=== PATIENT | male | born 1995 | race American Indian/Alaskan Native ===

== ENCOUNTER → 2016-08-02 | Outpatient (CLI) | payer BC ==
[~2016-08-02] MED LIST: CNC/36 PO; CSPOPS; TRAVATAN Z OPTH
--- NOTE | 2016-08-02 08:41 | DIAGNOSTIC IMAGING REPORT ---
THYROID ULTRASOUND CLINICAL HISTORY: Cervicalgia. COMPARISON STUDY: None. TECHNIQUE: Sonography of the thyroid gland was performed. In addition, sonography of the right aspect of the neck at site of maximal pain was performed. FINDINGS: The right thyroid lobe measures 5.3 x 1.3 x 1.7 cm and the left lobe measures 5.8 x 1.7 x 1.6 cm. No thyroid nodules are identified. The gland is normal in appearance. The isthmus measures 0.4 cm in thickness. Sonography of the right aspect of the neck at site of pain demonstrated no abnormality. A few morphologically benign lymph nodes were noted. IMPRESSION: 1. Normal sonographic appearance of the thyroid gland. 2. No sonographic abnormality identified within the right neck at site of pain. Several morphologically benign lymph nodes. Electronically signed by: Russell Knapp M.D. 08/02/2016 8:40 AM Dictated Date/Time: 08/02/2016 8:38 AM
== END | disposition home or self-care (01) ==
LOC: C.ULTR 08:12
PROVIDERS: ATTEND Family Medicine
DX: M54.2 Cervicalgia (principal)

== ENCOUNTER 2020-04-01 10:40 | Inpatient (IN) ==
[2020-04-01] MEDS ORDERED: cefTRIAXone SODIUM 1,000 MG/50 ML BAG IV STA (11:32)
[2020-04-01] MEDS ORDERED: MoRPHine SULFATE 4 MG/ML 1 ML CARP\\VIAL IV STA ×2 (11:36→14:26)
[2020-04-01 12:28] LABS: Basophils # (auto) 0.03 K/uL (0-0.2); Basophils % (auto) 0.2 %; Eosinophils # (auto) 0.22 K/uL (0-0.5); Eosinophils % (auto) 1.4 %; Hematocrit (blood only) 49.6 % (42-52); Hemoglobin 17.3 g/dL (14.0-18.0); Immature Granulocytes # (auto) 0.03 K/uL (0.00-0.02); Immature Granulocytes % (auto) 0.2 %; Lymphocytes # (auto) 2.01 K/uL (1.2-3.4); Lymphocytes % (auto) 13.2 %; Mean Corpuscular Hemoglobin 29.2 pg (25-34); Mean Corpuscular Hgb Conc 34.9 g/dL (32-36); Mean Corpuscular Volume 83.8 fL (80-100); Monocytes # (auto) 1.73 K/uL (0.11-0.59); Monocytes % (auto) 11.4 %; Neutrophils # (auto) 11.21 K/uL (1.4-6.5); Neutrophils % (auto) 73.6 %; Platelet Count 209 K/uL (130-400); RDW Coefficient of Variation 12.7 % (11.5-14.5); RDW Standard Deviation 38.5 fL (36.4-46.3); Red Blood Count 5.92 M/uL (4.7-6.1); White Blood Count 15.23 K/uL (4.8-10.8)
[2020-04-01 12:43] LABS: INR 1.1 (0.9-1.1); Partial Thromboplastin Ratio 1.2; Partial Thromboplastin Time 32.1 Seconds (21.0-31.0); Prothrombin Time 11.9 Seconds (9.0-12.0)
[2020-04-01 12:47] LABS: Albumin Level 4.2 gm/dl (3.4-5.0); BUN Creatinine Ratio 14.9 (10-20); Calcium 10.2 mg/dl (8.5-10.1); Creatinine Clr Calc Pharmacy 96.1 ml/min; Est GFR (African American) 134.4; Potassium 4.1 mmol/L (3.5-5.1)
[2020-04-01 12:49] LABS: Albumin Globulin Ratio 0.9 (0.9-2); Bilirubin,Total 1.2 mg/dl (0.2-1); C Reactive Protein 10.5 mg/dl (0-0.29); Globulin 4.6 gm/dl (2.5-4.0); Total Protein 8.8 gm/dl (6.4-8.2)
[2020-04-01 13:23] LABS: Lyme Ab IgG w/WB Rflx Negative (Negative); Lyme Ab IgM w/WB Rflx Negative (Negative)
[2020-04-01] MEDS ORDERED: IOVERSOL 100ml IV ONE (13:34)
--- NOTE | 2020-04-01 13:56 | CT Scan Report ---
ABDOMEN AND PELVIS CT WITH IV CONTRAST CT DOSE: 250.35 mGy.cm HISTORY: Acute infection of the right leg and inguinal tissues. right groin erythema, induration, de creased ROM TECHNIQUE: Multiaxial CT images of the abdomen and pelvis were performed following the IV administrat ion of 94 cc of Optiray 320, A dose lowering technique was utilized adhering to the principles of AL MISHA. COMPARISON STUDY: CT abdomen and pelvis 03/06/2020 FINDINGS: Clear lung bases. No pneumatosis or pneumoperitoneum. The imaged inferior cardiac chambers are unrema rkable. Pectus excavatum. Spleen, pancreas, adrenal glands, gallbladder and liver are unremarkable. T here is patency of the hepatic and portal veins. Kidneys and ureters are unremarkable. Mild nonspecif ic urinary bladder wall thickening. The prostate is mildly prominent in size. Aorta and IVC are withi n normal limits. No bowel obstruction or bowel wall thickening. Mild fecal retention. Scattered small bowel air-fluid levels, likely physiologic. The appendix is noninflamed. There is moderate edema of the anterior right pelvic wall extending into the right inguinal tissues. There is associated skin thickening and enhancement. Multiloculated fluid collection of the anterior abdominal wall superficial to the anterior inferior iliac spine is noted with the more superior porti on of the collection measuring 2.9 x 1.0 cm in the lower portion of the collection measuring 2.4 x 0. 6 cm demonstrating peripheral enhancement. Prominent right inguinal chain lymph nodes measure up to 8 mm. Bones appear intact. IMPRESSION: 1. Subcutaneous edema and skin thickening of the lower right anterior pelvic wall extending into the right inguinal tissues suggests acute cellulitis. Additionally, there is a small multiloculated curvi linear fluid collection suggestive of abscess, largest pocket measuring up to 2.9 x 1.0 cm. 2. Reactive right inguinal chain adenopathy. 3. No acute intra-abdominal or intrapelvic abnormality. 4. Normal appendix. ACT 112: Negative or not required by law. The above report was generated using voice recognition software. It may contain grammatical, syntax o r spelling errors. Electronically signed by: Bal Ziegler M.D. 04/01/2020 1:55 PM
--- NOTE | 2020-04-01 14:45 | Emergency Department Note ---
History of Present Illness General Chief complaint: Infection Stated complaint: LEG INFECTION Time Seen by Provider: 04/01/20 11:06 Source: patient Mode of arrival: ambulatory Limitations: no limitations History of Present Illness Provider Complaint: + abscess/boil and + discoloration Onset (ago): 2 day(s) Tetanus up to date: yes Location: + RLE (right groin) Severity: severe Maximum Pain Intensity: 7 Current Pain Intensity: 7 Quality: + aching and + sharp Pain Consistency: + constant Relieved By: + immobilization Exacerbated By: + palpation and + movement Context: + none Associated symptoms: + fever, + chills and + malaise Treatments prior to arrival: + antibiotic (Bactrim x2 doses) HPI narrative: This 24-year-old male patient with significant past medical history of CMT and "bladder control issues" presents to the emergency department today for evaluation of right groin infection. The patient states 2 days ago, he noticed a blackhead in the right groin. He thought it to be associated with an ingrown hair. He saw [employer] [facility] yesterday and was started on Bactrim. He states at that time, the pain was radiating toward his hip and further into the groin. The patient reports significant pain with palpation. He was started on Bactrim at this time and has taken 2 doses. He followed up with his PCP today and was sent to the ED for further evaluation. The patient reports a fever of 101 F last night. He reports associated chills and sweats and is feeling somewhat short of breath. Movement makes the pain significantly worse, as does palpation. Remaining still seems to help somewhat. The patient did take a tramadol last evening without relief. He did not take any medication for his symptoms today. He denies any active discharge or bleeding. He denies any trauma to the area. He is having difficulty with ambulation due to the pain. Home Medications Home Medications Medication Instructions Recorded Confirmed Type cyclobenzaprine 10 mg PO TID PRN 07/17/19 04/01/20 History albuterol sulfate 2 puff INHALATION QID PRN 03/06/20 04/01/20 History food supplemt, lactose-reduced 1 ea PO TID 03/06/20 04/01/20 History [Ensure High Protein] nystatin [Nystop] 1 applic TOPICAL BID 03/06/20 04/01/20 History oxybutynin chloride 10 mg PO DAILY 03/06/20 04/01/20 History tramadol [Ultram] 50 mg PO Q6 PRN 03/06/20 04/01/20 History Allergies Allergy/AdvReac Type Severity Reaction Status Date / Time bee venom protein (honey bee) Allergy Unknown Verified 04/01/20 11:17 pollen extracts Allergy Unknown Verified 04/01/20 11:17 PEANUT CONTAING DRUG PRODUCTS Allergy Unknown Uncoded 04/01/20 11:17 Past Med/Surg History Medical History Eoockcb-Lnjil-Lrtqs disease Glaucoma Surgical History No pertinent past surgical history Family History Other No known problems Social History Smoking Status: Current every day smoker Tobacco Type: Cigarettes Preferred Language: Austrian marital status: single current occupational status: employed Feels Safe at Home: Yes Review of Systems A total of 10 systems reviewed and were otherwise negative Physical Exam Vital Signs: Vital Signs - 24 hr 04/01/20 10:45 04/01/20 12:32 04/01/20 14:00 Temperature 36.6 C Temperature Source Oral Pulse Rate 108 H Pulse Rate [Apical ] 94 H 90 Respiratory Rate 18 20 16 Blood Pressure 127/79 Blood Pressure [Le ft Arm] 124/76 130/69 Blood Pressure Juliane n 95 Blood Pressure Juliane n [Left Arm] 92 89 Pulse Oximetry 100 99 98 Oxygen Delivery Me thod Room Air Room Air Room Air Sepsis Recent Feve r Within 48 Hours No Sepsis New/Unexpla ined Change in Men sima Status No Sepsis Action Take n by Nursing No Action Required 04/01/20 16:16 Temperature Temperature Source Pulse Rate Pulse Rate [Apical ] 89 Respiratory Rate 18 Blood Pressure Blood Pressure [Le ft Arm] 131/79 Blood Pressure Juliane n Blood Pressure Juliane n [Left Arm] 96 Pulse Oximetry 99 Oxygen Delivery Me thod Room Air Sepsis Recent Feve r Within 48 Hours Sepsis New/Unexpla ined Change in Men sima Status Sepsis Action Take n by Nursing Physical Exam: VITALS: Vitals are noted on the nurse's note and reviewed by myself. Patient is tachycardic. GENERAL: This is a 24-year-old white male, in no acute distress, nondiaphoretic, well-developed well-nourished. SKIN: Extensive cellulitis of the right groin with abscess approximately 3 x 3 cm with pinpoint opening. Warmth, erythema, and significant tenderness of the groin. There is cellulitic changes extending up toward the right abdominal wall and into the right scrotum. The skin was otherwise without rashes, erythema, edema, or bruising. There is no tenting of the skin. Capillary refill less than 2 seconds. HEAD: Normocephalic atraumatic. EYES: Conjunctivae without injection, sclerae without icterus. NECK: Supple without nuchal rigidity. No cervical lymphadenopathy. HEART: Regular rate and rhythm without murmurs gallops or rubs. LUNGS: Clear to auscultation bilaterally without wheezes, rales or rhonchi. No retractions or accessory muscle use. ABDOMEN: Positive bowel sounds x 4. Normal tympanic percussion. Soft, nontender, without masses or organomegaly. No guarding or rebound tenderness. MUSCULOSKELETAL: No muscle atrophy, erythema, or edema noted. Significant tenderness with range of motion of the right lower extremity at the hip. Full range of motion without joint tenderness in all extremities. No tenderness to palpation. Lymph gait. Strength 5/5 throughout. NEURO: Patient was alert and oriented to person place and time. Normal sensation to light and sharp touch. Deep tendon reflexes 2+ throughout. No focal neurological deficits. Course Course The patient was seen and evaluated as above. An order was placed for continuous cardiac monitoring. The monitor shows a sinus tachycardia at a rate of 115 bpm. IV access obtained, labs drawn. Patient medicated with IV fluids, morphine, and ceftriaxone. Imaging performed and reviewed by myself and radiologist as noted. Labs reviewed by myself. I discussed the findings with the patient at bedside. I discussed the case with my attending. I consulted Dr. Apple, general surgeon on-call. She did agree to see and ev aluate the patient and ultimately performed an I&D. She is requesting that the patient be admitted to medicine for 2 days of IV antibiotics and she will consult. I discussed the case with Manjula Morales PA-C with [facility] service. She did agree to see and evaluate the patient for admission. Administered Medications Discontinued Medications Ceftriaxone Sodium (Rocephin) 1,000 mg in 50 mls @ 100 mls/hr IV NOW STA Stop: 04/01/20 12:01 Last Infusion: 04/01/20 13:05 Dose: 0 mls/hr Documented by: [id number] Admin: 04/01/20 12:24 Dose: 100 mls/hr Documented by: [id number] Ioversol (Ioversol 100ml) 94 ml IV ONCE ONE Stop: 04/01/20 13:35 Last Admin: 04/01/20 13:35 Dose: 94 ml Documented by: [id number] Morphine Sulfate (Morphine Sulfate 4 Mg/Ml 1 Ml Carp\\Vial) 4 mg IV NOW STA Stop: 04/01/20 11:37 Last Admin: 04/01/20 12:25 Dose: 4 mg Documented by: [id number] Morphine Sulfate (Morphine Sulfate 4 Mg/Ml 1 Ml Carp\\Vial) 4 mg IV NOW STA Stop: 04/01/20 14:27 Last Admin: 04/01/20 14:46 Dose: 4 mg Documented by: [id number] Medical Decision Making Differential Diagnosis + abscess of skin or subcutaneous tissue, + dermatophytosis, + herpes zoster, + cellulitis, + cellulitis, + necrotizing fasciitis and + drug eruption Home Medications Current Medication List: was personally reviewed by me Laboratory Data Attestation: I reviewed the patient's lab results. Leukocytosis of 15,000. No anemia or thrombocytopenia. Inflammatory markers e levated. Renal, hepatic function and electrolytes without significant abnormality. Coags normal. Lactic acid 1.2. Lyme disease testing negative. Result diagrams: 04/01/20 12:00 04/01/20 12:00 Lab Results 04/01/20 04/01/20 04/01/20 Range/Units 12:00 12:00 12:00 WBC 15.23 H (4.8-10.8) K/uL RBC 5.92 (4.7-6.1) M/uL Hgb 17.3 (14.0-18.0) g/dL Hct 49.6 (42-52) % MCV 83.8 (80-100) fL MCH 29.2 (25-34) pg MCHC 34.9 (32-36) g/dL RDW Std Deviation 38.5 (36.4-46.3) fL RDW Coeff of Ashok 12.7 (11.5-14.5) % Plt Count 209 (130-400) K/uL MPV 10.0 (7.4-10.4) fL Immature Gran % (Auto) 0.2 % Neut % (Auto) 73.6 % Lymph % (Auto) 13.2 % [place] % (Auto) 11.4 % Eos % (Auto) 1.4 % Baso % (Auto) 0.2 % Neut # (Auto) 11.21 H (1.4-6.5) K/uL Lymph # (Auto) 2.01 (1.2-3.4) K/uL [place] # (Auto) 1.73 H (0.11-0.59) K/uL Eos # (Auto) 0.22 (0-0.5) K/uL Baso # (Auto) 0.03 (0-0.2) K/uL Immature Gran # (Auto) 0.03 H (0.00-0.02) K/uL ESR 42 H (0-14) mm/hr PT (9.0-12.0) Seconds INR (0.9-1.1) APTT (21.0-31.0) Seconds PTT Ratio Sodium 134 L (136-145) mmol/L Potassium 4.1 (3.5-5.1) mmol/L Chloride 101 (98-107) mmol/L Carbon Dioxide 26 (21-32) mmol/L Anion Gap 7.0 (3-11) BUN 14 (7-18) mg/dl Creatinine 0.92 (0.6-1.4) mg/dl Est Cr Clr Drug Dosing 96.1 ml/min Est GFR ( Amer) 134.4 Est GFR (Non-Af Amer) 116.0 BUN/Creatinine Ratio 14.9 (10-20) Glucose 83 (70-99) mg/dl Lactate (0.4-2.0) mmol/L Calcium 10.2 H (8.5-10.1) mg/dl Total Bilirubin 1.2 H (0.2-1) mg/dl AST 15 (15-37) U/L ALT 25 (12-78) U/L Alkaline Phosphatase 72 (45-117) U/L C-Reactive Protein 10.50 H (0-0.29) mg/dl Total Protein 8.8 H (6.4-8.2) gm/dl Albumin 4.2 (3.4-5.0) gm/dl Globulin 4.6 H (2.5-4.0) gm/dl Albumin/Globulin Ratio 0.9 (0.9-2) Lyme Disease IgG Ab (Negative) Lyme Disease IgM Ab (Negative) 04/01/20 04/01/20 04/01/20 Range/Units 12:00 12:00 12:00 WBC (4.8-10.8) K/uL RBC (4.7-6.1) M/uL Hgb (14.0-18.0) g/dL Hct (42-52) % MCV (80-100) fL MCH (25-34) pg MCHC (32-36) g/dL RDW Std Deviation (36.4-46.3) fL RDW Coeff of Ashok (11.5-14.5) % Plt Count (130-400) K/uL MPV (7.4-10.4) fL Immature Gran % (Auto) % Neut % (Auto) % Lymph % (Auto) % [place] % (Auto) % Eos % (Auto) % Baso % (Auto) % Neut # (Auto) (1.4-6.5) K/uL Lymph # (Auto) (1.2-3.4) K/uL [place] # (Auto) (0.11-0.59) K/uL Eos # (Auto) (0-0.5) K/uL Baso # (Auto) (0-0.2) K/uL Immature Gran # (Auto) (0.00-0.02) K/uL ESR (0-14) mm/hr PT 11.9 (9.0-12.0) Seconds INR 1.1 (0.9-1.1) APTT 32.1 H (21.0-31.0) Seconds PTT Ratio 1.2 Sodium (136-145) mmol/L Potassium (3.5-5.1) mmol/L Chloride (98-107) mmol/L Carbon Dioxide (21-32) mmol/L Anion Gap (3-11) BUN (7-18) mg/dl Creatinine (0.6-1.4) mg/dl Est Cr Clr Drug Dosing ml/min Est GFR ( Amer) Est GFR (Non-Af Amer) BUN/Creatinine Ratio (10-20) Glucose (70-99) mg/dl Lactate 1.2 (0.4-2.0) mmol/L Calcium (8.5-10.1) mg/dl Total Bilirubin (0.2-1) mg/dl AST (15-37) U/L ALT (12-78) U/L Alkaline Phosphatase (45-117) U/L C-Reactive Protein (0-0.29) mg/dl Total Protein (6.4-8.2) gm/dl Albumin (3.4-5.0) gm/dl Globulin (2.5-4.0) gm/dl Albumin/Globulin Ratio (0.9-2) Lyme Disease IgG Ab Negative (Negative) Lyme Disease IgM Ab Negative (Negative) Imaging Data Radiologist's Impression: ABDOMEN AND PELVIS CT WITH IV CONTRAST CT DOSE: 250.35 mGy.cm HISTORY: Acute infection of the right leg and inguinal tissues. right groin erythema, induration, decreased ROM TECHNIQUE: Multiaxial CT images of the abdomen and pelvis were performed following the IV administration of 94 cc of Optiray 320, A dose lowering technique was utilized adhering to the principles of ALARA. COMPARISON STUDY: CT abdomen and pelvis 03/06/2020 FINDINGS: Clear lung bases. No pneumatosis or pneumoperitoneum. The imaged inferior cardiac chambers are unremarkable. Pectus excavatum. Spleen, pancreas, adrenal glands, gallbladder and liver are unremarkable. There is patency of the hepatic and portal veins. Kidneys and ureters are unremarkable. Mild nonspecific urinary bladder wall thickening. The prostate is mildly prominent in size. Aorta and IVC are within normal limits. No bowel obstruction or bowel wall thickening. Mild fecal retention. Scattered small bowel air-fluid levels, likely physiologic. The appendix is noninflamed. There is moderate edema of the anterior right pelvic wall extending into the rig ht inguinal tissues. There is associated skin thickening and enhancement. Multiloculated fluid collection of the anterior abdominal wall superficial to the anterior inferior iliac spine is noted with the more superior portion of the collection measuring 2.9 x 1.0 cm in the lower portion of the collection measuring 2.4 x 0.6 cm demonstrating peripheral enhancement. Prominent right inguinal chain lymph nodes measure up to 8 mm. Bones appear intact. IMPRESSION: 1. Subcutaneous edema and skin thickening of the lower right anterior pelvic wall extending into the right inguinal tissues suggests acute cellulitis. Additionally, there is a small multiloculated curvilinear fluid collection suggestive of abscess, largest pocket measuring up to 2.9 x 1.0 cm. 2. Reactive right inguinal chain adenopathy. 3. No acute intra-abdominal or intrapelvic abnormality. 4. Normal appendix. ACT 112: Negative or not required by law. The above report was generated using voice recognition software. It may contain grammatical, syntax or spelling errors. Electronically signed by: Bal Ziegler M.D. 04/01/2020 1:55 PM Blood Pressure Blood Pressure Findings: Elevated blood pressure Blood Pressure Disposition: elevated BP felt to be situational MDM Narrative This 24-year-old male patient presents to the emergency department today for evaluation of an abscess in the right groin. Patient does have a multiloculated abscess noted in the right groin on CT imaging. He does have a leukocytosis of 15,000 and was febrile last evening. Given the location and size of the abscess , I did elect to contact the general surgeon on-call, Dr. Apple, who did see and evaluate the patient. She did perform a bedside I&D in the emergency department. She is recommending the patient be admitted to the medicine service for IV antibiotics and she will follow-up regarding the abscess. I did discuss the case with the [facility] hospitalist service, who were agreeable to the admission. Please see hospitalist and surgery dictation regarding ongoing management care of this patient. The chart was completed utilizing [employer] voice recognition software. Grammatical errors, random word insertions, pronoun errors, and incomplete sentences are an occasional consequence of this system due to software limitations, ambient noise, and hardware issues. Any formal questions or rema rns about the content, text, or information contained within the body of this dictation should be directly addressed to the provider for clarification. Impression & Plan Cellulitis of groin, right, Abscess of groin, right Discharge Plan Visit Data Chief Complaint: Infection Stated Complaint: LEG INFECTION ED Provider: Serjio Stone ED Midlevel Provider: Sena Cash Discharge Problem: Cellulitis of groin, right, Abscess of groin, right Patient Disposition: Admitted As Inpatient Forms Stand Alone Forms: [facility] Prescriptions Prescriptions: No Action cyclobenzaprine 10 mg Tablet 10 mg PO TID PRN (Reason: muscle spasms) RF: 0 oxybutynin chloride 15 mg tablet extended release 24hr 10 mg PO DAILY RF: 0 tramadol [Ultram] 50 mg tablet 50 mg PO Q6 PRN (Reason: Pain) RF: 0 nystatin [Nystop] 100,000 unit/gram powder 1 applic TOPICAL BID RF: 0 albuterol sulfate 90 mcg/actuation HFA aerosol inhaler 2 puff INHALATION QID PRN (Reason: Shortness Of Breath Or Wheezing) RF: 0 Ensure High Protein Liquid 1 ea PO TID RF: 0 Referrals Referrals: Everardo Lemons MD [Primary Care Provider] -
[2020-04-01] MEDS ORDERED: LIDO/EPINEPHRINE/SOD BICARB 20 ML VIAL ONE (15:44)
--- NOTE | 2020-04-01 16:07 | Surgery Consultation ---
Date of Consultation April 01, 2020 Assessment & Plan (1) Cellulitis of groin, right: Extensive cellulitis of right groin with small abscess. Abscess drained at bedside and wound packed. Wound culture taken. Needs IV antibiotics for likely 48 hrs prior to conversion to oral. Small wound can just be packed overnight - will remove packing after 24 hrs. Present on Admission?: Yes (2) Ctikxbu-Rcebd-Vpcri disease: Urinary incontinence. Present on Admission?: Yes History of Present Illness Reason for Consultation: right groin cellulitis Requesting Physician: JIMI Angel History of Present Illness 24 yr old man with right groin cellulitis and small abscess. Started as an ingrown hair two days ago. Worsened with increased pain. [facility]- no treatment given. Swelling/ pain worsened, hard to move around, pain is very intense, radiates into upper lateral chest and down into testicle. No drainage. Fever last night. Came to ER for evaluation. CT scan shows extensive cellulitis with small 2.4 cm abscess (two smaller joined abscesses). No prior skin infections. No history of MRSA contacts. Allergies Allergy/AdvReac Type Severity Reaction Status Date / Time bee venom protein (honey bee) Allergy Unknown Verified 04/01/20 11:17 pollen extracts Allergy Unknown Verified 04/01/20 11:17 PEANUT CONTAING DRUG PRODUCTS Allergy Unknown Uncoded 04/01/20 11:17 Home Medications Home Medications Medication Instructions Recorded Confirmed Type cyclobenzaprine 10 mg PO TID PRN 07/17/19 04/01/20 History albuterol sulfate 2 puff INHALATION QID PRN 03/06/20 04/01/20 History food supplemt, lactose-reduced 1 ea PO TID 03/06/20 04/01/20 History [Ensure High Protein] nystatin [Nystop] 1 applic TOPICAL BID 03/06/20 04/01/20 History oxybutynin chloride 10 mg PO DAILY 03/06/20 04/01/20 History tramadol [Ultram] 50 mg PO Q6 PRN 03/06/20 04/01/20 History Patient History Medical History Pamykdz-Ambcg-Pvigk disease Glaucoma Surgical History No pertinent past surgical history Family History Other No known problems Social History Smoking Status: Current every day smoker Tobacco Type: Cigarettes Preferred Language: Qatari marital status: single current occupational status: employed Feels Safe at Home: Yes Review of Systems Review of Systems: All systems reviewed & are unremarkable except as noted in HPI & below Physical Exam Constitutional: WD/WN, vitals as above Skin: Extensive cellulitis of groin with small superficial abscess measuring 2x3 cm with pinpoint opening. Smaller 2 mm pustule medial groin. Warmth, erythema, tenderness are present. Neurologic: moves all extremities; no focal motor deficits Psychiatric: Orientation: alert and oriented x 3 Results & Data ([facility]) Vital Signs (Past 12 Hours) Vital Signs Temp Pulse Pulse Resp BP BP Pulse Ox 04/01/20 14:00 90 16 130/69 98 04/01/20 12:32 94 H 20 124/76 99 04/01/20 10:45 36.6 C 108 H 18 127/79 100 Laboratory Results Abnormal lab results 04/01/20 04/01/20 04/01/20 Range/Units 12:00 12:00 12:00 WBC 15.23 H (4.8-10.8) K/uL Neut # (Auto) 11.21 H (1.4-6.5) K/uL [place] # (Auto) 1.73 H (0.11-0.59) K/uL Immature Gran # (Auto) 0.03 H (0.00-0.02) K/uL ESR 42 H (0-14) mm/hr APTT (21.0-31.0) Seconds Sodium 134 L (136-145) mmol/L Calcium 10.2 H (8.5-10.1) mg/dl Total Bilirubin 1.2 H (0.2-1) mg/dl C-Reactive Protein 10.50 H (0-0.29) mg/dl Total Protein 8.8 H (6.4-8.2) gm/dl Globulin 4.6 H (2.5-4.0) gm/dl 04/01/20 Range/Units 12:00 WBC (4.8-10.8) K/uL Neut # (Auto) (1.4-6.5) K/uL [place] # (Auto) (0.11-0.59) K/uL Immature Gran # (Auto) (0.00-0.02) K/uL ESR (0-14) mm/hr APTT 32.1 H (21.0-31.0) Seconds Sodium (136-145) mmol/L Calcium (8.5-10.1) mg/dl Total Bilirubin (0.2-1) mg/dl C-Reactive Protein (0-0.29) mg/dl Total Protein (6.4-8.2) gm/dl Globulin (2.5-4.0) gm/dl Diagnostic Findings IMPRESSION: 1. Subcutaneous edema and skin thickening of the lower right anterior pelvic wall extending into the right inguinal tissues suggests acute cellulitis. Additionally, there is a small multiloculated curvilinear fluid collection suggestive of abscess, largest pocket measuring up to 2.9 x 1.0 cm. 2. Reactive right inguinal chain adenopathy. 3. No acute intra-abdominal or intrapelvic abnormality. 4. Normal appendix.
[2020-04-01] MEDS ORDERED: LIDOCAINE/EPINEPHRINE 1% 20 ML VIAL INFIL ONE (16:23)
--- NOTE | 2020-04-01 16:23 | Operative Report ---
Post Operative Report Pre & Post Diagnosis right groin cellulitis with small abscess I identified the patient and participated in the time-out.: Yes Procedure incision and drainage of right groin abscess at bedside Surgeon Ana Paula Apple MD Seismograph Observer none Estimated Blood Loss 1 Findings Consistent with Post-Op Diagnosis small near 3 cm cavity filled with about 2 cc of pus (sent for culture) Fluids none Specimens wound culture right groin Drains none Anesthesia Type Local Complications none Indications 24 yr old man presents with small right groin abscess and extensive cellulitis of right groin. Description of Procedure The patient had already received 8 mg of morphine. After consent was signed, his right groin was prepped with betadine. 20 cc of 1% lidocaine with epi were injected into the wound. The small pinpoint opening was opened and extended medially. An abscess cavity was entered and drained of pus. A wound culture was taken. The wound was irrigated and then packed with iodoform. Sterile dressing was applied. He tolerated the procedure well. I attest to the content of the Intraoperative Record and any orders documented therein. Any exceptions are noted below.
--- NOTE | 2020-04-01 16:33 | History & Physical Report ---
Date of Service April 01, 2020 Assessment & Plan (1) Abscess of groin, right: (2) Cellulitis of groin, right: This is a 24yo M with PMH of Charcot-Elizabeth disease, pruritic interigo who presents with right groin abscess x 2 days. -Afebrile, hemodynamically stable. Leukocytosis of 15.23 -CT abd/pelvis with subcutaneous edema and skin thickening of the lower right anterior pelvic wall extending into the right inguinal tissues suggests acute cellulitis. Additionally, there is a small multiloculated curvilinear fluid collection suggestive of abscess, largest pocket measuring up to 2.9 x 1.0 cm -S/p I&D at bedside in ED by Dr. Apple. Wound packed with culture taken. Per surgery, needs IV antibiotics for likely 48 hrs prior to conversion to oral -Continue Rocephin empirically to cover for MSSA while awaiting culture results. 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 Continue oxybutynin, flexeril PRN DVT Ppx: Jose hose, early ambulation Code status: FULL PCP: Cristo Dispo: Admit to med/surg. Plan to return home once medically stable. Patient seen in collaboration with Dr. Deshpande. Please see addendum. History of Present Illness Chief Complaint: groin cellulitis, abscess Primary Care Provider: Everardo Lemons MD This is a 24yo M with PMH of Charcot-Elizabeth disease, pruritic interigo who presents with right groin abscess x 2 days. Area of R lower abdomen into groin is painful to touch and red with purulent drainage. Was seen at [facility] urgent care 2 days ago and prescribed Bactrim without improvement. Was seen at [facility] today for further evaluation since pain worsened and is making walking around difficult. Describes pain as sharp, constant and worse with movement, extending from RLQ down to R testicle. Temp at office is 37.4 C. Endorses chills. Denies lightheadedness, visual changes, chest pain, palpitations, nausea, vomiting, dysuria, diarrhea or constipation. Has Charcot- Elizabeth disease and struggles with intermittent weakness and neurogenic urinary incontinence. Allergies Allergy/AdvReac Type Severity Reaction Status Date / Time peanut Allergy Unknown Peanut Verified 04/02/20 15:02 containing drug products - unknown bee venom protein (honey bee) Allergy Unknown Verified 04/01/20 11:17 pollen extracts Allergy Unknown Verified 04/01/20 11:17 Home Medications Home Medications Medication Instructions Recorded Confirmed Type cyclobenzaprine 10 mg PO TID PRN 07/17/19 04/01/20 History Ensure High Protein 1 ea PO TID 03/06/20 04/01/20 History albuterol sulfate 2 puff INHALATION QID PRN 03/06/20 04/01/20 History nystatin [Nystop] 1 applic TOPICAL BID 03/06/20 04/01/20 History oxybutynin chloride 10 mg PO DAILY 03/06/20 04/01/20 History cholecalciferol (vitamin D3) 1,250 mcg PO WK 04/01/20 04/01/20 History polyethylene glycol 3350 [Miralax] 17 g PO DAILY PRN #30 ea 04/03/20 Rx sulfamethoxazole-trimethoprim 1 tab PO BID 10 Days #20 tab 04/03/20 Rx tramadol [Ultram] 50 mg PO Q6 PRN #20 tab 04/03/20 Rx Past Med/Surg History Medical History Rpzxrke-Eavqp-Ygcxt disease Glaucoma Surgical History No pertinent past surgical history Family History Other No known problems Social History Smoking Status: Current every day smoker Tobacco Type: Cigarettes Second Hand Exposure: No; Do You Dip or Chew Tobacco: No; Tobacco Cessation Education Requested by Patient: Yes Hx Alcohol Use: Yes Alcohol type: beer, wine and hard liquor Hx Substance Use: Yes (medical marijuana card) Last Used Substance: Hours (ago) Last Used Substance Other:: Daily Preferred Language: [place] Obstetrics Nurse Practitioner Required: No Beliefs That Will Affect Care: None marital status: single Current Living Situation: Family current occupational status: employed Other Information That Helps Us Care for You: No Feels Safe at Home: Yes Safety Concerns: Feels Safe At This Time Assistive Devices: Glasses and Walker Review of Systems Review of Systems: At least ten systems reviewed and negative except as noted in the HPI. Physical Exam Physical Exam: General Appearance: vitals as above, sitting up in bed, pleasant, pain with movement Head: normocephalic, atraumatic Eyes: normal inspection, PERRL, conjunctivae normal, anicteric sclerae ENT: external ear and nose normal, oropharynx normal Neck: normal visual inspection, trachea midline, no thyromegaly Respiratory: normal respiratory effort, lungs clear to auscultation, no wheeze, rales, rhonchi. No accessory muscle use Cardiovascular: regular rate, rhythm, no murmur, normal peripheral pulses, no BLE edema. Vessels: no JVD Chest: normal inspection of chest Abdomen/GI: normal bowel sounds, soft, nontender, no hepatosplenomegaly Extremities/Musculoskeletal: no cyanosis or clubbing, extremities motor strength 5/5 Neurologic: PERRL, EOMI, accommodation nl, no face palsy, no dysarthria, CN's II-XI intact bilaterally and moves all extremities Psychiatric: A+Ox3, euthymic affect Skin: normal color, warm/dry + 2x3cm R groin area s/p I&D with packing in place with erythema and edema extending from RUQ to groin and R scrotum. Warmth and TTP Results & Data Results & Data ([facility]) Vital Signs (Past 12 Hours) Vital Signs Temp Pulse Pulse Resp BP BP Pulse Ox 04/01/20 16:16 89 18 131/79 99 04/01/20 14:00 90 16 130/69 98 04/01/20 12:32 94 H 20 124/76 99 04/01/20 10:45 36.6 C 108 H 18 127/79 100 Laboratory Results Short CBC 04/01/20 Range/Units 12:00 WBC 15.23 H (4.8-10.8) K/uL Hgb 17.3 (14.0-18.0) g/dL Hct 49.6 (42-52) % Plt Count 209 (130-400) K/uL BMP 04/01/20 12:00 Sodium 134 L Potassium 4.1 Chloride 101 Carbon Dioxide 26 BUN 14 Creatinine 0.92 Glucose 83 Calcium 10.2 H Liver Function 04/01/20 Range/Units 12:00 Total Bilirubin 1.2 H (0.2-1) mg/dl AST 15 (15-37) U/L ALT 25 (12-78) U/L Alkaline Phosphatase 72 (45-117) U/L Albumin 4.2 (3.4-5.0) gm/dl Diagnostic Findings CT abd/pelvis: IMPRESSION: 1. Subcutaneous edema and skin thickening of the lower right anterior pelvic wall extending into the right inguinal tissues suggests acute cellulitis. Additionally, there is a small multiloculated curvilinear fluid collection suggestive of abscess, largest pocket measuring up to 2.9 x 1.0 cm. 2. Reactive right inguinal chain adenopathy. 3. No acute intra-abdominal or intrapelvic abnormality. 4. Normal appendix. Code Status & VTE Plan VTE Prophylaxis Plan VTE Prophylaxis will be ordered: Yes Supervising Physician Co-Signing Physician Notes Pt was seen and examined. Agreed with Manjula EUGENE exam, assessment and plan. 24 yo M with PMH of Charcot-Elizabeth disease was sent from PCP office for right groin cellulitis and abscess. Pt said that he had an ingrown hair about two days ago that caused him to have right groin pain. He said that pain is worst with walking. He was seen at at the [facility] urgent care 2 days ago and was given Bactrim. Right groin area pain was worsening. She was seen his PCP today and was sent to the ER for eval. CT abd/pelvis showed subcutaneous edema and skin thickening of the lower right anterior pelvic wall extending into the right inguinal tissues suggests acute cellulitis. Additionally, there is a small multiloculated curvilinear fluid collection suggestive of abscess, largest pocket measuring up to 2.9 x 1.0 cm. Elevated WBC 15K on admission. Surgery was consulted in the ER for the right groin abscess incision and drainage by Dr. Apple. Wound cx was sent to the ER. Received IV Rocephin in the ER, will continue for now. Continue pain control. Continue monitor closely. MD Charlee
[2020-04-01] MEDS ORDERED: ACETAMINOPHEN 500 MG TAB PO PRN (17:01)
[2020-04-01] MEDS: KETOROLAC TROMETHAMINE 15 MG/ML VIAL IV PRN (17:08)
[2020-04-01] MEDS ORDERED: ALBUTEROL HFA 8 GM INHALER INH PRN (17:15)
[2020-04-01] MEDS ORDERED: POLYETHYLENE (MIRALAX) 17 GM PACK PO PRN (19:20)
[2020-04-01] MEDS ORDERED: ONDANSETRON INJ 2 MG/ML 2 ML VIAL IV PRN (19:20)
[2020-04-01] MEDS: traMADol HCL 50 MG TABLET PO PRN (19:30)
[2020-04-01] MEDS ORDERED: Nursing to Pharmacy Communication SCH (20:45)
[2020-04-01] MEDS: CYCLOBENZAPRINE HCL 10 MG TAB PO PRN (22:12)
[2020-04-01] MEDS: NICOTINE 14 MG/24 HR PATCH TD SCH (22:13)
[2020-04-01] MEDS: NYSTATIN POWDER 15GM BTL EXT SCH (22:20)
[2020-04-01 23:05] LABS: Appearance Urine Clear (Clear); Bacteria Urine Automated Negative (Negative); Bilirubin Urine Negative (Negative); Blood Urine Trace (Negative); Color Urine Yellow; Epithelial Cell Urine Auto 20-30 /lpf (0-5); Glucose Urine UA Negative (Negative); Ketones Urine Negative (Negative); Leukocyte Esterase Urine Trace (Negative); Nitrite Urine Negative (Negative); Protein Urine Negative (Negative); RBC Urine Automated 0-4 /hpf (0-4); Specific Gravity Urine 1.023 (1.000-1.030); Urobilinogen Urine Negative (Negative)
[2020-04-02] MEDS: traMADol HCL 50 MG TABLET PO PRN (02:12)
[2020-04-02] MEDS ORDERED: LACTATED RINGER'S 1,000 ML IV ONE (06:59)
[2020-04-02] MEDS: MoRPHine SULFATE 2 MG/ML CARP IV PRN ×2 (07:46→21:04)
[2020-04-02] MEDS: OXYBUTYNIN CHLORIDE XL 5 MG TABCR PO SCH (07:47)
[2020-04-02] MEDS: NYSTATIN POWDER 15GM BTL EXT SCH ×2 (07:47→21:07)
[2020-04-02 08:04] LABS: Hematocrit (blood only) 45.2 % (42-52); Hemoglobin 15.5 g/dL (14.0-18.0); Mean Corpuscular Hemoglobin 28.9 pg (25-34); Mean Corpuscular Hgb Conc 34.3 g/dL (32-36); Mean Corpuscular Volume 84.2 fL (80-100); Mean Platelet Volume 10.1 fL (7.4-10.4); Platelet Count 192 K/uL (130-400); RDW Standard Deviation 39.2 fL (36.4-46.3); Red Blood Count 5.37 M/uL (4.7-6.1); White Blood Count 11.72 K/uL (4.8-10.8)
[2020-04-02 08:44] LABS: BUN Creatinine Ratio 20.6 (10-20); Blood Urea Nitrogen 14 mg/dl (7-18); Calcium 9.1 mg/dl (8.5-10.1); Carbon Dioxide 25 mmol/L (21-32); Chloride 104 mmol/L (98-107); Creatinine Clr Calc Pharmacy 127.5 ml/min; Est GFR (African American) > 150.0; Est GFR (Non-African American) 133.7; Glucose 84 mg/dl (70-99); Potassium 4.2 mmol/L (3.5-5.1); Sodium 135 mmol/L (136-145)
[2020-04-02] MEDS: NICOTINE 14 MG/24 HR PATCH TD SCH (09:22)
[2020-04-02] MEDS ORDERED: cefTRIAXone SODIUM 1,000 MG in DEXTROSE 5% 50 ML IV SCH (11:00)
[2020-04-02] MEDS: KETOROLAC TROMETHAMINE 15 MG/ML VIAL IV PRN (11:14)
--- NOTE | 2020-04-02 11:14 | Surgery Progress Note ---
Date of Service April 02, 2020 Assessment & Plan (1) Abscess of groin, right: Postop day 1 status post I&D of inguinal abscess White blood cell count has decreased Cultures pending Continue antibiotics Encouraged ambulation Admission and Anticipated Discharge Date Admission Date: April 01, 2020 Subjective Still having pain in area of abscess Is able to ambulate Denies nausea and vomiting Physical Exam Physical Exam: Abscess without significant drainage Packing was in place Some tenderness in the surrounding area around the incision but no erythema Results & Data ([facility]) Vital Signs (Past 12 Hours) Vital Signs Temp Pulse Resp BP Pulse Ox 04/02/20 08:28 36.7 C 68 18 109/69 99 04/02/20 05:45 37.0 C 92 H 108/71 04/02/20 00:20 36.7 C 65 16 97/58 L 99 Laboratory Results 04/02/20 04/02/20 04/01/20 Range/Units 07:22 07:22 22:42 WBC 11.72 H (4.8-10.8) K/uL RBC 5.37 (4.7-6.1) M/uL Hgb 15.5 (14.0-18.0) g/dL Hct 45.2 (42-52) % MCV 84.2 (80-100) fL MCH 28.9 (25-34) pg MCHC 34.3 (32-36) g/dL RDW Std Deviation 39.2 (36.4-46.3) fL RDW Coeff of Ashok 13.0 (11.5-14.5) % Plt Count 192 (130-400) K/uL MPV 10.1 (7.4-10.4) fL Immature Gran % (Auto) % Neut % (Auto) % Lymph % (Auto) % [place] % (Auto) % Eos % (Auto) % Baso % (Auto) % Neut # (Auto) (1.4-6.5) K/uL Lymph # (Auto) (1.2-3.4) K/uL [place] # (Auto) (0.11-0.59) K/uL Eos # (Auto) (0-0.5) K/uL Baso # (Auto) (0-0.2) K/uL Immature Gran # (Auto) (0.00-0.02) K/uL ESR (0-14) mm/hr PT (9.0-12.0) Seconds INR (0.9-1.1) APTT (21.0-31.0) Seconds PTT Ratio Sodium 135 L (136-145) mmol/L Potassium 4.2 (3.5-5.1) mmol/L Chloride 104 (98-107) mmol/L Carbon Dioxide 25 (21-32) mmol/L Anion Gap 6.0 (3-11) BUN 14 (7-18) mg/dl Creatinine 0.68 (0.6-1.4) mg/dl Est Cr Clr Drug Dosing 127.5 ml/min Est GFR ( Amer) > 150.0 Est GFR (Non-Af Amer) 133.7 BUN/Creatinine Ratio 20.6 H (10-20) Glucose 84 (70-99) mg/dl Lactate (0.4-2.0) mmol/L Calcium 9.1 (8.5-10.1) mg/dl Total Bilirubin (0.2-1) mg/dl AST (15-37) U/L ALT (12-78) U/L Alkaline Phosphatase (45-117) U/L C-Reactive Protein (0-0.29) mg/dl Total Protein (6.4-8.2) gm/dl Albumin (3.4-5.0) gm/dl Globulin (2.5-4.0) gm/dl Albumin/Globulin Ratio (0.9-2) Urine Color Yellow Urine Appearance Clear (Clear) Urine pH 6.0 (4.5-7.5) Ur Specific [place] 1.023 (1.000-1.030) Urine Protein Negative (Negative) Urine Glucose (UA) Negative (Negative) Urine Ketones Negative (Negative) Urine Blood Trace H (Negative) Urine Nitrite Negative (Negative) Urine Bilirubin Negative (Negative) Urine Urobilinogen Negative (Negative) Ur Leukocyte Esterase Trace H (Negative) Urine WBC (Auto) 1-5 (0-5) /hpf Urine RBC (Auto) 0-4 (0-4) /hpf U Hyaline Cast (Auto) 1-5 (0-5) /lpf U Epithel Cells (Auto) 20-30 H (0-5) /lpf Urine Bacteria (Auto) Negative (Negative) Lyme Disease IgG Ab (Negative) Lyme Disease IgM Ab (Negative) 04/01/20 04/01/20 04/01/20 Range/Units 12:00 12:00 12:00 WBC (4.8-10.8) K/uL RBC (4.7-6.1) M/uL Hgb (14.0-18.0) g/dL Hct (42-52) % MCV (80-100) fL MCH (25-34) pg MCHC (32-36) g/dL RDW Std Deviation (36.4-46.3) fL RDW Coeff of Ashok (11.5-14.5) % Plt Count (130-400) K/uL MPV (7.4-10.4) fL Immature Gran % (Auto) % Neut % (Auto) % Lymph % (Auto) % [place] % (Auto) % Eos % (Auto) % Baso % (Auto) % Neut # (Auto) (1.4-6.5) K/uL Lymph # (Auto) (1.2-3.4) K/uL [place] # (Auto) (0.11-0.59) K/uL Eos # (Auto) (0-0.5) K/uL Baso # (Auto) (0-0.2) K/uL Immature Gran # (Auto) (0.00-0.02) K/uL ESR (0-14) mm/hr PT 11.9 (9.0-12.0) Seconds INR 1.1 (0.9-1.1) APTT 32.1 H (21.0-31.0) Seconds PTT Ratio 1.2 Sodium (136-145) mmol/L Potassium (3.5-5.1) mmol/L Chloride (98-107) mmol/L Carbon Dioxide (21-32) mmol/L Anion Gap (3-11) BUN (7-18) mg/dl Creatinine (0.6-1.4) mg/dl Est Cr Clr Drug Dosing ml/min Est GFR ( Amer) Est GFR (Non-Af Amer) BUN/Creatinine Ratio (10-20) Glucose (70-99) mg/dl Lactate 1.2 (0.4-2.0) mmol/L Calcium (8.5-10.1) mg/dl Total Bilirubin (0.2-1) mg/dl AST (15-37) U/L ALT (12-78) U/L Alkaline Phosphatase (45-117) U/L C-Reactive Protein (0-0.29) mg/dl Total Protein (6.4-8.2) gm/dl Albumin (3.4-5.0) gm/dl Globulin (2.5-4.0) gm/dl Albumin/Globulin Ratio (0.9-2) Urine Color Urine Appearance (Clear) Urine pH (4.5-7.5) Ur Specific [place] (1.000-1.030) Urine Protein (Negative) Urine Glucose (UA) (Negative) Urine Ketones (Negative) Urine Blood (Negative) Urine Nitrite (Negative) Urine Bilirubin (Negative) Urine Urobilinogen (Negative) Ur Leukocyte Esterase (Negative) Urine WBC (Auto) (0-5) /hpf Urine RBC (Auto) (0-4) /hpf U Hyaline Cast (Auto) (0-5) /lpf U Epithel Cells (Auto) (0-5) /lpf Urine Bacteria (Auto) (Negative) Lyme Disease IgG Ab Negative (Negative) Lyme Disease IgM Ab Negative (Negative) 04/01/20 04/01/20 04/01/20 Range/Units 12:00 12:00 12:00 WBC 15.23 H (4.8-10.8) K/uL RBC 5.92 (4.7-6.1) M/uL Hgb 17.3 (14.0-18.0) g/dL Hct 49.6 (42-52) % MCV 83.8 (80-100) fL MCH 29.2 (25-34) pg MCHC 34.9 (32-36) g/dL RDW Std Deviation 38.5 (36.4-46.3) fL RDW Coeff of Ashok 12.7 (11.5-14.5) % Plt Count 209 (130-400) K/uL MPV 10.0 (7.4-10.4) fL Immature Gran % (Auto) 0.2 % Neut % (Auto) 73.6 % Lymph % (Auto) 13.2 % [place] % (Auto) 11.4 % Eos % (Auto) 1.4 % Baso % (Auto) 0.2 % Neut # (Auto) 11.21 H (1.4-6.5) K/uL Lymph # (Auto) 2.01 (1.2-3.4) K/uL [place] # (Auto) 1.73 H (0.11-0.59) K/uL Eos # (Auto) 0.22 (0-0.5) K/uL Baso # (Auto) 0.03 (0-0.2) K/uL Immature Gran # (Auto) 0.03 H (0.00-0.02) K/uL ESR 42 H (0-14) mm/hr PT (9.0-12.0) Seconds INR (0.9-1.1) APTT (21.0-31.0) Seconds PTT Ratio Sodium 134 L (136-145) mmol/L Potassium 4.1 (3.5-5.1) mmol/L Chloride 101 (98-107) mmol/L Carbon Dioxide 26 (21-32) mmol/L Anion Gap 7.0 (3-11) BUN 14 (7-18) mg/dl Creatinine 0.92 (0.6-1.4) mg/dl Est Cr Clr Drug Dosing 96.1 ml/min Est GFR ( Amer) 134.4 Est GFR (Non-Af Amer) 116.0 BUN/Creatinine Ratio 14.9 (10-20) Glucose 83 (70-99) mg/dl Lactate (0.4-2.0) mmol/L Calcium 10.2 H (8.5-10.1) mg/dl Total Bilirubin 1.2 H (0.2-1) mg/dl AST 15 (15-37) U/L ALT 25 (12-78) U/L Alkaline Phosphatase 72 (45-117) U/L C-Reactive Protein 10.50 H (0-0.29) mg/dl Total Protein 8.8 H (6.4-8.2) gm/dl Albumin 4.2 (3.4-5.0) gm/dl Globulin 4.6 H (2.5-4.0) gm/dl Albumin/Globulin Ratio 0.9 (0.9-2) Urine Color Urine Appearance (Clear) Urine pH (4.5-7.5) Ur Specific [place] (1.000-1.030) Urine Protein (Negative) Urine Glucose (UA) (Negative) Urine Ketones (Negative) Urine Blood (Negative) Urine Nitrite (Negative) Urine Bilirubin (Negative) Urine Urobilinogen (Negative) Ur Leukocyte Esterase (Negative) Urine WBC (Auto) (0-5) /hpf Urine RBC (Auto) (0-4) /hpf U Hyaline Cast (Auto) (0-5) /lpf U Epithel Cells (Auto) (0-5) /lpf Urine Bacteria (Auto) (Negative) Lyme Disease IgG Ab (Negative) Lyme Disease IgM Ab (Negative)
--- NOTE | 2020-04-02 11:20 | Surgery Progress Note ---
Date of Service April 02, 2020 Assessment & Plan Admission and Anticipated Discharge Date Admission Date: April 01, 2020 Subjective Postoperative day #1 status post laparoscopic cholecystectomy and attempted ERCP Patient describes her pain as a 4 out of 5 She was ambulating in the halls Denies nausea and clear liquids Physical Exam Gastrointestinal (Abdomen): Inspection/Auscultation: + abdominal surgical incision (Clean, dry and intact); abdomen not distended Percussion/Palpation: + abdomen tender (Upper abdominal moderate tenderness) and abdomen soft Results & Data ([facility]) Vital Signs (Past 12 Hours) Vital Signs Temp Pulse Resp BP Pulse Ox 04/02/20 08:28 36.7 C 68 18 109/69 99 04/02/20 05:45 37.0 C 92 H 108/71 04/02/20 00:20 36.7 C 65 16 97/58 L 99 Laboratory Results 04/02/20 04/02/20 04/01/20 Range/Units 07:22 07:22 22:42 WBC 11.72 H (4.8-10.8) K/uL RBC 5.37 (4.7-6.1) M/uL Hgb 15.5 (14.0-18.0) g/dL Hct 45.2 (42-52) % MCV 84.2 (80-100) fL MCH 28.9 (25-34) pg MCHC 34.3 (32-36) g/dL RDW Std Deviation 39.2 (36.4-46.3) fL RDW Coeff of Ashok 13.0 (11.5-14.5) % Plt Count 192 (130-400) K/uL MPV 10.1 (7.4-10.4) fL Immature Gran % (Auto) % Neut % (Auto) % Lymph % (Auto) % [place] % (Auto) % Eos % (Auto) % Baso % (Auto) % Neut # (Auto) (1.4-6.5) K/uL Lymph # (Auto) (1.2-3.4) K/uL [place] # (Auto) (0.11-0.59) K/uL Eos # (Auto) (0-0.5) K/uL Baso # (Auto) (0-0.2) K/uL Immature Gran # (Auto) (0.00-0.02) K/uL ESR (0-14) mm/hr PT (9.0-12.0) Seconds INR (0.9-1.1) APTT (21.0-31.0) Seconds PTT Ratio Sodium 135 L (136-145) mmol/L Potassium 4.2 (3.5-5.1) mmol/L Chloride 104 (98-107) mmol/L Carbon Dioxide 25 (21-32) mmol/L Anion Gap 6.0 (3-11) BUN 14 (7-18) mg/dl Creatinine 0.68 (0.6-1.4) mg/dl Est Cr Clr Drug Dosing 127.5 ml/min Est GFR ( Amer) > 150.0 Est GFR (Non-Af Amer) 133.7 BUN/Creatinine Ratio 20.6 H (10-20) Glucose 84 (70-99) mg/dl Lactate (0.4-2.0) mmol/L Calcium 9.1 (8.5-10.1) mg/dl Total Bilirubin (0.2-1) mg/dl AST (15-37) U/L ALT (12-78) U/L Alkaline Phosphatase (45-117) U/L C-Reactive Protein (0-0.29) mg/dl Total Protein (6.4-8.2) gm/dl Albumin (3.4-5.0) gm/dl Globulin (2.5-4.0) gm/dl Albumin/Globulin Ratio (0.9-2) Urine Color Yellow Urine Appearance Clear (Clear) Urine pH 6.0 (4.5-7.5) Ur Specific [place] 1.023 (1.000-1.030) Urine Protein Negative (Negative) Urine Glucose (UA) Negative (Negative) Urine Ketones Negative (Negative) Urine Blood Trace H (Negative) Urine Nitrite Negative (Negative) Urine Bilirubin Negative (Negative) Urine Urobilinogen Negative (Negative) Ur Leukocyte Esterase Trace H (Negative) Urine WBC (Auto) 1-5 (0-5) /hpf Urine RBC (Auto) 0-4 (0-4) /hpf U Hyaline Cast (Auto) 1-5 (0-5) /lpf U Epithel Cells (Auto) 20-30 H (0-5) /lpf Urine Bacteria (Auto) Negative (Negative) Lyme Disease IgG Ab (Negative) Lyme Disease IgM Ab (Negative) 10/09/20 10/09/20 10/09/20 Range/Units 12:00 12:00 12:00 WBC (4.8-10.8) K/uL RBC (4.7-6.1) M/uL Hgb (14.0-18.0) g/dL Hct (42-52) % MCV (80-100) fL MCH (25-34) pg MCHC (32-36) g/dL RDW Std Deviation (36.4-46.3) fL RDW Coeff of Ashok (11.5-14.5) % Plt Count (130-400) K/uL MPV (7.4-10.4) fL Immature Gran % (Auto) % Neut % (Auto) % Lymph % (Auto) % [place] % (Auto) % Eos % (Auto) % Baso % (Auto) % Neut # (Auto) (1.4-6.5) K/uL Lymph # (Auto) (1.2-3.4) K/uL [place] # (Auto) (0.11-0.59) K/uL Eos # (Auto) (0-0.5) K/uL Baso # (Auto) (0-0.2) K/uL Immature Gran # (Auto) (0.00-0.02) K/uL ESR (0-14) mm/hr PT 11.9 (9.0-12.0) Seconds INR 1.1 (0.9-1.1) APTT 32.1 H (21.0-31.0) Seconds PTT Ratio 1.2 Sodium (136-145) mmol/L Potassium (3.5-5.1) mmol/L Chloride (98-107) mmol/L Carbon Dioxide (21-32) mmol/L Anion Gap (3-11) BUN (7-18) mg/dl Creatinine (0.6-1.4) mg/dl Est Cr Clr Drug Dosing ml/min Est GFR ( Amer) Est GFR (Non-Af Amer) BUN/Creatinine Ratio (10-20) Glucose (70-99) mg/dl Lactate 1.2 (0.4-2.0) mmol/L Calcium (8.5-10.1) mg/dl Total Bilirubin (0.2-1) mg/dl AST (15-37) U/L ALT (12-78) U/L Alkaline Phosphatase (45-117) U/L C-Reactive Protein (0-0.29) mg/dl Total Protein (6.4-8.2) gm/dl Albumin (3.4-5.0) gm/dl Globulin (2.5-4.0) gm/dl Albumin/Globulin Ratio (0.9-2) Urine Color Urine Appearance (Clear) Urine pH (4.5-7.5) Ur Specific [place] (1.000-1.030) Urine Protein (Negative) Urine Glucose (UA) (Negative) Urine Ketones (Negative) Urine Blood (Negative) Urine Nitrite (Negative) Urine Bilirubin (Negative) Urine Urobilinogen (Negative) Ur Leukocyte Esterase (Negative) Urine WBC (Auto) (0-5) /hpf Urine RBC (Auto) (0-4) /hpf U Hyaline Cast (Auto) (0-5) /lpf U Epithel Cells (Auto) (0-5) /lpf Urine Bacteria (Auto) (Negative) Lyme Disease IgG Ab Negative (Negative) Lyme Disease IgM Ab Negative (Negative) 04/01/20 04/01/20 04/01/20 Range/Units 12:00 12:00 12:00 WBC 15.23 H (4.8-10.8) K/uL RBC 5.92 (4.7-6.1) M/uL Hgb 17.3 (14.0-18.0) g/dL Hct 49.6 (42-52) % MCV 83.8 (80-100) fL MCH 29.2 (25-34) pg MCHC 34.9 (32-36) g/dL RDW Std Deviation 38.5 (36.4-46.3) fL RDW Coeff of Ashok 12.7 (11.5-14.5) % Plt Count 209 (130-400) K/uL MPV 10.0 (7.4-10.4) fL Immature Gran % (Auto) 0.2 % Neut % (Auto) 73.6 % Lymph % (Auto) 13.2 % [place] % (Auto) 11.4 % Eos % (Auto) 1.4 % Baso % (Auto) 0.2 % Neut # (Auto) 11.21 H (1.4-6.5) K/uL Lymph # (Auto) 2.01 (1.2-3.4) K/uL [place] # (Auto) 1.73 H (0.11-0.59) K/uL Eos # (Auto) 0.22 (0-0.5) K/uL Baso # (Auto) 0.03 (0-0.2) K/uL Immature Gran # (Auto) 0.03 H (0.00-0.02) K/uL ESR 42 H (0-14) mm/hr PT (9.0-12.0) Seconds INR (0.9-1.1) APTT (21.0-31.0) Seconds PTT Ratio Sodium 134 L (136-145) mmol/L Potassium 4.1 (3.5-5.1) mmol/L Chloride 101 (98-107) mmol/L Carbon Dioxide 26 (21-32) mmol/L Anion Gap 7.0 (3-11) BUN 14 (7-18) mg/dl Creatinine 0.92 (0.6-1.4) mg/dl Est Cr Clr Drug Dosing 96.1 ml/min Est GFR ( Amer) 134.4 Est GFR (Non-Af Amer) 116.0 BUN/Creatinine Ratio 14.9 (10-20) Glucose 83 (70-99) mg/dl Lactate (0.4-2.0) mmol/L Calcium 10.2 H (8.5-10.1) mg/dl Total Bilirubin 1.2 H (0.2-1) mg/dl AST 15 (15-37) U/L ALT 25 (12-78) U/L Alkaline Phosphatase 72 (45-117) U/L C-Reactive Protein 10.50 H (0-0.29) mg/dl Total Protein 8.8 H (6.4-8.2) gm/dl Albumin 4.2 (3.4-5.0) gm/dl Globulin 4.6 H (2.5-4.0) gm/dl Albumin/Globulin Ratio 0.9 (0.9-2) Urine Color Urine Appearance (Clear) Urine pH (4.5-7.5) Ur Specific [place] (1.000-1.030) Urine Protein (Negative) Urine Glucose (UA) (Negative) Urine Ketones (Negative) Urine Blood (Negative) Urine Nitrite (Negative) Urine Bilirubin (Negative) Urine Urobilinogen (Negative) Ur Leukocyte Esterase (Negative) Urine WBC (Auto) (0-5) /hpf Urine RBC (Auto) (0-4) /hpf U Hyaline Cast (Auto) (0-5) /lpf U Epithel Cells (Auto) (0-5) /lpf Urine Bacteria (Auto) (Negative) Lyme Disease IgG Ab (Negative) Lyme Disease IgM Ab (Negative)
[2020-04-02] MEDS ORDERED: LORazepam 0.5 MG TAB PO STA (14:50)
--- NOTE | 2020-04-02 18:47 | Hospitalist Progress Note ---
Date of Service April 02, 2020 Assessment & Plan (1) Abscess of groin, right: (2) Cellulitis of groin, right: This is a 24yo M with PMH of Charcot-Elizabeth disease, pruritic interigo who presents with right groin abscess x 2 days. Failed outpatient management with bactrim CT abd/pelvis with subcutaneous edema and skin thickening of the lower right anterior pelvic wall extending into the right inguinal tissues suggests acute cellulitis. Additionally, there is a small multiloculated curvilinear fluid collection suggestive of abscess, largest pocket measuring up to 2.9 x 1.0 cm S/p I&D day #[address] Apple. cx from the abscess groin area positive for staphylococcus species Continue daily wound care Continue IV Rocephin for now Continue pain control Continue monitor (3) Zkysguf-Cbtvm-Eofaa disease: Chronic issues include weakness and neurogenic urinary incontinence. Continue oxybutynin, flexeril PRN DVT Ppx: Jose hose, early ambulation Code status: FULL Dispo: Will discharge once medically stable Admission and Anticipated Discharge Date Admission Date: April 01, 2020 Subjective Pt was seen and examined. Lying in bed with no distress Pt said that he continues to have pain in his right groin area around the incision area He said that the pain medication helps Denies any chest pain, palpitation, dizziness and fever Physical Exam Physical Exam: General- No acute distress Head- atraumatic Eyes- PERRL, EOMI, ENT- oropharynx clear Neck- supple, no JVD Lungs- clear to auscultation Heart- regular rhythm; no murmur Abdomen- normal bowel sounds, soft, nontender Extremities- no calf tenderness Neuro- alert, oriented x 3; PERRL, EOMI; no facial palsy; no dysarthria Skin- warm & dry, right groin area incision, tenderness and mild erythema Results & Data Results & Data ([facility]) Vital Signs (Past 12 Hours) Vital Signs Temp Pulse Resp BP Pulse Ox 04/02/20 15:09 36.9 C 68 19 105/67 99 04/02/20 08:28 36.7 C 68 18 109/69 99
[2020-04-02] MEDS: CYCLOBENZAPRINE HCL 10 MG TAB PO PRN (22:39)
[2020-04-03] MEDS: traMADol HCL 50 MG TABLET PO PRN ×3 (02:20→17:47)
[2020-04-03 07:28] LABS: Hematocrit (blood only) 47.2 % (42-52); Hemoglobin 15.4 g/dL (14.0-18.0); Mean Corpuscular Hemoglobin 27.7 pg (25-34); Mean Corpuscular Hgb Conc 32.6 g/dL (32-36); Mean Corpuscular Volume 84.9 fL (80-100); Mean Platelet Volume 10.4 fL (7.4-10.4); Platelet Count 194 K/uL (130-400); RDW Coefficient of Variation 12.9 % (11.5-14.5); RDW Standard Deviation 39.8 fL (36.4-46.3); Red Blood Count 5.56 M/uL (4.7-6.1)
[2020-04-03 08:02] LABS: BUN Creatinine Ratio 15.2 (10-20); Calcium 9.6 mg/dl (8.5-10.1); Creatinine Clr Calc Pharmacy 109.7 ml/min; Est GFR (African American) 145.7; Est GFR (Non-African American) 125.7; Potassium 4.1 mmol/L (3.5-5.1)
[2020-04-03] MEDS: NYSTATIN POWDER 15GM BTL EXT SCH (09:14)
[2020-04-03] MEDS: NICOTINE 14 MG/24 HR PATCH TD SCH (09:25)
[2020-04-03] MEDS: OXYBUTYNIN CHLORIDE XL 5 MG TABCR PO SCH (09:26)
[2020-04-03] MEDS ORDERED: LORazepam 0.5 MG TAB PO ONE (09:41)
[2020-04-03] MEDS ORDERED: VANCOMYCIN CONSULT ACTIVE PRN (09:58)
[2020-04-03] MEDS ORDERED: SULFAMETHOXAZOLE/TRIMETHOPRIM DS 800/160MG TAB PO ONE (10:00)
--- NOTE | 2020-04-03 10:02 | Surgery Progress Note ---
Date of Service April 03, 2020 Assessment & Plan (1) Cellulitis of groin, right: overall improving. Culture grew MRSA. Would give 1 time dose of vanco (I ordered) and then OK to switch to PO bactrim. Asked him to express wound twice daily until no further drainage. OK to discharge on bactrim once pain issues are under control. OK to shower, surgical instructions reviewed. Present on Admission?: Yes Admission and Anticipated Discharge Date Admission Date: April 01, 2020 Subjective Still with pain right groin, worse if moving around/ walking. Using IV morphine. Overall, right groin is better. Just starting bactrim today. Culture grew MRSA. Review of Systems Review of Systems: All systems reviewed & are unremarkable except as noted in HPI & below Physical Exam Constitutional: WD/WN, vitals as above Skin: right groin with improved cellulitis, medial small pustule resolved, incision site still draining pus like material. Still with erythema but less than prior, induration persists. Neurologic: moves all extremities; no focal motor deficits Psychiatric: A+Ox3, euthymic affect Results & Data ([facility]) Vital Signs (Past 12 Hours) Vital Signs Temp Pulse Resp BP Pulse Ox 04/03/20 07:55 36.9 C 76 18 107/72 99 04/02/20 23:41 37.1 C 77 16 114/67 97
[2020-04-03] MEDS ORDERED: VANCOMYCIN HCL 1,250 MG in SODIUM CHLORIDE 0.9% 250 ML IV ONE (10:30)
[2020-04-03] MEDS ORDERED: bisacodyL 5 MG TABEC PO ONE (14:45)
--- NOTE | 2020-04-03 17:12 | Hospitalist Progress Note ---
Date of Service April 03, 2020 Assessment & Plan (1) Abscess of groin, right: (2) Cellulitis of groin, right: This is a 24yo M with PMH of Charcot-Elizabeth disease, pruritic interigo who presents with right groin abscess x 2 days. Failed outpatient management with bactrim CT abd/pelvis with subcutaneous edema and skin thickening of the lower right anterior pelvic wall extending into the right inguinal tissues suggests acute cellulitis. Additionally, there is a small multiloculated curvilinear fluid collection suggestive of abscess, largest pocket measuring up to 2.9 x 1.0 cm S/p I&D day #[address] Apple. Culture from the abscess groin area positive for staphylococcus species- MRSA IV Rocephin was discontinued Vanco IVx1 given today, then transition to Bactrim DS Continue daily wound care Continue pain control OK from surgery standpoint to discharge home Follow up with surgery Dr. Apple (3) Vsqdzvh-Neqid-Smayy disease: Chronic issues include weakness and neurogenic urinary incontinence. Continue oxybutynin, flexeril PRN Constipation Will continue laxative and stools softner prn DVT Ppx: Jose narayanan, early ambulation Code status: FULL Dispo: Discharge home today Admission and Anticipated Discharge Date Admission Date: April 01, 2020 Subjective Pt was seen and examined Sitting in bed with no distress Pt said that pain from the incision site improves He said that he did not sleep well last night because of too much traffic in his room He would like to go home today Denies any chest pain, palpitation, dizziness, fever and SOB Physical Exam Physical Exam: General- No acute distress Head- atraumatic Eyes- PERRL, EOMI, ENT- oropharynx clear Neck- supple, no JVD Lungs- clear to auscultation Heart- regular rhythm; no murmur Abdomen- normal bowel sounds, soft, nontender Extremities- no calf tenderness Neuro- alert, oriented x 3; PERRL, EOMI; no facial palsy; no dysarthria Skin- warm & dry, right groin area incision with drainage on the dressing, tenderness and erythema improves significantly Results & Data Results & Data ([facility]) Vital Signs (Past 12 Hours) Vital Signs Temp Pulse Resp BP Pulse Ox 04/03/20 15:34 36.8 C 81 19 108/75 91 04/03/20 07:55 36.9 C 76 18 107/72 99
[2020-04-03] MEDS ORDERED: SULFAMETHOXAZOLE/TRIMETHOPRIM DS 800/160MG TAB PO SCH (21:00)
--- NOTE | 2020-04-05 11:35 | Discharge Summary ---
Date of Service April 03, 2020 Admission HPI Per Admitting Provider This is a 24yo M with PMH of Charcot-Elizabeth disease, pruritic interigo who presents with right groin abscess x 2 days. Area of R lower abdomen into groin is painful to touch and red with purulent drainage. Was seen at [facility] urgent care 2 days ago and prescribed Bactrim without improvement. Was seen at [facility] today for further evaluation since pain worsened and is making walking around difficult. Describes pain as sharp, constant and worse with movement, extending from RLQ down to R testicle. Temp at office is 37.4 C. Endorses chills. Denies lightheadedness, visual changes, chest pain, palpitations, nausea, vomiting, dysuria, diarrhea or constipation. Has Charcot- Elizabeth disease and struggles with intermittent weakness and neurogenic urinary incontinence. Admission Exam Per Admitting Provider General Appearance: vitals as above, sitting up in bed, pleasant, pain with movement Head: normocephalic, atraumatic Eyes: normal inspection, PERRL, conjunctivae normal, anicteric sclerae ENT: external ear and nose normal, oropharynx normal Neck: normal visual inspection, trachea midline, no thyromegaly Respiratory: normal respiratory effort, lungs clear to auscultation, no wheeze, rales, rhonchi. No accessory muscle use Cardiovascular: regular rate, rhythm, no murmur, normal peripheral pulses, no BLE edema. Vessels: no JVD Chest: normal inspection of chest Abdomen/GI: normal bowel sounds, soft, nontender, no hepatosplenomegaly Extremities/Musculoskeletal: no cyanosis or clubbing, extremities motor strength 5/5 Neurologic: PERRL, EOMI, accommodation nl, no face palsy, no dysarthria, CN's II-XI intact bilaterally and moves all extremities Psychiatric: A+Ox3, euthymic affect Skin: normal color, warm/dry + 2x3cm R groin area s/p I&D with packing in place with erythema and edema extending from RUQ to groin and R scrotum. Warmth and TTP Principal Diagnosis Abscess of groin, right: Cellulitis of groin, right: Vozvqid-Apmhp-Mqgbd disease: Discharge Exam General- No acute distress Head- atraumatic Eyes- PERRL, EOMI, ENT- oropharynx clear Neck- supple, no JVD Lungs- clear to auscultation Heart- regular rhythm; no murmur Abdomen- normal bowel sounds, soft, nontender Extremities- no calf tenderness Neuro- alert, oriented x 3; PERRL, EOMI; no facial palsy; no dysarthria Skin- warm & dry, right groin area incision with drainage on the dressing, tenderness and erythema improves significantly Discharge Data Allergies Allergy/AdvReac Type Severity Reaction Status Date / Time peanut Allergy Unknown Peanut Verified 04/02/20 15:02 containing drug products - unknown bee venom protein (honey bee) Allergy Unknown Verified 04/01/20 11:17 pollen extracts Allergy Unknown Verified 04/01/20 11:17 Consultations 04/01/20 14:56 Consult General Surgery Stat 04/01/20 16:23 ED Decision to Admit Stat 04/01/20 19:20 Consult General Surgery Routine Ordered Studies 04/01/20 11:33 CT abd pelvis IV con only Stat ABDOMEN AND PELVIS CT WITH IV CONTRAST CT DOSE: 250.35 mGy.cm HISTORY: Acute infection of the right leg and inguinal tissues. right groin erythema, induration, decreased ROM TECHNIQUE: Multiaxial CT images of the abdomen and pelvis were performed following the IV administration of 94 cc of Optiray 320, A dose lowering technique was utilized adhering to the principles of ALARA. COMPARISON STUDY: CT abdomen and pelvis 03/06/2020 FINDINGS: Clear lung bases. No pneumatosis or pneumoperitoneum. The imaged inferior cardiac chambers are unremarkable. Pectus excavatum. Spleen, pancreas, adrenal glands, gallbladder and liver are unremarkable. There is patency of the hepatic and portal veins. Kidneys and ureters are unremarkable. Mild nonspecific urinary bladder wall thickening. The prostate is mildly prominent in size. Aorta and IVC are within normal limits. No bowel obstruction or bowel wall thickening. Mild fecal retention. Scattered small bowel air-fluid levels, likely physiologic. The appendix is noninflamed. There is moderate edema of the anterior right pelvic wall extending into the right inguinal tissues. There is associated skin thickening and enhancement. Multiloculated fluid collection of the anterior abdominal wall superficial to the anterior inferior iliac spine is noted with the more superior portion of the collection measuring 2.9 x 1.0 cm in the lower portion of the collection measuring 2.4 x 0.6 cm demonstrating peripheral enhancement. Prominent right inguinal chain lymph nodes measure up to 8 mm. Bones appear intact. IMPRESSION: 1. Subcutaneous edema and skin thickening of the lower right anterior pelvic wall extending into the right inguinal tissues suggests acute cellulitis. Additionally, there is a small multiloculated curvilinear fluid collection suggestive of abscess, largest pocket measuring up to 2.9 x 1.0 cm. 2. Reactive right inguinal chain adenopathy. 3. No acute intra-abdominal or intrapelvic abnormality. 4. Normal appendix. ACT 112: Negative or not required by law. The above report was generated using voice recognition software. It may contain grammatical, syntax or spelling errors. Electronically signed by: Bal Ziegler M.D. 04/01/2020 1:55 PM Dictated: 04/01/201338 Transcribed: 04/01/201338 Hospital Course (1) Abscess of groin, right: (2) Cellulitis of groin, right: This is a 24yo M with PMH of Charcot-Elizabeth disease, pruritic interigo who presents with right groin abscess x 2 days. Failed outpatient management with bactrim CT abd/pelvis with subcutaneous edema and skin thickening of the lower right anterior pelvic wall extending into the right inguinal tissues suggests acute cellulitis. Additionally, there is a small multiloculated curvilinear fluid collection suggestive of abscess, largest pocket measuring up to 2.9 x 1.0 cm S/p I&D day #[address] Apple. Culture from the abscess groin area positive for staphylococcus species- MRSA IV Rocephin was discontinued Vanco IVx1 given today, then transition to Bactrim DS Continue daily wound care Continue pain control OK from surgery standpoint to discharge home Follow up with surgery Dr. 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 Continue oxybutynin, flexeril PRN Constipation Will continue laxative and stools softner prn DVT Ppx: Jose hose, early ambulation Code status: FULL Dispo: Discharge home today Total Time Total Time Spent Total Time Spent (In Minutes): 35 minutes Total Time Includes: Examination of the Patient, Discharge Planning, Medication Reconciliation, Communication With Other Providers and Other Discharge Plan Discharge Items Patient Disposition: Home - Self-Care Reason For Visit: GROIN CELLULITIS WITH ABSCESS S/O I&D Discharge Diagnosis: Abscess of groin, right: Cellulitis of groin, right: Sdbywsa-Igjkj-Vqskc disease: Activity: Resume your previous activity Non-emergency contact: Primary Care Provider Call non-emergency contact if: you have any medication questions, you have a fever, your temperature is above 101, your wound has increased redness, your wound has increased drainage and your wound pain has increased Follow-up/Referrals: Everardo Lemons MD [Primary Care Provider] - Diet: Regular Addtl Attending Provider Instructions: Follow up with your primary care provider Dr. Lemons on 04/06 @ 8:20 AM Follow up with surgery Dr. Apple (Please call to schedule for the appointment) Do not drive or operate any machine while taking Tramadol Complete the course of the antibiotic with Bactrim DS (Keep yourself hydrate while on Bactrim) Please hold next dose of tramadol if you become drowsy or lethargy No heavy lifting over 10 pounds until clear by your provider or surgeon No strenuous activity until cleared by surgeon No submerging incisions underwater for 2 weeks (no swimming, bathing, hot tubs) but you may shower and gently clean the incisions with soap and water and pat dry. Walking and light activities encouraged daily to prevent blood clots from forming You may take extra strength Tylenol or ibuprofen as needed for mild pain Recommend taking stool softener daily while taking pain medication. Follow-up in surgical office in 1-2 weeks. Pending Studies at Discharge: No Stand-Alone Forms: My [employer] book, Opioid Pain Management, Work/School Release (Inpt), Smoking Cessation Medications and DC Order Prescriptions: New polyethylene glycol 3350 [Miralax] 17 gram Powder In Packet 17 g PO DAILY PRN (Reason: constipation) Qty: 30 RF: 0 Continued cyclobenzaprine 10 mg Tablet 10 mg PO TID PRN (Reason: muscle spasms) RF: 0 oxybutynin chloride 15 mg tablet extended release 24hr 10 mg PO DAILY RF: 0 nystatin [Nystop] 100,000 unit/gram powder 1 applic TOPICAL BID RF: 0 albuterol sulfate 90 mcg/actuation HFA aerosol inhaler 2 puff INHALATION QID PRN (Reason: Shortness Of Breath Or Wheezing) RF: 0 Ensure High Protein Liquid 1 ea PO TID RF: 0 cholecalciferol (vitamin D3) 1,250 mcg (50,000 unit) Capsule 1,250 mcg PO WK RF: 0 sulfamethoxazole-trimethoprim 800-160 mg tablet 1 tab PO BID 10 Days Qty: 20 RF: 0 tramadol [Ultram] 50 mg tablet 50 mg PO Q6 PRN (Reason: Pain) Qty: 20 RF: 0 Discharge Orders: Discharge Order (Routine); Ordered 04/03/20 Ordered By: Amarilys Deshpande Admission Data Admit Date/Time: 04/01/20 16:31 Attending Provider: Amarilys Deshpande Admit Provider: Amarilys Deshpande Primary Care Provider: Everardo Lemnos Other Providers: Ana Paula Apple ; Amarilys Deshpande Other Interventions: Discharge Summary Assessment (RN) Last Done: 04/03/20 17:40
[2020-04-07] MEDS ORDERED: ERGOCALCIFEROL 50,000 UNITS CAP PO SCH (09:00)
== END 2020-04-03 18:08 | disposition home or self-care (01) | DRG 603 ==
LOC: ED 10:40 → 3N 16:31 → INTOOBSV 16:31 → OBSVTOIN 16:31 → 3N 17:18

== ENCOUNTER 2020-08-01 21:24 | Inpatient (IN) ==
[2020-08-01] MEDS ORDERED: KETOROLAC TROMETHAMINE 15 MG/ML VIAL IV STA (21:38)
[2020-08-01] MEDS ORDERED: ONDANSETRON INJ 2 MG/ML 2 ML VIAL IV STA (21:38)
[2020-08-01] MEDS ORDERED: SODIUM CHLORIDE 0.9% 1000ML 1,000 ML IV SCH (21:45)
--- NOTE | 2020-08-01 22:11 | Emergency Department Note ---
History of Present Illness General Chief complaint: Hematuria Stated complaint: Back pain, blood in urine Time Seen by Provider: 08/01/20 21:30 History of Present Illness Maximum Pain Intensity: 0 This 25-year-old who self caths presents to the ER complaining of urinary problems and left flank pain with nausea and feeling chilled Location: Left flank and bladder Quality: Painful Severity: Moderate Duration: Past few days Timing: Started a few days ago Context: Pain got worse and patient came in Modifying factors: better with nothing; worse with activity Patient states he is concerned he has a bladder infection. No history of kidney stones. Patient feels nauseated and chilled. He has received 1 Covid vaccine of the Qonf. He has had Covid back in March. Patient denies chest pain, dyspnea, cough, congestion, loss of taste or smell. Home Medications Medication Instructions Recorded Confirmed Type cyclobenzaprine 10 mg PO TID PRN 07/17/19 08/01/20 History Ensure High Protein 1 ea PO TID 03/06/20 08/01/20 History albuterol sulfate 2 puff INHALATION QID PRN 03/06/20 08/01/20 History nystatin [Nystop] 1 applic TOPICAL BID 03/06/20 08/01/20 History oxybutynin chloride 15 mg PO DAILY 03/06/20 08/01/20 History cholecalciferol (vitamin D3) 1,250 mcg PO WK 04/01/20 08/01/20 History lorazepam 0.5 mg PO Q8H PRN 08/01/20 08/01/20 History polyethylene glycol 3350 [Miralax] 17 g PO DAILY PRN 08/01/20 08/01/20 History sertraline 100 mg PO DAILY 08/01/20 08/01/20 History tramadol [Ultram] 50 mg PO Q6H PRN 08/01/20 08/01/20 History trazodone 150 mg PO HS 08/01/20 08/01/20 History Allergies Allergy/AdvReac Type Severity Reaction Status Date / Time bee venom protein (honey bee) Allergy Unknown Difficulty Verified 08/01/20 22:38 Breathing peanut Allergy Unknown Skin Verified 08/01/20 22:38 reaction pollen extracts Allergy Unknown Unknown Verified 08/01/20 22:38 Past Med/Surg History Medical History (Updated 08/02/20 @ 00:14 by Ida Zheng PA-C) Abscess of groin, right Cellulitis of groin, right Zqllrad-Mxnyd-Otswc disease Glaucoma Surgical History No pertinent past surgical history Family History Other No known problems Social History Smoking Status: Current every day smoker Tobacco Type: Cigarettes Second Hand Exposure: No; Hx Alcohol Use: Yes Alcohol type: beer, wine and hard liquor Hx Substance Use: Yes (medical marijuana card) Last Used Substance: Hours (ago) Last Used Substance Other:: Daily Preferred Language: Guyanese 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 Beliefs That Will Affect Care: None marital status: single Current Living Situation: Family current occupational status: employed Feels Safe at Home: Yes Assistive Devices: Glasses and Walker Review of Systems A total of 10 systems reviewed and were otherwise negative Physical Exam Vital Signs Vital Signs - 24 hr 08/01/20 21:26 08/01/20 21:49 08/01/20 22:00 Temperature 36.4 C L Temperature Source Oral Pulse Rate 111 H 111 H 68 Pulse Rate from SpO2 Sensor 68 Pulse Rhythm Regular Respiratory Rate 18 18 17 Respiratory Effort / Characteristics Non-Labored Respiratory Depth Normal Blood Pressure 129/91 123/85 Blood Pressure Mean 103 97 Pulse Oximetry 97 97 97 Oxygen Delivery Method Room Air Room Air Room Air Sepsis Recent Fever Within 48 Hours No Sepsis New/Unexplained Change in Mental Status No Sepsis Action Taken by Nursing No Action Required 08/01/20 23:19 08/01/20 23:30 Temperature Temperature Source Pulse Rate 77 60 Pulse Rate from SpO2 Sensor 77 61 Pulse Rhythm Respiratory Rate 16 17 Respiratory Effort / Characteristics Respiratory Depth Blood Pressure 124/77 110/77 Blood Pressure Mean 92 88 Pulse Oximetry 100 98 Oxygen Delivery Method Room Air Room Air Sepsis Recent Fever Within 48 Hours Sepsis New/Unexplained Change in Mental Status Sepsis Action Taken by Nursing VITALS: Vitals are noted on the nurse's note and reviewed by myself. Vital signs stable. GENERAL: Pleasant male, in no acute distress, nondiaphoretic, well-developed well-nourished. SKIN: Capillary reflex less than 2 seconds. HEENT: Normocephalic. PERRLA. EOMI. Nares patent. Mucous membranes moist. Neck is supple without nuchal rigidity. HEART: Mildly tachycardic ar rate and rhythm LUNGS: Clear to auscultation bilaterally without wheezes, rales or rhonchi. No retractions or accessory muscle use. ABDOMEN: Positive bowel sounds x 4. Normal tympanic percussion. Soft, tender to palpation suprapubic region, without masses or organomegaly. Singh sign negative. No guarding or rebound tenderness. Left CVA tenderness MUSCULOSKELETAL: No gross musculoskeletal defects. NEURO: Patient was alert and oriented to person place and time. No focal neurological deficits. Course Administered Medications Discontinued Medications Diphenhydramine HCl (Diphenhydramine 50 Mg/Ml Vial) 12.5 mg IV NOW STA Stop: 08/01/20 23:03 Last Admin: 08/01/20 23:22 Dose: 12.5 mg Documented by: [id number] Sodium Chloride (Nss 1000ml) 1,000 mls @ 999 mls/hr IV .Q1H1M YAKOV Stop: 08/01/20 22:45 Last Infusion: 08/01/20 23:01 Dose: 0 mls/hr Documented by: [id number] Admin: 08/01/20 22:00 Dose: 999 mls/hr Documented by: [id number] Piperacillin Sod/Tazobactam Sod (Zosyn) 4.5 gm in 120 mls @ 240 mls/hr IV NOW ONE Stop: 08/01/20 22:44 Last Infusion: 08/01/20 23:55 Dose: 0 mls/hr Documented by: [id number] Admin: 08/01/20 23:21 Dose: 240 mls/hr Documented by: [id number] Sodium Chloride (Nss 1000ml) 1,000 mls @ 999 mls/hr IV .Q1H1M ONE Stop: 08/01/20 23:49 Last Admin: 08/01/20 23:40 Dose: 999 mls/hr Documented by: [id number] Ioversol (Ioversol 100ml) 93 ml IV ONCE ONE Stop: 08/01/20 23:12 Last Admin: 08/01/20 23:12 Dose: 93 ml Documented by: [id number] Ketorolac Tromethamine (Ketorolac Tromethamine 15 Mg/Ml Vial) 10 mg IV NOW STA Stop: 08/01/20 21:39 Last Admin: 08/01/20 22:00 Dose: 10 mg Documented by: [id number] Metoclopramide HCl (Metoclopramide Hcl Inj 5 Mg/Ml 2 Ml Vial) 10 mg IV NOW STA Stop: 08/01/20 23:03 Last Admin: 08/01/20 23:22 Dose: 10 mg Documented by: [id number] Ondansetron HCl (Ondansetron Inj 2 Mg/Ml 2 Ml Vial) 4 mg IV NOW STA Stop: 08/01/20 21:39 Last Admin: 08/01/20 22:00 Dose: 4 mg Documented by: [id number] Medical Decision Making Medical Records Attestation: I reviewed the patient's medical records. Home Medications Current Medication List: was personally reviewed by me Laboratory Data Attestation: I reviewed the patient's lab results. Result diagrams: 08/01/20 21:58 08/01/20 21:58 Lab Results 08/01/20 08/01/20 08/01/20 Range/Units 21:58 21:58 21:58 WBC 8.76 (4.8-10.8) K/uL RBC 5.46 (4.7-6.1) M/uL Hgb 16.1 (14.0-18.0) g/dL Hct 44.7 (42-52) % MCV 81.9 (80-100) fL MCH 29.5 (25-34) pg MCHC 36.0 (32-36) g/dL RDW Std Deviation 39.5 (36.4-46.3) fL RDW Coeff of Ashok 13.2 (11.5-14.5) % Plt Count 202 (130-400) K/uL MPV 9.9 (7.4-10.4) fL Immature Gran % (Auto) 0.1 % Neut % (Auto) 51.9 % Lymph % (Auto) 37.2 % Maverick % (Auto) 6.2 % Eos % (Auto) 4.3 % Baso % (Auto) 0.3 % Neut # (Auto) 4.54 (1.4-6.5) K/uL Lymph # (Auto) 3.26 (1.2-3.4) K/uL Maverick # (Auto) 0.54 (0.11-0.59) K/uL Eos # (Auto) 0.38 (0-0.5) K/uL Baso # (Auto) 0.03 (0-0.2) K/uL Immature Gran # (Auto) 0.01 (0.00-0.02) K/uL PT 10.7 (9.0-12.0) Seconds INR 1.1 (0.9-1.1) APTT 25.8 (21.0-31.0) Seconds PTT Ratio 1.0 Sodium 140 (136-145) mmol/L Potassium 3.7 (3.5-5.1) mmol/L Chloride 107 (98-107) mmol/L Carbon Dioxide 25 (21-32) mmol/L Anion Gap 8.0 (3-11) BUN 19 H (7-18) mg/dl Creatinine 0.91 (0.6-1.4) mg/dl Est Cr Clr Drug Dosing 97.9 ml/min Est GFR ( Amer) 135.3 Est GFR (Non-Af Amer) 116.7 BUN/Creatinine Ratio 20.9 H (10-20) Glucose 127 H (70-99) mg/dl Lactate (0.4-2.0) mmol/L Calcium 9.6 (8.5-10.1) mg/dl Magnesium 2.1 (1.8-2.4) mg/dl Total Bilirubin 0.4 (0.2-1) mg/dl AST 20 (15-37) U/L ALT 28 (12-78) U/L Alkaline Phosphatase 65 (45-117) U/L Total Protein 7.7 (6.4-8.2) gm/dl Albumin 4.0 (3.4-5.0) gm/dl Globulin 3.7 (2.5-4.0) gm/dl Albumin/Globulin Ratio 1.1 (0.9-2) Specimen Hemolysis Urine Color Urine Appearance (Clear) Urine pH (4.5-7.5) Ur Specific [place] (1.000-1.030) Urine Protein (Negative) Urine Glucose (UA) (Negative) Urine Ketones (Negative) Urine Blood (Negative) Urine Nitrite (Negative) Urine Bilirubin (Negative) Urine Urobilinogen (Negative) Ur Leukocyte Esterase (Negative) Urine WBC (Auto) (0-5) /hpf Urine RBC (Auto) (0-4) /hpf U Hyaline Cast (Auto) (0-5) /lpf U Epithel Cells (Auto) (0-5) /lpf Urine Bacteria (Auto) (Negative) 08/01/20 08/01/20 Range/Units 22:12 22:54 WBC (4.8-10.8) K/uL RBC (4.7-6.1) M/uL Hgb (14.0-18.0) g/dL Hct (42-52) % MCV (80-100) fL MCH (25-34) pg MCHC (32-36) g/dL RDW Std Deviation (36.4-46.3) fL RDW Coeff of Ashok (11.5-14.5) % Plt Count (130-400) K/uL MPV (7.4-10.4) fL Immature Gran % (Auto) % Neut % (Auto) % Lymph % (Auto) % Maverick % (Auto) % Eos % (Auto) % Baso % (Auto) % Neut # (Auto) (1.4-6.5) K/uL Lymph # (Auto) (1.2-3.4) K/uL Maverick # (Auto) (0.11-0.59) K/uL Eos # (Auto) (0-0.5) K/uL Baso # (Auto) (0-0.2) K/uL Immature Gran # (Auto) (0.00-0.02) K/uL PT (9.0-12.0) Seconds INR (0.9-1.1) APTT (21.0-31.0) Seconds PTT Ratio Sodium (136-145) mmol/L Potassium (3.5-5.1) mmol/L Chloride (98-107) mmol/L Carbon Dioxide (21-32) mmol/L Anion Gap (3-11) BUN (7-18) mg/dl Creatinine (0.6-1.4) mg/dl Est Cr Clr Drug Dosing ml/min Est GFR ( Amer) Est GFR (Non-Af Amer) BUN/Creatinine Ratio (10-20) Glucose (70-99) mg/dl Lactate 2.2 H* (0.4-2.0) mmol/L Calcium (8.5-10.1) mg/dl Magnesium (1.8-2.4) mg/dl Total Bilirubin (0.2-1) mg/dl AST (15-37) U/L ALT (12-78) U/L Alkaline Phosphatase (45-117) U/L Total Protein (6.4-8.2) gm/dl Albumin (3.4-5.0) gm/dl Globulin (2.5-4.0) gm/dl Albumin/Globulin Ratio (0.9-2) Specimen Hemolysis Urine Color Yellow Urine Appearance Clear (Clear) Urine pH 7.0 (4.5-7.5) Ur Specific [place] 1.010 (1.000-1.030) Urine Protein Negative (Negative) Urine Glucose (UA) Negative (Negative) Urine Ketones Negative (Negative) Urine Blood 1+ H (Negative) Urine Nitrite Negative (Negative) Urine Bilirubin Negative (Negative) Urine Urobilinogen Negative (Negative) Ur Leukocyte Esterase Trace H (Negative) Urine WBC (Auto) 1-5 (0-5) /hpf Urine RBC (Auto) 5-10 H (0-4) /hpf U Hyaline Cast (Auto) 0 (0-5) /lpf U Epithel Cells (Auto) 5-10 H (0-5) /lpf Urine Bacteria (Auto) Negative (Negative) Imaging Data Attestation: I personally reviewed and interpreted this imaging study as follows: MDM Narrative Prior records/ancillary studies reviewed. Triage Nursing notes reviewed. The patient's history was concerning for nausea, chills and urinary symptoms Differential diagnosis: Etiologies such as pyelonephritis, viral syndrome, otitis, pharyngitis, pneumonia, influenza, meningitis, urinary tract infection, sepsis, bacteremia, as well as others were entertained. Physical examination: As above ER treatment provided: An order was placed for continuous cardiac monitoring. The monitor shows a rate of 60-1 20 with a sinus rhythm. IV fluids, Toradol, Zofran On reassessment the patient felt better. Diagnostics interpreted by me: ECG: Normal sinus, right axis deviation, incomplete right bundle branch block. Impression normal sinus rhythm with right axis deviation interpreted by myself EKG ordered for weakness I think arrhythmia is unlikely. EKG shows normal sinus rhythm with no interval abnormalities such as QT prolongation or WPW. There are no findings to suggest Brugada syndrome. Cardiac monitoring in the emergency department reveals no tachycardic or bradycardic dysrhythmia. Hypertrophic cardiomyopathy was considered but there are no clear historical elements pointing toward this. EKG is not suggestive. The QRS voltage is not extremely large and there are no suggestive Q waves. The labs revealed urine concerning for possible infection sent for culture. Elevated lactic. Blood cultures pending [facility] [address] [place] [address] / Director: Amarjit Lee M.D. Clinical Laboratory Report Name: SEA ANNE Acct: [id number] Status: [facility] ER : 1995 [facility] Date: 03/06/20 Age: 25 Sex: M Dis Date: Loc: Emergency Department Spec: [id number] Collected: 03/06/20 Received: 03/06/[address]: Serjio Stone MD Source: Urine,Straight Cath OV Order: Ordered: Urine Culture Procedure Result Verified Site Urine Culture Final 03/08/20-1011 Organism 1 Proteus mirabilis [place] Count >100,000 CFU/ml Sens Sensitivities to Follow P mirabili RX M.I.C. --- --------- Amikacin S <=16 Ampicillin S <=8 Amp/Sul S <=8/4 Cefazolin S <=8 Cefepime S <=4 Cefotaxime S <=2 Cefoxitin S <=8 Ceftriaxone S <=1 Cefuroxime S <=4 Ciprofloxacin S <=1 Ertapenem S <=1 Gentamicin S <=4 Levofloxacin S <=2 Tobramycin S <=4 Trimeth/Sulfa R >2/38 Pip/Tazo S <=16 S = SENSITIVE I = INTERMEDIATE R = RESISTANT Imaging studies: Chest x-ray with no acute consolidation, pneumothorax or free air per my interpretation CT ABDOMEN & PELVIS With Contrast: Kidneys are unremarkable. No radiodense gallstones or pancreatitis. No colitis. Appendix not identified. Nonobstructive bowel gas pattern. Radiologist: Ovi Rosario M.D Consultation: A consultation was placed with Dr Johnson. The case was discussed and diagnostics were reviewed. The patient was evaluated in the ER for further treatment. This appears to be consistent with elevated lactic and possible UTI. Prior urine culture was reviewed. Patient self caths. He feels like he has a urine infection. He has left flank pain. He was given Zosyn. Medicine was consulted. He will be evaluated for possible admission. By the evaluation outlined above emergent etiologies such as otitis, pharyngitis, pneumonia, meningitis, bacteremia, as well as others were deemed relatively unlikely. The pt informed about the findings as listed above. All questions were answered and pleased with the treatment. The chart was completed utilizing [employer] Speech voice recognition software. Grammatical errors, random word insertions, pronoun errors, and incomplete sentences are an occassional consequence of this system due to software limitations, ambient noise, and hardware issues. Any formal questions or concerns about the content, text, or information contained within the body of this dictation should be directly addressed to the physician teaching assistant for clarification. Impression & Plan Urinary tract infection, Acute flank pain Discharge Plan Visit Data Chief Complaint: Hematuria Stated Complaint: Back pain, blood in urine ED Provider: Taurus Cruz ED Midlevel Provider: Ida Zheng Discharge Problem: Urinary tract infection, Acute flank pain Patient Disposition: Being Evaluated by Hospitalist Condition: Good Forms Stand Alone Forms: My [employer] Prescriptions Prescriptions: No Action cyclobenzaprine 10 mg Tablet 10 mg PO TID PRN (Reason: Muscle Spasm) RF: 0 oxybutynin chloride 15 mg tablet extended release 24hr 15 mg PO DAILY RF: 0 nystatin [Nystop] 100,000 unit/gram powder 1 applic TOPICAL BID RF: 0 albuterol sulfate 90 mcg/actuation HFA aerosol inhaler 2 puff INHALATION QID PRN (Reason: Shortness Of Breath Or Wheezing) RF: 0 Ensure High Protein Liquid 1 ea PO TID RF: 0 cholecalciferol (vitamin D3) 1,250 mcg (50,000 unit) Capsule 1,250 mcg PO WK RF: 0 sertraline 100 mg tablet 100 mg PO DAILY RF: 0 lorazepam 0.5 mg tablet 0.5 mg PO Q8H PRN (Reason: Anxiety) RF: 0 trazodone 150 mg tablet 150 mg PO HS RF: 0 polyethylene glycol 3350 [Miralax] 17 gram powder in packet 17 g PO DAILY PRN (Reason: Constipation) RF: 0 tramadol [Ultram] 50 mg tablet 50 mg PO Q6H PRN (Reason: Pain, Severe) RF: 0 Referrals Referrals: Everardo Lemons MD [Primary Care Provider] - Discharge Problem: Urinary tract infection Qualifiers: Urinary tract infection type: site unspecified Hematuria presence: with hematuria Qualified Code(s): N39.0 - Urinary tract infection, site not specified
[2020-08-01 22:15] LABS: Basophils # (auto) 0.03 K/uL (0-0.2); Basophils % (auto) 0.3 %; Eosinophils # (auto) 0.38 K/uL (0-0.5); Eosinophils % (auto) 4.3 %; Hematocrit (blood only) 44.7 % (42-52); Hemoglobin 16.1 g/dL (14.0-18.0); Immature Granulocytes # (auto) 0.01 K/uL (0.00-0.02); Immature Granulocytes % (auto) 0.1 %; Lymphocytes # (auto) 3.26 K/uL (1.2-3.4); Lymphocytes % (auto) 37.2 %; Mean Corpuscular Hemoglobin 29.5 pg (25-34); Mean Corpuscular Volume 81.9 fL (80-100); Mean Platelet Volume 9.9 fL (7.4-10.4); Monocytes # (auto) 0.54 K/uL (0.11-0.59); Monocytes % (auto) 6.2 %; Neutrophils # (auto) 4.54 K/uL (1.4-6.5); Neutrophils % (auto) 51.9 %; Platelet Count 202 K/uL (130-400); RDW Coefficient of Variation 13.2 % (11.5-14.5); RDW Standard Deviation 39.5 fL (36.4-46.3); Red Blood Count 5.46 M/uL (4.7-6.1); White Blood Count 8.76 K/uL (4.8-10.8)
[2020-08-01] MEDS ORDERED: PIPERACILLIN/TAZOBACTAM 4.5 GM/120 ML BAG IV ONE (22:15)
[2020-08-01] MEDS ORDERED: PIPERACILL/TAZOBAC CONSULT ACTIVE PRN (22:15)
[2020-08-01 22:22] LABS: INR 1.1 (0.9-1.1); Partial Thromboplastin Time 25.8 Seconds (21.0-31.0); Prothrombin Time 10.7 Seconds (9.0-12.0)
[2020-08-01 22:34] LABS: Albumin Globulin Ratio 1.1 (0.9-2); BUN Creatinine Ratio 20.9 (10-20); Bilirubin,Total 0.4 mg/dl (0.2-1); Calcium 9.6 mg/dl (8.5-10.1); Creatinine Clr Calc Pharmacy 97.9 ml/min; Est GFR (African American) 135.3; Est GFR (Non-African American) 116.7; Globulin 3.7 gm/dl (2.5-4.0); Magnesium 2.1 mg/dl (1.8-2.4); Potassium 3.7 mmol/L (3.5-5.1); Total Protein 7.7 gm/dl (6.4-8.2)
[2020-08-01] MEDS ORDERED: SODIUM CHLORIDE 0.9% 1000ML 1,000 ML IV ONE (22:49)
[2020-08-01] MEDS ORDERED: diphenhydrAMINE 50 MG/ML VIAL IV STA (23:02)
[2020-08-01] MEDS ORDERED: METOCLOPRAMIDE HCL INJ 5 MG/ML 2 ML VIAL IV STA (23:02)
[2020-08-01] MEDS ORDERED: OPTIRAY 320 100ml IV ONE (23:11)
[2020-08-01 23:18] LABS: Appearance Urine Clear (Clear); Bacteria Urine Automated Negative (Negative); Bilirubin Urine Negative (Negative); Blood Urine 1+ (Negative); Cast Urine Automated 0 /lpf (0-5); Color Urine Yellow; Glucose Urine UA Negative (Negative); Ketones Urine Negative (Negative); Leukocyte Esterase Urine Trace (Negative); Nitrite Urine Negative (Negative); Protein Urine Negative (Negative); Urobilinogen Urine Negative (Negative)
[2020-08-02] MEDS ORDERED: traZODone HCL 50 MG TAB PO STA (02:16)
--- NOTE | 2020-08-02 02:52 | History and Physical Report ---
DATE OF ADMISSION: 08/02/2020 CHIEF COMPLAINT: Hematuria and back pain. HISTORY OF PRESENT ILLNESS: A 25-year-old male with past medical history significant for Charcot-Elizabeth disease, history of neurogenic urinary incontinence, can pee by himself, but uses straight cath once everyday before going to sleep, history of vitamin deficiencies, pruritic intertrigo, history of tobacco use disorder, history of marijuana use episodic as per records. Comes here because the patient today when he tried to straight cath before going to bed, he noticed blood in the urine and decided to come to ER. He is having back pain since last 1 week and last couple of days is also having some lower abdominal discomfort. He was straight catheterized one more time in the ER, but at that time the hematuria got resolved and he also peed once in the ER, and there was no blood in the urine. Currently resting comfortably and hemodynamically stable. Denies any fever, chills. No nausea, no chest pain, no shortness of breath, no cough, no headache, no blurred visions, no earache, no runny nose, no sore throat. No COVID symptoms. Appetite is okay. No difficulty swallowing. He has some imbalance issues. He has Charcot-Elizabeth disease. Lives with his mom. ALLERGIES: BEE VENOM, PEANUT, POLLEN EXTRACTS. PAST MEDICAL HISTORY: As mentioned above. PAST SURGICAL HISTORY: No past surgical history on file. MEDICATIONS: The patient is on albuterol 2 puffs inhalation q.i.d. p.r.n., vitamin D3 1250 mcg p.o. weekly, cyclobenzaprine 10 mg p.o. t.i.d. p.r.n., Ensure 1 can p.o. t.i.d., lorazepam 0.5 mg p.o. 8 hours p.r.n., nystatin topical b.i.d., oxybutynin 15 mg p.o. daily, MiraLax 17 g p.o. daily p.r.n., sertraline 100 mg p.o. daily, tramadol 50 mg p.o. q. 6 hours p.r.n., trazodone 150 mg p.o. at bedtime. FAMILY HISTORY: No family history on file. SOCIAL HISTORY: Lives with mom, smokes half pack a day for 40 years. As per record, alcohol occasional. Drug use, episodic marijuana. REVIEW OF SYSTEMS: As per HPI. Rest of the review of systems negative. PHYSICAL EXAMINATION: GENERAL: The patient is of moderate build, not in acute distress. VITAL SIGNS: Temperature 36.4, pulse 60, respiratory rate 17, blood pressure 110/77, oxygen 98% on room air. HEENT: Pupils equal, round, and reactive to light. Oral mucosa moist. NECK: No neck masses seen. CARDIOVASCULAR: S1, S2 heard. Regular rate and rhythm, no murmur, no gallop. RESPIRATORY SYSTEM: Normal AP diameter. No accessory muscle use. No wheezing, no crackles. ABDOMEN: Soft, bowel sounds present. Mild abdominal discomfort. Mild guarding present. No rigidity. No distention. CENTRAL NERVOUS SYSTEM: Cranial nerves II-XII grossly intact, nonfocal. EXTREMITIES: No edema, no erythema. LABORATORY DATA: WBC 7.7, hemoglobin 16.1, hematocrit 44.7, platelets 202. PT 10.7, INR 1.1, APTT 25.8. Sodium 140, potassium 3.7, chloride 107, bicarb 25, BUN 19, creatinine 0.9, serum glucose 127. Lactate initially was 2.2, repeat lactate 0.7, calcium 9.6, magnesium 2.1, total bilirubin 0.4, AST 20, ALT 28, alkaline phosphatase 65. Urinalysis, +1 blood, trace leukocyte esterase. SARS-CoV-2 RNA negative. IMAGING DATA: Chest x-ray, no acute findings. CT abdomen and pelvis, preliminary report, no acute findings. EKG: Normal sinus rhythm with sinus arrhythmia at the rate of 90, nonspecific T-wave abnormalities. ASSESSMENT AND PLAN: This is a 25-year-old male who presents with hematuria and back pain. 1. Hematuria: One episode. Back pain is going on for last 1 week. Has some abdominal discomfort for the last 2 days. Initial lactate was 2.2, it got resolved with antibiotics and fluids. UA, leukocyte esterase is slightly positive. He was started empirically on Zosyn which he will continue. CT abdomen and pelvis, preliminary report unremarkable. Will continue with fluids, Zosyn, and consult urology in the a.m. for further recommendations. The patient straight catheterizes once a day before going to sleep when this hematuria happened, but after that it resolved. 2. History of Charcot-Elizabeth disease, neurogenic urinary incontinence: On Ditropan. He straight catheterizes once a day before going to sleep. 3. Depression and anxiety: Continue Zoloft and Ativan p.r.n. 4. Tobacco use disorder, episodes of marijuana use: Needs counseling. 5. Deep venous thrombosis prophylaxis: Sequential compression devices for now. DISPOSITION: Monitor in the medical floor. Expect to discharge home and follow with family doctor. ARMANDO
[2020-08-02] MEDS ORDERED: ACETAMINOPHEN 325 MG TAB PO PRN (03:34)
[2020-08-02] MEDS ORDERED: traMADol HCL 50 MG TABLET PO PRN (03:34)
[2020-08-02] MEDS: SODIUM CHLORIDE 0.9% 1000ML 1,000 ML IV SCH ×3 (03:55→23:31)
[2020-08-02] MEDS: POLYETHYLENE (MIRALAX) 17 GM PACK PO PRN (04:09)
[2020-08-02 06:54] LABS: Basophils # (auto) 0.04 K/uL (0-0.2); Basophils % (auto) 0.5 %; Eosinophils # (auto) 0.48 K/uL (0-0.5); Eosinophils % (auto) 6.1 %; Hemoglobin 14.8 g/dL (14.0-18.0); Immature Granulocytes # (auto) 0.01 K/uL (0.00-0.02); Immature Granulocytes % (auto) 0.1 %; Lymphocytes # (auto) 3.27 K/uL (1.2-3.4); Lymphocytes % (auto) 41.5 %; Mean Corpuscular Hgb Conc 35.2 g/dL (32-36); Mean Corpuscular Volume 82.4 fL (80-100); Mean Platelet Volume 9.8 fL (7.4-10.4); Monocytes # (auto) 0.68 K/uL (0.11-0.59); Monocytes % (auto) 8.6 %; Neutrophils % (auto) 43.2 %; Platelet Count 198 K/uL (130-400); RDW Coefficient of Variation 13.2 % (11.5-14.5); White Blood Count 7.88 K/uL (4.8-10.8)
[2020-08-02 07:23] LABS: BUN Creatinine Ratio 17.7 (10-20); Calcium 8.9 mg/dl (8.5-10.1); Creatinine Clr Calc Pharmacy 110.4 ml/min; Est GFR (African American) 143.2; Est GFR (Non-African American) 123.5; Magnesium 2.3 mg/dl (1.8-2.4); Potassium 4.1 mmol/L (3.5-5.1)
--- NOTE | 2020-08-02 07:24 | XRay Report ---
XR chest 1V portable HISTORY: SEPSIS COMPARISON: Chest 09/08/2019. FINDINGS: No pneumothorax. No pleural effusions. The heart is normal in size. The lungs are clear. De xtroscoliosis of the thoracic spine, unchanged. IMPRESSION: No acute process. ACT 112: Negative or not required by law. Electronically signed by: Benny Camacho M.D. 08/02/2020 7:22 AM
--- NOTE | 2020-08-02 07:31 | CT Scan Report ---
ABDOMEN AND PELVIS CT WITH IV CONTRAST CT DOSE: 230.57 mGy.cm HISTORY: left flank and abd pain, UA retention, ? pyelo TECHNIQUE: Multiaxial CT images of the abdomen and pelvis were performed following the use of intrave nous contrast. A dose lowering technique was utilized adhering to the principles of ALARA. COMPARISON STUDY: Abdomen and pelvis CT 04/01/2020. FINDINGS: The lung bases are clear. No pneumoperitoneum. No pneumatosis. The liver, gallbladder, sple en, pancreas, and adrenal glands are unremarkable. The kidneys enhance normally. No hydronephrosis. N o retroperitoneal lymphadenopathy. Questionable mild bladder wall thickening. No pelvic free fluid. N o bowel wall thickening or obstruction. Moderate well-formed stool within the colon. The visualized a ppendix is unremarkable measuring up to 5 mm in diameter. IMPRESSION: 1. Normal kidneys. No hydronephrosis. 2. No bowel wall thickening or obstruction. 3. Normal appendix. 4. Questionable mild bladder wall thickening which could be due to underdistention. Recommend correla tion with urinalysis. ACT 112: Negative or not required by law. Electronically signed by: Benny Camacho M.D. 08/02/2020 7:29 AM
--- NOTE | 2020-08-02 09:01 | Urology Consultation ---
Date of Consultation August 02, 2020 Assessment & Plan (1) Acute flank pain: (2) Urinary tract infection: (3) Hematuria: 25 year-old male patient, with history of neurogenic bladder and Rzyvvze-Xwlcq-Lyqrn disease, admitted with left flank pain, hematuria, and presumed UTI. -Gross hematuria now resolved, likely in the setting of self-catheterization and infection. -Patient is afebrile. -Labs reviewed - white count and creatinine stable. -CT abd/pelvis without evidence of obstruction or acute abnormalities. -Blood cultures pending. -Urine culture ordered, nursing spoke to lab who will send urine previously collected in ED. -Recommend supportive care and continued antibiotic therapy, await cultures. -Continue PRN bladder scan. If continued straight catheterization required, consider insertion of indwelling weir catheter. -No acute intervention indicated at this time. -Will continue to follow while inpatient. History of Present Illness Reason for Consultation: Hematuria Attending Physician: Tristin Esteban DO History of Present Illness 25-year-old male patient with past medical history significant for Charcot-Elizabeth disease, history of neurogenic urinary incontinence requiring CIC, vitamin deficiency, pruritic intertrigo, and tobacco use, presented to the hospital with complaints of left flank pain, nausea, hematuria after self-catheterization, and concern for UTI. Symptom onset was 2-3 days ago. Urology consulted for hematuria. Patient has followed with urology in the past, followed with Dr. Fermin. Patient reports since March, he has been performing CIC once daily at bedtime. Chart review: Afebrile Wbc 7.88 Hgb 14.8 Creatinine 0.81 Urinalysis trace leukocytes, 5-10 rbc, 1-5 wbc, negative bacteria. No urine culture pending, received Zosyn x1 08/01. Imaging: CT abd/pelvis with IV contrast - IMPRESSION: 1. Normal kidneys. No hydronephrosis. 2. No bowel wall thickening or obstruction. 3. Normal appendix. 4. Questionable mild bladder wall thickening which could be due to underdistention. Recommend correlation with urinalysis. Patient examined at bedside. He is alert, awake, and appears in mild discomfort. Reports continued left-sided flank pain and intermittent nausea. Denies vomiting. Reports the episode of hematuria before presenting to ER was noted after he performed self-catheterization. No episodes of gross hematuria since. States he feels like his bladder is full. Recently bladder scanned for 514 ml. Does report some dysuria, symptoms consistent with his typical UTI symptoms. Notes no frequency/urgency but does have incontinence at times. Currently has bladder pressure and abdominal discomfort. Currently denies fevers or chills. Does note discomfort with CIC, occurring most recently. Is able to spontaneously void throughout the day but notes he feels he does not always empty his bladder fully. He reports he voids best while standing. Overall, left-flank pain and nausea have been persistent. Denies additional urologic concerns today. Allergies Allergy/AdvReac Type Severity Reaction Status Date / Time bee venom protein (honey bee) Allergy Unknown Difficulty Verified 08/01/20 22:38 Breathing peanut Allergy Unknown Skin Verified 08/01/20 22:38 reaction pollen extracts Allergy Unknown Unknown Verified 08/01/20 22:38 Home Medications Medication Instructions Recorded Confirmed Type cyclobenzaprine 10 mg PO TID PRN 07/17/19 08/01/20 History Ensure High Protein 1 ea PO TID 03/06/20 08/01/20 History albuterol sulfate 2 puff INHALATION QID PRN 03/06/20 08/01/20 History nystatin [Nystop] 1 applic TOPICAL BID 03/06/20 08/01/20 History oxybutynin chloride 15 mg PO DAILY 03/06/20 08/01/20 History cholecalciferol (vitamin D3) 1,250 mcg PO WK 04/01/20 08/01/20 History lorazepam 0.5 mg PO Q8H PRN 08/01/20 08/01/20 History polyethylene glycol 3350 [Miralax] 17 g PO DAILY PRN 08/01/20 08/01/20 History sertraline 100 mg PO DAILY 08/01/20 08/01/20 History tramadol [Ultram] 50 mg PO Q6H PRN 08/01/20 08/01/20 History trazodone 150 mg PO HS 08/01/20 08/01/20 History Patient History Medical History (Updated 08/02/20 @ 09:24 by NAYANA Espino) Abscess of groin, right Cellulitis of groin, right Jnucffr-Aflgj-Pwlqt disease Glaucoma Surgical History No pertinent past surgical history Family History Other No known problems Social History Smoking Status: Current every day smoker Tobacco Type: Cigarettes Cigarettes Per Day: 4; Second Hand Exposure: No; Do You Dip or Chew Tobacco: No; Hx Alcohol Use: Yes Alcohol type: beer Hx Substance Use: Yes Last Used Substance: Days (ago) Last Used Substance Other:: Daily Preferred Language: Danish Communication Ability: Effective 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 Required: No Beliefs That Will Affect Care: None marital status: single Current Living Situation: Family current occupational status: employed Feels Safe at Home: Yes Safety Concerns: Feels Safe At This Time Assistive Devices: Glasses Review of Systems Constitutional: as per Subjective / HPI Eyes: no problem reported Ear, Nose, Mouth, Throat: no dizziness Respiratory: no cough and no dyspnea Cardiovascular: no chest pain and no edema Gastrointestinal: as per Subjective / HPI Genitourinary: + as per Subjective / HPI Musculoskeletal: as per Subjective / HPI Neurologic: no dizziness Endocrine: no fatigue Hematologic / Lymphatic: no easy bleeding and no easy bruising Physical Exam Constitutional: well developed, well nourished, + acute distress (Appears to be in mild discomfort) and cooperative; not ill appearing ENMT: Ears: no external ear abnormality Nose: no external nose abnormality Neck: normal visual inspection and trachea midline Respiratory: normal respiratory effort and able to speak in complete sentences; no respiratory distress and no audible wheezes Cardiovascular: Extremities: no calf tenderness and no edema Gastrointestinal (Abdomen): Inspection/Auscultation: abdomen normal to inspection; abdomen not distended Percussion/Palpation: + abdomen tender (Generlized tenderness with palpation) and abdomen soft; no guarding Musculoskeletal: Moves all extremities without difficulty. Skin: No visible rashes, lesions, or wounds noted. Neurologic: moves all extremities and awake Psychiatric: Orientation: alert, oriented x 3 and cooperative Affect: euthy saurabh affect Genitourinary: + CVA tenderness (Left) Results & Data ([facility]) Vital Signs (Past 12 Hours) Vital Signs Temp Pulse Pulse Resp BP BP Pulse Ox 08/02/20 07:05 36.7 C 60 16 103/59 L 96 02/09/21 03:36 37 C 67 16 126/76 94 08/02/20 02:24 82 18 126/83 98 08/02/20 01:09 82 20 131/69 100 08/01/20 23:30 60 17 110/77 98 08/01/20 23:19 77 16 124/77 100 08/01/20 22:00 68 17 123/85 97 08/01/20 21:49 111 H 18 97 08/01/20 21:26 36.4 C L 111 H 18 129/91 97 PG Care Time/CCT Total # of Minutes Spent Total Time Spent with Patient: Total time spent is greater than 50% in coordination of care (as documented) at patient's floor/unit and/or counseling patient: Coding Level of Care Code 07366 Inpt Consult Level 4 Diagnoses Acute flank pain R10.9 Urinary tract infection N39.0; R31.9 Hematuria presence: with hematuria Urinary tract infection type: site unspecified Hematuria R31.9 (1) Urinary tract infection Hematuria presence: with hematuria Urinary tract infection type: site unspecified Qualified Code(s): N39.0 - Urinary tract infection, site not specified; R31.9 - Hematuria, unspecified
[2020-08-02] MEDS ORDERED: PIPERACILLIN/TAZOBACTAM 3.375 GM in DEXTROSE 5% 100 ML IV ONE (09:45)
--- NOTE | 2020-08-02 09:49 | Hospitalist Progress Note ---
Date of Service August 02, 2020 Assessment & Plan (1) Hematuria: (2) Urinary tract infection: (3) Acute flank pain: (4) Glaucoma: ASSESSMENT AND PLAN: This is a 25-year-old male who presents with hematuria and back pain. 1. Urine retention/UTI +- Pyelo c R CVAT and one episode of Hematuria: Possibly Sec to traumatic Self Cath. Back pain is going on for last 1 week. Has some abdominal discomfort for the last 2 days. Initial lactate was 2.2, it got resolved with antibiotics and fluids. UA, leukocyte esterase is slightly positive. He was started empirically on Zosyn which he will continue. CT abdomen and pelvis, preliminary report unremarkable. Will continue with fluids, Zosyn, and Urology is on the case for further recommendations. The patient straight cath once a day before going to sleep when this hematuria happened, but after that it resolved. 2. History of Charcot-Elizabeth disease, neurogenic urinary incontinence: On Ditropan. He straight catheterizes once a day before going to sleep. 3. Depression and anxiety: Continue Zoloft and Ativan p.r.n. 4. Tobacco use disorder, episodes of marijuana use: 5. Deep venous thrombosis prophylaxis: Sequential compression devices for now. DISPOSITION: Monitor in the medical floor. Expect to discharge home and follow with family doctor. Patient seen by my partner around 7 am today, will follow Labs Checked ROS-No Headache, No Visual Changes, No Nausea, No Vomiting, No Fever, No Chills, No Neck Pain or Stiffness, No Chest Pain, No Palpitations, No SOB, No FLAHERTY, No Cough, No Sputum, No Wheezing, No Abdominal Pain, No Diarrhea, No Hematemesis, No Hemoptysis, No Unexpected Weight Loss, No Flank pain, No Melena, No Hematochezia, No Frequency, No Urgency, No Burning, No Hematuria, No Rashes, No Diaphoresis. Appetite is Normal, resolved Hematuria Physical Exam Gen-AAO x 3, NAD, Afebrile Head-NCAT, EOMI, PERRLA, Anicteric Sclera, No Posterior Pharyngeal Erythema Neck-Supple, No JVD, No Thyromegaly, No Masses, No LAD, No Bruits Lungs-Clear to Auscultation Bilaterally, No Rales, No Rhonchi, No Wheezing, No Crepitus Chest-No S4, +S1, +S2, No S3, No Murmurs, No Rubs, No Gallops, No Ectopy Abdomen-Soft, Bowel Sounds Present, Mildly Tender, Non Distended, No Hepatomegaly, No Splenomegaly, No Palpable Masses, No Rebound, No Rigidity, + Guarding Musculoskeletal-Full Range of Motion Bilaterally, No CVAT Extremities-No Cyanosis, No Clubbing, No Edema Nuero-Cranial Nerves II-XII grossly intact, Motor WNL, DTRs WNL, Strength WNL, Non Focal Psych-Normal Mood Admission and Anticipated Discharge Date Admission Date: August 02, 2020 Results & Data Results & Data ([facility]) Vital Signs (Past 12 Hours) Vital Signs Temp Pulse Pulse Resp BP BP Pulse Ox 08/02/20 07:05 36.7 C 60 16 103/59 L 96 08/02/20 03:36 37 C 67 16 126/76 94 08/02/20 02:24 82 18 126/83 98 08/02/20 01:09 82 20 131/69 100 08/01/20 23:30 60 17 110/77 98 08/01/20 23:19 77 16 124/77 100 08/01/20 22:00 68 17 123/85 97 (1) Urinary tract infection Hematuria presence: with hematuria Urinary tract infection type: site unspecified Qualified Code(s): N39.0 - Urinary tract infection, site not specified; R31.9 - Hematuria, unspecified
[2020-08-02] MEDS: NYSTATIN POWDER 15GM BTL EXT SCH ×2 (09:57→21:47)
[2020-08-02] MEDS: OXYBUTYNIN CHLORIDE XL 5 MG TABCR PO SCH (09:59)
[2020-08-02] MEDS: SERTRALINE HCL 100 MG TABLET PO SCH (10:00)
--- NOTE | 2020-08-02 11:08 | Electrocardiogram Report ---
Test Reason : Blood Pressure : / mmHG Vent. Rate : 090 BPM Atrial Rate : 090 BPM P-R Int : 132 ms QRS Dur : 082 ms QT Int : 364 ms P-R-T Axes : 061 100 050 degrees QTc Int : 445 ms Normal sinus rhythm with sinus arrhythmia Rightward axis Diffuse Nonspecific T wave abnormality Abnormal ECG When compared with ECG of 08-SEP-2019 13:59, Nonspecific T wave abnormality now evident in multiple leads Confirmed by Everardo Nolan ([id number]) on 08/02/2020 11:08:15 AM Referred By: REFERRED SELF Confirmed By:Everardo Nolan
[2020-08-02] MEDS ORDERED: KETOROLAC 30 MG/ML VIAL IV PRN (11:17)
[2020-08-02] MEDS: ACETAMINOPHEN 500 MG TAB PO SCH ×3 (12:23→20:00)
[2020-08-02] MEDS: LORazepam 0.5 MG TAB PO PRN (12:24)
[2020-08-02] MEDS: oxyCODONE HCL IR 5 MG TAB (IMMEDIATE RELEASE) PO PRN ×2 (12:29→21:46)
[2020-08-02] MEDS: NICOTINE 21 MG/24 HR TDSY TD SCH (13:47)
[2020-08-02] MEDS: PIPERACILLIN/TAZOBACTAM 3.375 GM in DEXTROSE 5% 100 ML IV SCH ×2 (15:33→21:58)
[2020-08-02] MEDS: MoRPHine SULFATE 4 MG/ML 1 ML CARP\\VIAL IV PRN ×2 (15:40→23:34)
[2020-08-02] MEDS: SENNA 8.6 MG TAB PO SCH (21:46)
[2020-08-02] MEDS: traZODone HCL 50 MG TAB PO SCH (21:55)
[2020-08-03] MEDS: PIPERACILLIN/TAZOBACTAM 3.375 GM in DEXTROSE 5% 100 ML IV SCH ×3 (05:47→21:30)
[2020-08-03] MEDS: MoRPHine SULFATE 4 MG/ML 1 ML CARP\\VIAL IV PRN ×3 (05:48→20:46)
[2020-08-03 06:10] LABS: Basophils # (auto) 0.03 K/uL (0-0.2); Basophils % (auto) 0.4 %; Eosinophils # (auto) 0.46 K/uL (0-0.5); Eosinophils % (auto) 5.4 %; Hematocrit (blood only) 43.2 % (42-52); Hemoglobin 15.1 g/dL (14.0-18.0); Immature Granulocytes # (auto) 0.02 K/uL (0.00-0.02); Immature Granulocytes % (auto) 0.2 %; Lymphocytes # (auto) 3.17 K/uL (1.2-3.4); Lymphocytes % (auto) 37.4 %; Mean Corpuscular Hemoglobin 29.2 pg (25-34); Mean Corpuscular Volume 83.6 fL (80-100); Monocytes # (auto) 0.72 K/uL (0.11-0.59); Monocytes % (auto) 8.5 %; Neutrophils # (auto) 4.07 K/uL (1.4-6.5); Neutrophils % (auto) 48.1 %; Platelet Count 198 K/uL (130-400); RDW Coefficient of Variation 13.4 % (11.5-14.5); RDW Standard Deviation 40.2 fL (36.4-46.3); Red Blood Count 5.17 M/uL (4.7-6.1); White Blood Count 8.47 K/uL (4.8-10.8)
[2020-08-03 06:42] LABS: Albumin Level 3.5 gm/dl (3.4-5.0); BUN Creatinine Ratio 20.3 (10-20); Calcium 8.9 mg/dl (8.5-10.1); Creatinine Clr Calc Pharmacy 105.2 ml/min; Est GFR (African American) 140.4; Est GFR (Non-African American) 121.1; Potassium 4.2 mmol/L (3.5-5.1)
[2020-08-03 06:45] LABS: Albumin Globulin Ratio 1.1 (0.9-2); Bilirubin,Total 0.6 mg/dl (0.2-1); Globulin 3.3 gm/dl (2.5-4.0); Total Protein 6.8 gm/dl (6.4-8.2)
[2020-08-03] MEDS: oxyCODONE HCL IR 5 MG TAB (IMMEDIATE RELEASE) PO PRN (08:05)
[2020-08-03] MEDS: SODIUM CHLORIDE 0.9% 1000ML 1,000 ML IV SCH ×2 (08:25→19:14)
[2020-08-03] MEDS: NYSTATIN POWDER 15GM BTL EXT SCH ×2 (08:27→21:28)
[2020-08-03] MEDS: ACETAMINOPHEN 500 MG TAB PO SCH ×4 (08:28→21:27)
[2020-08-03] MEDS: OXYBUTYNIN CHLORIDE XL 5 MG TABCR PO SCH (08:28)
[2020-08-03] MEDS: SERTRALINE HCL 100 MG TABLET PO SCH (08:37)
[2020-08-03] MEDS: NICOTINE 21 MG/24 HR TDSY TD SCH (08:37)
[2020-08-03] MEDS: POLYETHYLENE (MIRALAX) 17 GM PACK PO SCH (08:38)
--- NOTE | 2020-08-03 09:18 | Urology Progress Note ---
Date of Service August 03, 2020 Assessment & Plan (1) Urinary tract infection: (2) Hematuria: (3) Acute flank pain: 25 year-old male patient, with history of neurogenic bladder and Zfqsfmx-Zsiiu-Dyzpb disease, admitted with left flank pain, hematuria, and presumed UTI. -Gross hematuria resolved, likely in the setting of self-catheterization and infection. -He remains afebrile. -Labs reviewed - white count and creatinine stable. -Blood and urine cultures pending. -Recommend supportive care and continued antibiotic therapy, await final culture results. -Will likely need 10-14 day course of antibiotics pending culture sensitivities. -Maintain Zavala catheter. -Will arrange outpatient follow-up with urology service. -Thank you for allowing us to participate in the acute care of Mr. Donald. Please reconsult us with additional questions, concerns or changes in patient status. Admission and Anticipated Discharge Date Admission Date: August 02, 2020 Subjective Pt examined at bedside this AM. Awake, resting in bed on arrival. He reports lower back pain and abdominal discomfort. Some intermittent nausea. Zavala catheter intact, draining clear yellow urine. Denies fevers or chills. Denies vomiting. Tolerating regular diet. Pt states he "does not feel strong enough to go home at this point." Chart review: Afebrile Wbc 8.47 Hgb 15.1 Cr 0.85 Urine culture-pending Blood cultures-preliminary no growth Continues on IV Zosyn Zavala output overnight -450ml Review of Systems Constitutional: as per Subjective / HPI Gastrointestinal: as per Subjective / HPI Genitourinary: + as per Subjective / HPI Physical Exam Constitutional: cooperative; no acute distress Respiratory: normal respiratory effort and able to speak in complete sentences Cardiovascular: Extremities: no calf tenderness Gastrointestinal (Abdomen): Inspection/Auscultation: abdomen normal to inspection; abdomen not distended Percussion/Palpation: + abdomen tender (Generlized tenderness with palpation) and abdomen soft; no guarding Musculoskeletal: Moves all extremities without difficulty. Skin: No visible rashes, lesions, or wounds noted. Neurologic: moves all extremities and awake Psychiatric: Orientation: alert and oriented x 3 Affect: euthymic affect Genitourinary: Zavala catheter intact Results & Data ([facility]) Vital Signs (Past 12 Hours) Vital Signs Temp Pulse Resp BP Pulse Ox 08/03/20 07:43 36.4 C L 62 18 104/49 L 97 08/02/20 21:51 36.6 C 60 20 114/68 96 PG Care Time/CCT Total # of Minutes Spent Total Time Spent with Patient: Total time spent is greater than 50% in coordination of care (as documented) at patient's floor/unit and/or counseling patient: Coding Level of Care Code 73493 Subseq Hosp Care Lvl 2 Diagnoses Urinary tract infection N39.0; R31.9 Hematuria presence: with hematuria Urinary tract infection type: site unspecified Hematuria R31.9 Acute flank pain R10.9 (1) Urinary tract infection Hematuria presence: with hematuria Urinary tract infection type: site unspecified Qualified Code(s): N39.0 - Urinary tract infection, site not specified; R31.9 - Hematuria, unspecified
[2020-08-03] MEDS ORDERED: PROMETHAZINE HCL 25 MG TAB PO PRN (11:59)
[2020-08-03] MEDS: ONDANSETRON INJ 2 MG/ML 2 ML VIAL IV PRN (12:20)
--- NOTE | 2020-08-03 14:41 | Hospitalist Progress Note ---
Date of Service August 03, 2020 Assessment & Plan (1) Dwzwqtu-Hwszc-Yrimb disease: Has h/o CMT disease since childhood with flares in the past. Patient doesn't remember of any specific treatment that was helpful. He is interested in seeing a CMT specialist regarding current issues. Consulting neurology especially in light of new lower extremity weakness with worsening sensation deficit to mid thighs, especially starting one week after first covid vaccine was given. Of note, patient states that at baseline he has some numbness around his ankles bilaterally and is able to ambulate independently. (2) Weakness: Uncertain etiology. Concern for neurologic etiology as described above. Consulted Neurology. PT and OT are consulted for formal assessments. (3) Acute flank pain: Initially thought to be related to possible UTI/pyelo, however, UA/UCx is coming up negative. Continue Zosyn for now until urine culture results are finalized. Etiology may be more CMT related where pain is caused by a neurologic reason, poss CMT flare?. Cont morphine and oxycodone for now and de- escalate pain medications as able. (4) Hematuria: This has resolved. Zavala in place and patient is requesting a trial of void, which is reasonable. Will dc Zavala now. Cont any workup per Urology recommendations, which may change if it turns out that no infection is present. Hematuria may have been from straight cath procedure at home. (5) Urinary tract infection: Possible UTI/pyelo, currently on Zosyn, however, preliminary culture results are negative. Cont to monitor on current therapy for now. 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 Sees outpatient ophthalmology regularly. (7) Tobacco use: strongly advised to quit vaping marijuana substances. Verbalized understanding of the hazards. (8) DVT prophylaxis: SCDs/ambulation with assistance. Full Code Dispo-pending Neuro recs and PT/OT evaluation. Also pending patient improvement in weakness and need for further workup of this, with unclear etiology. Nevaeh Owens DO [facility] Hospitalist Admission and Anticipated Discharge Date Admission Date: August 02, 2020 Subjective 25 yo M with h/o CMT, neurogenic bladder issues with chronic incontinence noticed some gross hematuria when performing his regular nightly self catheterizations in the setting of bilateral CVA tenderness and pelvic/suprapubic tenderness for the past week. He also has reported significant weakness and worsening numbness in his lower extremities that is increased from his baseline. 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 He has severe enough pain that he is requiring morphine and oxycodone. CT a/p was performed and no acute intra- abdominal abnormality was noted. He was empirically started on antibiotics, however, preliminary UA/UCx is not consistent with infection. The patient reports having had a COVID vaccine at the end of Jun, approximately 1 week prior to the onset of symptoms. He denies any SOB or chest pain. He admits to vaping marijuana and we discussed that this is very bad for his health. Review of Systems Review of Systems: All systems reviewed & are unremarkable except as noted in Subjective Physical Exam Physical Exam: CONSTITUTIONAL: WNWD, vitals as above, generally well-appea ring EYES: PERRL, normal conjunctivae, normal sclerae, +nystagmus ENT: external ear and nose normal, MMM RESPIRATORY: clear to auscultation bilaterally, no crackles, rales or wheezes, normal respiratory effort CARDIOVASCULAR: regular rate and rhythm, S1 and 2 heard without murmurs, gallops or rubs, no JVD, no peripheral edema GASTROINTESTINAL: soft, nontender, nondistended, no guarding MUSCULOSKELETAL: strength 5/5 throughout, head is normocephalic and atraumatic SKIN: warm and dry NEUROLOGIC: patellar DTRs 0/4-cannot elicit them bilaterally, no Achilles reflexes present either. 2/4 brachioradialis reflex bilaterally. No facial palsy, no dysarthria. Some right eye lateral deviation at rest. +sensory deficits in bilateral lower extremities to level of mid thighs. Normal cogni tion, normal speech, no tremor PSYCHIATRIC: alert cooperative and oriented to person, place and time. Euthymic mood, makes good eye contact, language grossly intact, recent and remote memory grossly intact. Results & Data Results & Data ([facility]) Vital Signs (Past 12 Hours) Vital Signs Temp Pulse Resp BP Pulse Ox 08/03/20 07:43 36.4 C L 62 18 104/49 L 97 Laboratory Results Short CBC 08/03/20 Range/Units 05:46 WBC 8.47 (4.8-10.8) K/uL Hgb 15.1 (14.0-18.0) g/dL Hct 43.2 (42-52) % Plt Count 198 (130-400) K/uL BMP 08/03/20 05:46 Sodium 140 Potassium 4.2 Chloride 107 Carbon Dioxide 28 BUN 17 Creatinine 0.85 Glucose 89 Calcium 8.9 Liver Function 08/03/20 Range/Units 05:46 Total Bilirubin 0.6 (0.2-1) mg/dl AST 15 (15-37) U/L ALT 24 (12-78) U/L Alkaline Phosphatase 51 (45-117) U/L Albumin 3.5 (3.4-5.0) gm/dl Medications Administered Current Inpatient Medications Acetaminophen (Acetaminophen 500 Mg Tab) 500 mg PO Q4HWA [facility] Stop: 09/01/20 11:59 Last Admin: 08/03/20 12:20 Dose: Not Given Documented by: Albuterol (Albuterol Hfa 8 Gm Inhaler) 2 puffs INH QID PRN PRN Reason: Shortness Of Breath Or Wheezing Stop: 09/01/20 03:33 Cyclobenzaprine HCl (Cyclobenzaprine Hcl 10 Mg Tab) 10 mg PO TID PRN PRN Reason: Muscle Spasm Stop: 09/01/20 03:56 Docusate Sodium (Docusate Sodium 100 Mg Cap) 100 mg PO BID PRN PRN Reason: Constipation Stop: 09/01/20 19:31 Ergocalciferol (Ergocalciferol 50,000 Units 1250 Mcg Cap) 50,000 units PO Th@0900 [facility] Stop: 09/03/20 08:59 Sodium Chloride (Nss 1000ml) 1,000 mls @ 100 mls/hr IV .Q10H [facility] Stop: 09/01/20 03:33 Last Admin: 08/03/20 08:25 Dose: 100 mls/hr Documented by: Piperacillin Sod/Tazobactam (Sod 3.375 gm/ Dextrose) 115 mls @ 28.75 mls/hr IV Q8H [facility]; Protocol Stop: 08/12/20 13:59 Last Admin: 08/03/20 13:30 Dose: 28.8 mls/hr Documented by: Lorazepam (Lorazepam 0.5 Mg Tab) 0.5 mg PO Q8H PRN PRN Reason: Anxiety Stop: 09/01/20 03:33 Last Admin: 08/02/20 12:24 Dose: 0.5 mg Documented by: Miscellaneous (Remove Nicoderm Patch) 1 ea N/A DAILY@0859 [facility] Stop: 09/02/20 08:58 Last Admin: 08/03/20 08:38 Dose: 1 ea Documented by: Miscellaneous Information (Piperacill/Tazobac Consult Active) 1 ea N/A UD PRN PRN Reason: Consult Stop: 08/31/20 22:14 Morphine Sulfate (Morphine Sulfate 4 Mg/Ml 1 Ml Carp\Vial) 4 mg IV Q6H PRN PRN Reason: Severe Pain Stop: 08/16/20 12:24 Last Admin: 08/03/20 05:48 Dose: 4 mg Documented by: Nicotine (Nicotine 21 Mg/24 Hr Tdsy) 21 mg TD QAM [facility] Stop: 09/01/20 12:29 Last Admin: 08/03/20 08:37 Dose: 21 mg Documented by: Nystatin (Nystatin Powder 15gm Btl) 1 appln EXT BID [facility] Stop: 09/01/20 08:59 Last Admin: 08/03/20 08:27 Dose: Not Given Documented by: Ondansetron HCl (Ondansetron Inj 2 Mg/Ml 2 Ml Vial) 4 mg IV Q8H PRN PRN Reason: Nausea Stop: 09/02/20 11:58 Last Admin: 08/03/20 12:20 Dose: 4 mg Documented by: Oxybutynin Chloride (Oxybutynin Chloride Xl 5 Mg Tabcr) 15 mg PO DAILY [facility] Stop: 09/01/20 08:59 Last Admin: 08/03/20 08:28 Dose: 15 mg Documented by: Oxycodone HCl (Oxycodone Hcl Ir 5 Mg Tab (Immediate Release)) 5 mg PO Q4H PRN PRN Reason: Pain Stop: 08/16/20 12:18 Last Admin: 08/03/20 08:05 Dose: 5 mg Documented by: Polyethylene Glycol (Polyethylene (Miralax) 17 Gm Pack) 17 gm PO DAILY PRN PRN Reason: Constipation Stop: 09/01/20 03:33 Last Admin: 08/02/20 04:09 Dose: 17 gm Documented by: Polyethylene Glycol (Polyethylene (Miralax) 17 Gm Pack) 17 gm PO DAILY [facility] Stop: 09/02/20 08:59 Last Admin: 08/03/20 08:38 Dose: 17 gm Documented by: Promethazine HCl (Promethazine Hcl 25 Mg Tab) 25 mg PO Q6H PRN PRN Reason: Nausea And Vomiting Stop: 09/02/20 11:58 Sennosides (Senna 8.6 Mg Tab) 17.2 mg PO PM [facility] Stop: 09/01/20 20:59 Last Admin: 08/02/20 21:46 Dose: 17.2 mg Documented by: Sertraline HCl (Sertraline Hcl 100 Mg Tablet) 100 mg PO DAILY [facility] Stop: 09/01/20 08:59 Last Admin: 08/03/20 08:37 Dose: 100 mg Documented by: Trazodone HCl (Trazodone Hcl 50 Mg Tab) 150 mg PO HS [facility] Stop: 09/01/20 20:59 Last Admin: 08/02/20 21:55 Dose: 150 mg Documented by: (1) Urinary tract infection Hematuria presence: with hematuria Urinary tract infection type: site unspecified Qualified Code(s): N39.0 - Urinary tract infection, site not specified; R31.9 - Hematuria, unspecified
[2020-08-03] MEDS ORDERED: SOD PHOSPHATE/SOD BIPHOSPHATE ENEMA 132 ML BTL PR STA (16:55)
[2020-08-03] MEDS ORDERED: PROMETHAZINE HCL 12.5 MG in SODIUM CHLORIDE 0.9% 50 ML IV PRN (20:20)
[2020-08-03] MEDS: SENNA 8.6 MG TAB PO SCH (21:28)
[2020-08-03] MEDS: traZODone HCL 50 MG TAB PO SCH (21:30)
[2020-08-03] MEDS ORDERED: METOCLOPRAMIDE HCL INJ 5 MG/ML 2 ML VIAL IV ONE (22:44)
[2020-08-04] MEDS: SODIUM CHLORIDE 0.9% 1000ML 1,000 ML IV SCH ×2 (04:04→14:13)
[2020-08-04] MEDS: MoRPHine SULFATE 4 MG/ML 1 ML CARP\\VIAL IV PRN ×3 (04:04→22:40)
[2020-08-04] MEDS: PIPERACILLIN/TAZOBACTAM 3.375 GM in DEXTROSE 5% 100 ML IV SCH ×2 (05:46→14:37)
[2020-08-04] MEDS: ACETAMINOPHEN 500 MG TAB PO SCH ×4 (07:36→20:58)
[2020-08-04] MEDS: OXYBUTYNIN CHLORIDE XL 5 MG TABCR PO SCH (07:39)
[2020-08-04] MEDS: NYSTATIN POWDER 15GM BTL EXT SCH ×2 (07:40→20:59)
[2020-08-04] MEDS: NICOTINE 21 MG/24 HR TDSY TD SCH (08:03)
[2020-08-04] MEDS: SERTRALINE HCL 100 MG TABLET PO SCH (08:05)
[2020-08-04] MEDS: POLYETHYLENE (MIRALAX) 17 GM PACK PO SCH (08:06)
[2020-08-04] MEDS ORDERED: ERGOCALCIFEROL 50,000 UNITS 1250 MCG CAP PO SCH (09:00)
[2020-08-04] MEDS: DOCUSATE SODIUM 100 MG CAP PO PRN (10:36)
[2020-08-04] MEDS: oxyCODONE HCL IR 5 MG TAB (IMMEDIATE RELEASE) PO PRN (12:53)
[2020-08-04] MEDS ORDERED: GLYCERIN ADULT 12 SUPP/BOX SUPP PR ONE (13:54)
[2020-08-04] MEDS: LORazepam 0.5 MG TAB PO PRN (18:09)
[2020-08-04] MEDS ORDERED: GADOBUTROL 65ML VIAL IV ONE (18:39)
--- NOTE | 2020-08-04 19:05 | Hospitalist Progress Note ---
Date of Service August 04, 2020 Assessment & Plan (1) Acute urinary retention: Failed a TOV. He has been on Ditropan since last summer and was continued on this here. May be contributing in the setting of chronic neurogenic bladder. (2) Weakness: Uncertain etiology. Concern for neurologic etiology as described above. Consulted Neurology. PT and OT are consulted for formal assessments. 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 Patient doesn't remember of any specific treatment that was helpful. He is interested in seeing a CMT specialist regarding current issues. No concern for acute demyelinating process at this time. Per Neurology, it is likely safe to proceed with second covid vaccine as planned. Will consider LP puncture after MRI L spine results tonight. Will discuss this with the patient in am. For now [place] [facility] [place]. I have placed a call to the [facility] [place]. Jackson[place] [place] per patient request and will plan to discuss the case with him further in the morning. (4) Acute flank pain: Initially thought to be related to possible UTI/pyelo, however, UA/UCx is coming up negative. Abx discontinued. He is reporting this to be improved. Constipation is an issue and the patient is not walking around. Discouraged further narcotic use. (5) Hematuria: This has resolved. No presence of infection. Defer to Urology for any need of further investigation into this, however, hematuria was clearly seen when patient was undergoing self-instrumentation possibly under the influence of marijuana which may have caused a traumatic catheterization. Will discuss plan with Urology further. (6) Urinary tract infection: ruled out. Zosyn stopped. 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 Sees outpatient ophthalmology regularly. (8) Tobacco use: strongly advised to quit vaping marijuana substances. Verbalized understanding of the hazards. (9) DVT prophylaxis: SCDs/ambulation with assistance. Full Code Dispo-weakness must improve. PT currently recommending acute rehab program. Will discuss further with case management when inpatient workup is complete. Nevaeh Owens DO [facility] Hospitalist Admission and Anticipated Discharge Date Admission Date: August 02, 2020 Subjective 25 yo M with h/o CMT, neurogenic bladder issues with chronic incontinence presented with bilateral CVA tenderness and pelvic pain along with progressive lower extremity weakness He feels his weakness is worse today and is unable to move around much or ambulate He reports numbness persists in his legs bilaterally to the level of his mid thighs. He is tolerating PO He reports that his back pain has started to ease up He is still constipated We discussed transfer to [facility] and he identified a provider of choice-Dr. Edwrad Jackson, DO-Neurology [facility] and are less concerned about any acute demyelinating process Feel it is safe to receive second dose of covid vaccine Contacted [facility] transfer center -spoke with Neuro contracts law professor, Dr. Escalante. Declined transfer based on current information but suggested possible LP MRI L spine w/wo contrast pending Patient failed TOV and weir catheter had to be replaced--Oxybutinin was stopped. Urology following Zosyn stopped as cultures are negative. Intermittent vomiting because of described motion sickness with too much movement. Review of Systems Review of Systems: All systems reviewed & are unremarkable except as noted in Subjective Physical Exam Physical Exam: CONSTITUTIONAL: WNWD, vitals as above, generally well- appearing EYES: PERRL, normal conjunctivae, normal sclerae, +nystagmus ENT: external ear and nose normal, MMM RESPIRATORY: clear to auscultation bilaterally, no crackles, rales or wheezes, normal respiratory effort CARDIOVASCULAR: regular rate and rhythm, S1 and 2 heard without murmurs, gallops or rubs, no JVD, no peripheral edema GASTROINTESTINAL: soft, nontender, nondistended, no guarding MUSCULOSKELETAL: decreased strength in lower extremities bilaterally-difficult to test level as patient cannot perform much of an active ROM. Weaker in left>right extremity. Decreased dorsi and plantarflexion bilaterally. Gait not assessed. head is normocephalic and atraumatic SKIN: warm and dry NEUROLOGIC: patellar DTRs 0/4-cannot elicit them bilaterally. No facial palsy, no dysarthria. Some right eye lateral deviation at rest. +sensory deficits(numbness) in bilateral lower extremities to level of mid thighs-same as yesterday. Normal cognition, normal speech, no tremor PSYCHIATRIC: alert cooperative and oriented to person, place and time. Euthymic mood, makes good eye contact, language grossly intact, recent and remote memory grossly intact. Results & Data Results & Data ([facility]) Vital Signs (Past 12 Hours) Vital Signs Temp Pulse Resp BP Pulse Ox 08/04/20 16:08 36.6 C 62 18 113/62 96 08/04/20 07:34 36.2 C L 54 L 16 123/72 99 (1) Urinary tract infection Hematuria presence: with hematuria Urinary tract infection type: site unspecified Qualified Code(s): N39.0 - Urinary tract infection, site not specified; R31.9 - Hematuria, unspecified
--- NOTE | 2020-08-04 19:44 | Consultation Report ---
DATE OF CONSULTATION: 08/04/2020 NEUROLOGY CONSULTATION NOTE CHIEF COMPLAINT: Lower extremity weakness. HISTORY OF PRESENT ILLNESS: A 25-year-old male admitted to the hospital with hematuria and a urinary tract infection, noted to have increased weakness in both legs. He does have a history of Pjazpgi-Tfgbm-Nkybs disease as well as a neurogenic bladder. He has been seen by neurology in the past. Last seen in 2019. He has unknown family history as he is adopted. He is from [place]. He was diagnosed with Wwavabk-Otdqy-Ndovv disease at an early age around the age of 3-4. He states he was diagnosed at [facility]. As a result, he has had chronic weakness in both legs as well as bilateral foot drop and has chronic numbness in both legs. He also notes to me that he has had a longstanding history of urinary retention issues. He denies any symptoms in his hands. He denies any symptoms in the cranial bulbar nerves. He has no double vision or trouble swallowing. He states he did attempt to walk today and had very significant weakness. He denies any recent stressors. He does report having flareups in the past. His most recent flareup was roughly 5 years ago and this was in the setting of stress. He states he was unable to walk for 2 weeks, which then resolved on its own. He denies any recent stressors. He is working. He denies any pain. He does wish to seek a second opinion at the [facility]. He states he did discuss this with his mother last time and wishes to pursue a second opinion. ALLERGIES: BEE VENOM, PEANUT ALLERGY, POLLEN EXTRACTS. HOME MEDICATIONS: Albuterol as needed, vitamin D, Ativan as needed, nystatin, oxybutynin 15 mg daily, MiraLax as needed, trazodone 150 mg nightly. PAST MEDICAL HISTORY: Tfzilhd-Wuehk-Jeghv disease, neurogenic bladder. PAST SURGICAL HISTORY: He has a history of hammertoe surgery. FAMILY HISTORY: Unknown as he is adopted. SOCIAL HISTORY: He lives with his mother in [place]. He does smoke marijuana occasionally. Occasionally uses alcohol. REVIEW OF SYSTEMS: A 12-point review of systems was conducted and negative except as noted above in the HPI. PHYSICAL EXAMINATION: VITAL SIGNS: Blood pressure 113/62, pulse is 62, respiratory rate 18, temperature is 36.6 degrees Celsius. GENERAL: He appears his stated age, thin-appearing male, no distress. HEENT: His face is normocephalic and atraumatic. He has normal conjunctivae, right eyelid ptosis. NECK: Supple. LUNGS: Normal respiratory effort. CARDIOVASCULAR: Normal cardiac pulses. ABDOMEN: Nondistended. SKIN: No skin rash. PSYCHIATRIC: He has normal mood and affect. NEUROLOGIC: Appearance: He is awake, alert, in no acute distress. Orientation: He is oriented to person, place and time. His attention is normal. His knowledge is appropriate. His speech is clear with no aphasia or dysarthria. Comprehension is intact and he is able to repeat. His extraocular muscles are intact. His pupils are symmetric. Facial sensation is intact. Face is symmetric. Intact hearing. Palate is symmetric. Good shoulder shrug. Tongue is midline with no atrophy. Gait: The patient is unable to ambulate as he is unable to sit on the side of the bed without assistance. Coordination: There was no tremor or myoclonic jerks, there was no ataxia with azzdxp-xv-epox testing. Sensation is intact in the upper extremities and reduced to light touch in both legs. Muscle tone revealed a flail foot bilaterally. Muscle examination: Minimal effort was given with movement of the bilateral legs. The patient did passively move both legs. Reflexes were absent at both knees. He had no ankle clonus and Hanny sign was negative bilaterally. DIAGNOSTIC TESTING AND LABORATORY VALUES: WBC 8.47, hemoglobin 15.1, platelet count is 198. Sodium is 140, potassium 4.2, chloride 107, BUN is 17, creatinine 0.85, glucose is 89, AST and ALT are normal. Urinalysis on 08/01 shows 1+ blood, 5-10 epithelial cells, negative bacteria, trace leukocyte esterase. Urine culture from the shows no growth. CT abdomen and pelvis performed on 08/01 shows normal kidneys, no hydronephrosis, no bowel wall thickening or obstruction. Normal appendix, mild bladder wall thickening which could be due to underdistention. ASSESSMENT AND PLAN: A pleasant 25-year-old male with Gjjbqzr-Xdnep-Akprx disease and a neurogenic bladder, admitted for hematuria and urinary tract infection. The patient noted to have worsening bilateral leg weakness. On examination today, the patient demonstrates significant weakness in both legs, although question of effort seems poor. He has had similar symptoms in the past associated with stress, which resolved on their own. Unclear etiology of the progressive or subacute to acute onset of weakness in both legs. I would recommend obtaining an MRI of the lumbar spine with and without contrast for further evaluation. I did provide the patient with information regarding management of Hqeqyqi-Iofvv-Khngi. I suspect this weakness will improve with physical therapy and time. Further diagnostic testing will depend on the results of the MRI of the lumbar spine. Otherwise, Neurology will continue to follow up. ARMANDO
[2020-08-04] MEDS: traZODone HCL 50 MG TAB PO SCH (20:59)
[2020-08-04] MEDS: SENNA 8.6 MG TAB PO SCH (21:00)
[2020-08-05] MEDS: SODIUM CHLORIDE 0.9% 1000ML 1,000 ML IV SCH ×2 (02:48→12:20)
[2020-08-05] MEDS: ACETAMINOPHEN 500 MG TAB PO SCH ×2 (07:42→12:21)
[2020-08-05] MEDS: SERTRALINE HCL 100 MG TABLET PO SCH (07:42)
[2020-08-05] MEDS: POLYETHYLENE (MIRALAX) 17 GM PACK PO SCH ×2 (07:43→14:37)
[2020-08-05] MEDS: NICOTINE 21 MG/24 HR TDSY TD SCH (07:43)
[2020-08-05] MEDS: NYSTATIN POWDER 15GM BTL EXT SCH ×2 (07:45→20:47)
[2020-08-05] MEDS: DOCUSATE SODIUM 100 MG CAP PO PRN (07:49)
[2020-08-05] MEDS: ONDANSETRON INJ 2 MG/ML 2 ML VIAL IV PRN ×2 (07:49→20:57)
--- NOTE | 2020-08-05 09:14 | Magnetic Resonance Report ---
MRI OF THE LUMBAR SPINE COMBO CLINICAL HISTORY: Flank pain. Lower extremity weakness. Loss of reflexes. COMPARISON STUDY: CT scan of the lumbar spine dated 05/24/2018. Abdominal CT dated 08/01/2020. TECHNIQUE: MRI of the lumbar spine is performed utilizing various T1 and T2-weighted sequences in the axial and sagittal planes. Contrast-enhanced sequences are acquired following the IV administration of 5.5 cc of Gadavist. FINDINGS: Lumbar spine: Vertebral body height and alignment are maintained throughout the lumbar spine. Normal marrow signal intensity is preserved throughout the visualized bony structures. The transverse and sp inous processes appear intact. There is no evidence of spondylolysis. No destructive bony lesion is s een. Intervertebral discs: Degenerative disc desiccation is seen at L5-S1. Remaining discs are normal in h eight and signal intensity. Spinal cord: The visualized spinal cord is normal in morphology and signal intensity. The conus medul jodee terminates at the level of L2. The nerve roots of the cauda equina are normal in morphology. No abnormal postcontrast enhancement is identified. L1-L2: Unremarkable. L2-L3: Unremarkable. L3-L4: Unremarkable. L4-L5: Unremarkable. L5-S1: There is a posterior disc herniation with annular fissure. There is no significant acquired co mpromise of the central canal. This abuts the transiting bilateral nerve roots. This causes bilateral subarticular stenosis, and abuts the exiting bilateral L5 nerve roots. In conjunction with facet art hropathy there is minimal bilateral neural foraminal stenosis. Sacrum: The visualized sacrum is normal in morphology and signal intensity. Soft tissues: The paraspinous soft tissues are normal as visualized. The retroperitoneal structures a re grossly unremarkable but incompletely evaluated. IMPRESSION: 1. There is a small posterior disc herniation at L5-S1 as detailed above. This does not cause signifi cant acquired compromise of the central canal. 2. No destructive bony process is identified. Dictated: 08/05/2020 8:32 AM Transcribed: 08/05/2020 9:01 AM Dali [id number] GISELL_Marisa Electronically signed by: Bill Benitez M.D. 08/05/2020 9:12 AM
[2020-08-05] MEDS: GLYCERIN ADULT 12 SUPP/BOX SUPP PR PRN (10:36)
[2020-08-05] MEDS: LORazepam 0.5 MG TAB PO PRN ×2 (10:39→21:35)
--- NOTE | 2020-08-05 13:47 | Hospitalist Progress Note ---
Date of Service August 05, 2020 Assessment & Plan (1) Acute urinary retention: Has chronic neurogenic bladder. Takes ditropan regularly to help with overactive bladder at night. Failed a TOV with replacement of Zavala. Urology followup in office for TOV. . (2) Weakness: Uncertain etiology. 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 He reported not being able to stand but did examine as having 4/5 strngth in the legs and he actually walked with PT to the door and back to the hospital bed. This is less concerning, and at this time, I would like to see where theses symptoms go before calling [facility] [place] again. 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 Patient doesn't remember of any specific treatment that was helpful. He is interested in seeing a CMT specialist regarding current issues. Less concern for acute demyelinating process at this time but that is still a possibility especially in light of recent covid vaccination. (4) Acute flank pain: Initially thought to be related to possible UTI/pyelo, however, UA/UCx is coming up negative. Abx discontinued. He is reporting this to be improved but now they are worse again. Constipation is an issue and the patient is not walking around. Will consider LP puncture in three days as it may show nothing as symptoms onset was just 3 days ago. Transfer inpatient to [facility] has been declined. Dr Jackson and I discussed the case and he will follow Edward as outpatient. (5) Hematuria: This has resolved. No presence of infection. Defer to Urology for any need of further investigation into this, however, hematuria was clearly seen when patient was undergoing self-instrumentation possibly under the influence of marijuana which may have caused a traumatic catheterization. Will discuss plan with Urology further. 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 Sees outpatient ophthalmology regularly. (7) Posterior herniation of lumbar disc: Ortho spine consult placed but this is less likely the issue as he was able to walk today. Again, it may be too early for a response. (8) Tobacco use: strongly advised to quit vaping marijuana substances. Verbalized understanding of the hazards. (9) DVT prophylaxis: SCDs/ambulation with assistance. Full Code Dispo-weakness must improve. PT currently recommending acute rehab program. Will discuss further with case management when inpatient workup is complete. Nevaeh Owens DO [facility] Hospitalist Admission and Anticipated Discharge Date Admission Date: August 02, 2020 Subjective 25 yo M with h/o CMT, neurogenic bladder issues with chronic incontinence presented with bilateral CVA tenderness and pelvic pain along with progressive lower extremity weakness more fatigued today feels more weak in his legs no progression of numbness patient told me he wasn't able to stand today but per nurse/PT they report he was able to walk to the door patient did also request to shower similar back pain to yesterday I spoke with Dr. Edward Jackson at [facility]discussed conversation with patient--he will see as outpatient We discussed the possibility of an LP on Saturday if symptoms persist I will contact [facility] Neuro inpatient transfer center once more today to see if they would accept a transfer based on some new information from Dr. Jackson Patient otherwise doing well, still constipated, eating food. Denies shortness of breath and able to take full breaths. NIFs/vital capacities being trended as a precaution. Review of Systems Review of Systems: All systems reviewed & are unremarkable except as noted in Subjective Physical Exam Physical Exam: CONSTITUTIONAL: WNWD, vitals as above, generally well- appearing EYES: PERRL, normal conjunctivae, normal sclerae, +nystagmus ENT: external ear and nose normal, MMM RESPIRATORY: clear to auscultation bilaterally, no crackles, rales or wheezes, normal respiratory effort CARDIOVASCULAR: regular rate and rhythm, S1 and 2 heard without murmurs, gallops or rubs, no JVD, no peripheral edema GASTROINTESTINAL: soft, nontender, nondistended, no guarding MUSCULOSKELETAL: decreased strength in lower extremities bilaterally-appears to be 4/5 bilaterally. 3/5 dorsi and plantarflexion bilaterally slightly worse on the left foot. Gait not assessed. head is normocephalic and atraumatic SKIN: warm and dry NEUROLOGIC: patellar DTRs 0/4-cannot elicit them bilaterally. 2+ BR reflex bilat. No facial palsy, no dysarthria. Some right eye lateral deviation at rest. +sensory deficits(numbness) in bilateral lower extremities to level of mid thighs-same as yesterday. Normal cognition, normal speech, no tremor PSYCHIATRIC: alert cooperative and oriented to person, place and time. Euthymic mood, makes good eye contact, language grossly intact, recent and remote memory grossly intact. Results & Data Results & Data ([facility]) Vital Signs (Past 12 Hours) Vital Signs Temp Pulse Resp BP Pulse Ox 08/05/20 13:13 65 16 96 08/05/20 07:48 36.5 C 74 14 117/73 97 Diagnostic Findings [facility], [id number] Magnetic Resonance Report Patient: EDWARD ANNE Date: 08/02/20#: [id number]: [facility]:[id number]: Date: 1995City Zip: [place], [place] [address]Bco: 25Location: 3WSex: MRoom/Bed: [id number] Phy: Nevaeh Owens DODiagnosis: HEMATURIAPri Phy: Everardo Lemons MDService Date: 08/04/20Fam Phy:Interpreting Phy: Bill Benitez MDAdmit Phy: Logan Johnson MD Ordering Phy: Nevaeh Owens DO cc: ~ MRI OF THE LUMBAR SPINE COMBO CLINICAL HISTORY: Flank pain. Lower extremity weakness. Loss of reflexes. COMPARISON STUDY: CT scan of the lumbar spine dated 05/24/2018. Abdominal CT dated 08/01/2020. TECHNIQUE: MRI of the lumbar spine is performed utilizing various T1 and T2- weighted sequences in the axial and sagittal planes. Contrast-enhanced sequences are acquired following the IV administration of 5.5 cc of Gadavist. FINDINGS: Lumbar spine: Vertebral body height and alignment are maintained throughout the lumbar spine. Normal marrow signal intensity is preserved throughout the visualized bony structures. The transverse and spinous processes appear intact. There is no evidence of spondylolysis. No destructive bony lesion is seen. Intervertebral discs: Degenerative disc desiccation is seen at L5-S1. Remaining discs are normal in height and signal intensity. Spinal cord: The visualized spinal cord is normal in morphology and signal intensity. The conus medullaris terminates at the level of L2. The nerve roots of the cauda equina are normal in morphology. No abnormal postcontrast enhancement is identified. L1-L2: Unremarkable. L2-L3: Unremarkable. L3-L4: Unremarkable. L4-L5: Unremarkable. L5-S1: There is a posterior disc herniation with annular fissure. There is no significant acquired compromise of the central canal. This abuts the transiting bilateral nerve roots. This causes bilateral subarticular stenosis, and abuts the exiting bilateral L5 nerve roots. In conjunction with facet arthropathy there is minimal bilateral neural foraminal stenosis. Sacrum: The visualized sacrum is normal in morphology and signal intensity. Soft tissues: The paraspinous soft tissues are normal as visualized. The retroperitoneal structures are grossly unremarkable but incompletely evaluated. IMPRESSION: 1. There is a small posterior disc herniation at L5-S1 as detailed above. This does not cause significant acquired compromise of the central canal. 2. No destructive bony process is identified. Dictated: 08/05/2020 8:32 AM Transcribed: 08/05/2020 9:01 AM Dali [id number] [email or web address]_Greer Electronically signed by: Bill Benitez M.D. 08/05/2020 9:12 AM Dictated: 08/05/20 0832Transcribed: 08/05/20 0901 Medications Administered Current Inpatient Medications Acetaminophen (Acetaminophen 500 Mg Tab) 500 mg PO Q4HWA PRN PRN Reason: pain/fever Stop: 09/01/20 11:59 Albuterol (Albuterol Hfa 8 Gm Inhaler) 2 puffs INH QID PRN PRN Reason: Shortness Of Breath Or Wheezing Stop: 09/01/20 03:33 Cyclobenzaprine HCl (Cyclobenzaprine Hcl 10 Mg Tab) 10 mg PO TID PRN PRN Reason: Muscle Spasm Stop: 09/01/20 03:56 Docusate Sodium (Docusate Sodium 100 Mg Cap) 100 mg PO BID PRN PRN Reason: Constipation Stop: 09/01/20 19:31 Last Admin: 08/05/20 07:49 Dose: 100 mg Documented by: Ergocalciferol (Ergocalciferol 50,000 Units 1250 Mcg Cap) 50,000 units PO Th@0900 YAKOV Stop: 09/03/20 08:59 Last Admin: 08/04/20 08:05 Dose: 50,000 units Documented by: Glycerin (Glycerin Adult 12 Supp/Box Supp) 1 supp SD DAILY PRN PRN Reason: Constipation Stop: 09/04/20 10:14 Last Admin: 08/05/20 10:36 Dose: 1 supp Documented by: Promethazine HCl 12.5 mg/ (Sodium Chloride) 50.5 mls @ 202 mls/hr IV Q6H PRN PRN Reason: Nausea And Vomiting Stop: 09/02/20 20:19 Last Infusion: 08/03/20 21:14 Dose: Infused Documented by: Lorazepam (Lorazepam 0.5 Mg Tab) 0.5 mg PO Q8H PRN PRN Reason: Anxiety Stop: 09/01/20 03:33 Last Admin: 08/05/20 10:39 Dose: 0.5 mg Documented by: Miscellaneous (Remove Nicoderm Patch) 1 ea N/A DAILY@0859 [facility] Stop: 09/02/20 08:58 Last Admin: 08/05/20 07:46 Dose: 1 ea Documented by: Morphine Sulfate (Morphine Sulfate 4 Mg/Ml 1 Ml Carp\Vial) 4 mg IV Q4H PRN PRN Reason: Severe Pain Stop: 08/16/20 12:24 Last Admin: 08/04/20 22:40 Dose: 4 mg Documented by: Nicotine (Nicotine 21 Mg/24 Hr Tdsy) 21 mg TD QAM [facility] Stop: 09/01/20 12:29 Last Admin: 08/05/20 07:43 Dose: 21 mg Documented by: Nystatin (Nystatin Powder 15gm Btl) 1 appln EXT BID [facility] Stop: 09/01/20 08:59 Last Admin: 08/05/20 07:45 Dose: Not Given Documented by: Ondansetron HCl (Ondansetron Inj 2 Mg/Ml 2 Ml Vial) 4 mg IV Q8H PRN PRN Reason: Nausea Stop: 09/02/20 11:58 Last Admin: 08/05/20 07:49 Dose: 4 mg Documented by: Oxybutynin Chloride (Oxybutynin Chloride Xl 5 Mg Tabcr) 15 mg PO DAILY [facility] Stop: 09/01/20 08:59 Last Admin: 08/04/20 07:39 Dose: 15 mg Documented by: Oxycodone HCl (Oxycodone Hcl Ir 5 Mg Tab (Immediate Release)) 5 mg PO Q4H PRN PRN Reason: Pain Stop: 08/16/20 12:18 Last Admin: 08/04/20 12:53 Dose: 5 mg Documented by: Polyethylene Glycol (Polyethylene (Miralax) 17 Gm Pack) 17 gm PO DAILY PRN PRN Reason: Constipation Stop: 09/01/20 03:33 Last Admin: 08/02/20 04:09 Dose: 17 gm Documented by: Polyethylene Glycol (Polyethylene (Miralax) 17 Gm Pack) 17 gm PO DAILY YAKOV Stop: 09/02/20 08:59 Last Admin: 08/05/20 07:43 Dose: 17 gm Documented by: Sennosides (Senna 8.6 Mg Tab) 17.2 mg PO PM YAKOV Stop: 09/01/20 20:59 Last Admin: 08/04/20 21:00 Dose: 17.2 mg Documented by: Sertraline HCl (Sertraline Hcl 100 Mg Tablet) 100 mg PO DAILY YAKOV Stop: 09/01/20 08:59 Last Admin: 08/05/20 07:42 Dose: 100 mg Documented by: Trazodone HCl (Trazodone Hcl 50 Mg Tab) 150 mg PO HS YAKOV Stop: 09/01/20 20:59 Last Admin: 08/04/20 20:59 Dose: 150 mg Documented by:
[2020-08-05] MEDS: POLYETHYLENE (MIRALAX) 17 GM PACK PO PRN (14:38)
--- NOTE | 2020-08-05 14:55 | Neurology Progress Note ---
Date of Service August 05, 2020 Assessment & Plan (1) Weakness: 1. MRI L spine minor herniated disc not related to bilateral LE weakness 2. PT/OT discharge needs 3. primary team attempting to transfer to [facility] no clear reason for transfer 4. neurology at [facility] if weakness progress will need a LP and possible steroids and IVIG? 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 follow up with [facility] neurology at discharge- patient preference Present on Admission?: Yes (2) Acute urinary retention: 1. Ditropan stopped should help with retention - urology has been consulted and recommendations made. 2. straight cath as needed Present on Admission?: Yes Admission and Anticipated Discharge Date Admission Date: August 02, 2020 Supervising Physician Co-Signing Physician Notes I have seen and discussed above patient with Dr Taylor Alejandre, neurology. See dict note. TIARA Alejandre MD Kaitlin Leon is a 25 year old male admitted to the hospital with hematuria and a uri nary tract infection, noted to have increased weakness in both legs. He does have a history of Tvmdubs-Zacrq-Nwnwe disease as well as a neurogenic bladder. He has been seen by neurology in the past in our office but not since 2019. He has unknown family history as he is adopted. He was diagnosed with Ilfeagr-Qsmdh-Ddmsr disease at an early age around the age of 3-4. He states he was diagnosed at [facility]. He has had chronic weakness in both legs as well as bilateral foot drop and has chronic numbness in both legs. He also notes to me that he has had a longstanding history of urinary issues mainly incontinence and now his is having issues with retention. He was started on Ditropan but that has been stopped. According to the PT notes had did walk today but when questioned about it he states he was tripping all over the place with them. He had a flare-up about 5 years ago and this was in the setting of stress and was unable to walk for 2 weeks. It spontaneously resolved. he is not longer working at [employer] he was laid off because of low volume of customers in June. he wants to be transferred to [facility] to seek a second opinion. denies CP, SOB, abdominal pain, leg pain. +weakness, numbness bilateral LE Review of Systems Review of Systems: All systems reviewed & are unremarkable except as noted in HPI & below and All systems reviewed & are unremarkable except as noted in Subjective Physical Exam Physical Exam: Physical Exam: Constitutional: appearance nourished, healthy Ears, Nose, Mouth and Throat: mucous membranes moist, no injection and skin normal Cardiovascular: normal S-1 and S-2 and regular rate and rhythm Respiratory: clear to auscultation (CTA) and no rales, ronchi or wheeze Musculoskeletal: no peripheral edema Skin: no stigmata of neurocutaneous disease noted and normal and intact Eyes: extraocular muscles intact (EOMI) and pupils equal, round and reactive to light (PERRL), strabismus right eye NEUROLOGIC EXAMINATION: Mental status: Alert and interactive Oriented to full date and location Oriented to person Speech fluent with no evidence of aphasia Cranial Nerves smile eye brows symmetric Reflexes: Deep tendon reflexes absent bilaterally Sensory: absent light touch and pinch bilaterally thighs Coordination: finger to nose Gait/Stance: Posture sitting up in bed Motor: Negative for pronator drift of out stretched arms with eyes closed. 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 Results & Data ([facility]) Vital Signs (Past 12 Hours) Vital Signs Temp Pulse Resp BP Pulse Ox 08/05/20 13:13 65 16 96 08/05/20 07:48 36.5 C 74 14 117/73 97 Laboratory Results no new labs Diagnostic Findings MRI L spine- There is a small posterior disc herniation at L5-S1 as detailed above. This does not cause significant acquired compromise of the central canal. No destructive bony process is identified.
[2020-08-05] MEDS: ACETAMINOPHEN 500 MG TAB PO PRN (16:48)
[2020-08-05] MEDS ORDERED: LACTATED RINGER'S 1,000 ML IV ONE (21:30)
[2020-08-05] MEDS: traZODone HCL 50 MG TAB PO SCH ×2 (21:36→22:12)
[2020-08-05] MEDS: SENNA 8.6 MG TAB PO SCH (21:37)
[2020-08-05] MEDS ORDERED: GADOBUTROL 65ML VIAL IV ONE (23:29)
--- NOTE | 2020-08-05 23:33 | Progress Notes ---
DATE: 08/05/2020 Please see Taylor Pierre's note of today. I have reviewed the history and management and evaluation with Dr. Navarro as well as Dr. Nevaeh Owens. HISTORY OF PRESENT ILLNESS: The patient indicates that he was diagnosed with CMT at age 3. Typically, he is ambulatory without a walker. He has had multiple orthopedic surgeries on his feet. At baseline, he has weakness of the feet as well as numbness to the level of the ankles. For about the last week, the patient has had some increase in back pain. He has a chronic neurogenic bladder and is able to void, but needs to straight catheterize once a day. On the day of admission, he had not urinated at all and straight catheterized for a large amount of urine. The urine had blood in it and because of that the patient sought evaluation in the Emergency Room. He gives a history of increased weakness over that period of time over the last 1 week with numbness, which has ascended the legs as well. No upper extremity symptoms. No cranial nerve symptoms. He is not short of breath. His neurologic exam has been seen to fluctuate. He indicates he is weaker today than he had been. However, when Dr. Navarro examined him, in order to lift his legs, he had to move them manually, but apparently today in spite of difficulty with moving legs, he walked with physical therapy with a walker. His MRI of the lumbar spine, which I have reviewed is noncontributory. PHYSICAL EXAMINATION: The patient is awake and alert. He is a good historian and speech and language are normal. He is able to count past 30 on one breath. He is not short of breath at rest. There is mild diffuse lumbar tenderness. No deformity is noted and no spinal level to touch is noted. Pupils are equal. There is normal extraocular motility with the exception of nystagmus in most rogers of gaze, which is horizontal. This is chronic and related, I assume to the patient's glaucoma, congenital cataracts, etc. No facial weakness is noted. Eye closure is normal. Extraocular motility is notable for the above. Minimal neck flexor weakness, although effort was poor. Jaw opening, tongue protrusion is full. There is no nasality of speech. There is weakness of the FDIs and ADMs about best 4/5. Otherwise, upper extremity strength is full. His lower extremities are diffusely thin, he is more muscular above the knees. There is atrophy of the tibialis anterior and there are bilateral claw toes. Although the patient indicates he cannot activate the iliopsoas, with effort he is able to do so. Additionally, he will not let the leg fall on the wheelchair when I lift it up. So the iliopsoas are greater than 3/5. The quads are at least 4 to 4-, the hamstring is about 3+, tibialis anteriors are about 3, gastroc about 3 or 2+. Tone is diminished. He is areflexic throughout. There is no clonus and toes are downgoing. Vibration is not appreciated until the knees, but proprioception is intact at the toes, albeit perhaps mildly reduced. There is above the knee level to temperature. No sensory loss is noted in the uppers. Lxvabs-kn-ineg is mildly tremulous. Bzpq-zu-aiku even though the patient cannot lift above antigravity, he manages to perform zzzv-uw-lkei adequately. He tends to externally rotate his leg to do so. IMPRESSION AND PLAN: This is a patient who is said to have CMT since age 3. He has a neurogenic bladder, although it is unclear to this examiner whether or not it was upper motor neuron or lower motor neuron when cystometric studies were performed. The patient indicates that the duration of the urinary retention has been about a year and a half and that there has never been any evaluation such as MRI of the brain or peralta spine for further evaluation. I would recommend those studies. This patient has had fluctuating weakness while in hospital. There appeared to be some mismatch in his exam with intact, albeit mildly reduced proprioception in the toes, but vibration not being present until the knees. This makes differential diagnosis difficult. The patient indicates he had a prior episode several years ago where nothing was ultimately found and it was attributed to stress. Theoretically, the patient could have an acute inflammatory demyelinating neuropathy. MRI of the lumbar spine does not show any enhancement that might be seen in the same. My plan is to have him have the aforementioned MRIs looking for upper motor neuron lesions. Monitor his strength. If he continues to improve, then I do not think he necessarily needs any acute evaluation or transfer to a tertiary care hospital. It would be reasonable if he continues to be off baseline to do a lumbar puncture. [facility] had been contacted and recommended a lumbar puncture on Saturday, giving enough time to see if there is an elevated protein or albuminocytologic dissociation. Dr. Owens has ordered bedside pulmonary function tests, which have been normal to date. The patient is able to count past 30. He does not seem clinically short of breath. Monitor blood pressure carefully for dysautonomia. I do not see any evidence of fluctuation in that regard. We will follow with you.
[2020-08-06] MEDS: ACETAMINOPHEN 500 MG TAB PO PRN ×3 (00:07→19:42)
[2020-08-06] MEDS: NYSTATIN POWDER 15GM BTL EXT SCH ×2 (07:28→20:55)
[2020-08-06] MEDS: POLYETHYLENE (MIRALAX) 17 GM PACK PO SCH (07:33)
[2020-08-06] MEDS: NICOTINE 21 MG/24 HR TDSY TD SCH (07:33)
[2020-08-06] MEDS: SERTRALINE HCL 100 MG TABLET PO SCH (07:35)
--- NOTE | 2020-08-06 08:00 | Magnetic Resonance Report ---
MRI OF THE BRAIN COMBO CLINICAL HISTORY: Neurogenic bladder. COMPARISON STUDY: CT of the brain dated 06/12/2018. TECHNIQUE: MRI of the brain was performed utilizing various T1 and T2-weighted sequences in the axial , sagittal, and coronal planes. Contrast-enhanced sequences were acquired following the administratio n of 5.5 cc of Gadavist. FINDINGS: Brain parenchyma: The brain parenchyma is normal in appearance. There is no hemorrhage or mass effect . There is no restricted diffusion to suggest acute ischemia. No enhancing mass lesion is identified on the postcontrast images. Tilley-white matter differentiation is preserved. No extra-axial fluid vamsi ection is seen. The cerebellar tonsils are normal in configuration. Ventricles, sulci, and cisterns: Normal in configuration. Pituitary and sella: Unremarkable. Intracranial vasculature: Normal flow voids are maintained at the skull base. Orbits: The bony orbits are grossly intact. Orbital contents are normal in appearance noting bilatera l ocular lens implants. Sinuses and mastoids: There is mild mucosal thickening within the left ethmoid sinuses. The remaining paranasal sinuses are clear. The mastoid air cells are well pneumatized. Calvarium: Unremarkable. Cervical cord: Partially visualized cervical spinal cord is normal in morphology and signal intensity . IMPRESSION: No intracranial abnormality is identified. ACT 112: Negative or not required by law. Electronically signed by: Bill Benitez M.D. 08/06/2020 7:59 AM
--- NOTE | 2020-08-06 08:23 | Magnetic Resonance Report ---
MRI OF THE CERVICAL SPINE COMBO CLINICAL HISTORY: Neurogenic bladder. COMPARISON STUDY: CT of the cervical spine dated 05/24/2018. TECHNIQUE: MRI of the cervical spine is performed using various T1 and T2-weighted sequences in the a xial and sagittal planes. Contrast-enhanced sequences are acquired following the IV administration of 5.5 cc of Gadavist. FINDINGS: Cervical spine: There is a mild chronic superior endplate compression deformity of C7. Vertebral body height is otherwise maintained throughout the cervical spine. Alignment is preserved. There is strai ghtening of the cervical lordosis with reversal centered at C5. The atlantodental articulation is fab ntained. The spinous processes appear intact. No destructive bony lesion is seen. Intervertebral discs: There is mild degenerative disc desiccation. The disc spaces are preserved. Spinal cord: The cervical spinal cord is normal in morphology and signal intensity. No abnormal postc ontrast enhancement is identified. C2-C3: Mild facet arthropathy is of no consequence. The central canal and neural foramina are patent. C3-C4: Mild facet arthropathy is of no consequence. The central canal and neural foramina are patent. C4-C5: A posterior disc osteophyte complex minimally effaces the ventral subarachnoid space. Facet ar thropathy is of no consequence. The neural foramina are patent. C5-C6: A small central posterior disc protrusion abuts the ventral cord. The neural foramina are lynch nt. C6-C7: Unremarkable. C7-T1: Unremarkable. Soft tissues: The prevertebral and paraspinous soft tissues are normal as visualized. Brain parenchyma: The imaged brain parenchyma at the skull base is normal in appearance. IMPRESSION: 1. There is a mild chronic superior endplate compression deformity of C7. 2. The cervical spinal cord is normal in morphology and signal intensity with no abnormal postcontras t enhancement. 3. Minimal degenerative disc disease as above. Dictated: 08/06/2020 7:59 AM Transcribed: 08/06/2020 8:21 AM Taylor [id number] GISELL_Gloria Electronically signed by: Bill Benitez M.D. 08/06/2020 8:21 AM
--- NOTE | 2020-08-06 08:33 | Magnetic Resonance Report ---
MRI OF THE THORACIC SPINE COMBO CLINICAL HISTORY: Neurogenic bladder. COMPARISON STUDY: CT scan of the thoracic spine dated 05/24/2018. TECHNIQUE: MRI of the thoracic spine is performed using various T1 and T2-weighted sequences in the a xial and sagittal planes. Contrast-enhanced sequences are acquired following the IV administration of 5.5 cc of Gadavist. The examination is significantly compromised by motion artifact. FINDINGS: There are minimal chronic superior endplate compression deformities of T3, T4, and T5. Vert ebral body height is otherwise maintained throughout the thoracic spine. Alignment is preserved. Mild to moderate levocurvature, centered at T8. The spinous processes appear intact. No destructive bony lesion is seen. Mild disc desiccation is seen throughout the thoracic spine. The disc spaces are main tained. There is a left posterior disc bulge at T6-T7 which mildly effaces the left aspect of the levar tral cord. This is best seen on sagittal image #10. The central canal is otherwise clear. The thoraci c spinal cord is normal in signal intensity. The conus medullaris terminates at the L1-L2 interspace. There is no evidence of high-grade neural foraminal stenosis throughout the thoracic region. The par aspinous soft tissues are normal as imaged. The lung parenchyma is grossly unremarkable but not well evaluated by MRI. IMPRESSION: 1. The thoracic spinal cord is normal in morphology and signal intensity. 2. A left posterior disc bulge at T6-T7 mildly effaces the left aspect of the ventral cord. 3. Minimal chronic compression deformities and scoliosis as above. 4. No destructive bony process is identified. Dictated: 08/06/2020 8:03 AM Transcribed: 08/06/2020 8:23 AM Taylor [id number] GISELL_Gloria Electronically signed by: Bill Benitez M.D. 08/06/2020 8:31 AM
[2020-08-06] MEDS: GLYCERIN ADULT 12 SUPP/BOX SUPP PR PRN (10:24)
--- NOTE | 2020-08-06 11:46 | Orthopedic Consultation ---
Date of Consultation August 06, 2020 Assessment & Plan (1) Posterior herniation of lumbar disc: At this time his symptoms do not correlate with findings on his lumbar MRI. I recommend he continue with his neurologic work-up. Is not a surgical candidate at this time. Present on Admission?: Yes History of Present Illness Reason for Consultation: Urinary changes and leg weakness Attending Physician: Nevaeh Owens, DO History of Present Illness This is a very pleasant 25-year-old male with a history of Kcevjty-Azwlz-Bkink syndrome. Presents with urinary changes numbness and tingling in the legs. He is undergone extensive work-up throughout his hospital stay. MRI lumbar spine was available for review. I am able to review it personally. Demonstrates degenerative disc disease to space collapse and disc condition at L5-S1. I was able to compare this to a CAT scan performed in 2018. It demonstrates a similar pattern. I do not appreciate any significant change. Allergies Allergy/AdvReac Type Severity Reaction Status Date / Time bee venom protein (honey bee) Allergy Unknown Difficulty Verified 08/01/20 22:38 Breathing peanut Allergy Unknown Skin Verified 08/01/20 22:38 reaction pollen extracts Allergy Unknown Unknown Verified 08/01/20 22:38 Home Medications Medication Instructions Recorded Confirmed Type cyclobenzaprine 10 mg PO TID PRN 07/17/19 08/01/20 History Ensure High Protein 1 ea PO TID 03/06/20 08/01/20 History albuterol sulfate 2 puff INHALATION QID PRN 03/06/20 08/01/20 History nystatin [Nystop] 1 applic TOPICAL BID 03/06/20 08/01/20 History oxybutynin chloride 15 mg PO DAILY 03/06/20 08/01/20 History cholecalciferol (vitamin D3) 1,250 mcg PO WK 04/01/20 08/01/20 History lorazepam 0.5 mg PO Q8H PRN 08/01/20 08/01/20 History polyethylene glycol 3350 [Miralax] 17 g PO DAILY PRN 08/01/20 08/01/20 History sertraline 100 mg PO DAILY 08/01/20 08/01/20 History tramadol [Ultram] 50 mg PO Q6H PRN 08/01/20 08/01/20 History trazodone 150 mg PO HS 08/01/20 08/01/20 History Patient History Medical History (Updated 08/05/20 @ 13:47 by Nevaeh Owens, DO) Abscess of groin, right Cellulitis of groin, right Xphpzxo-Crali-Yzhdc disease Glaucoma Surgical History No pertinent past surgical history Family History Other No known problems Social History Smoking Status: Current every day smoker Tobacco Type: Cigarettes Cigarettes Per Day: 4; Second Hand Exposure: No; Do You Dip or Chew Tobacco: No; Hx Alcohol Use: Yes Alcohol type: beer Hx Substance Use: Yes Last Used Substance: Days (ago) Last Used Substance Other:: Daily Preferred Language: Grenadian Communication Ability: Effective Electric Operator Required: No Beliefs That Will Affect Care: None marital status: single Current Living Situation: Family current occupational status: employed Feels Safe at Home: Yes Safety Concerns: Feels Safe At This Time Assistive Devices: Walker Physical Exam Physical Exam: On exam patient is in a wheelchair. He is alert and oriented. He has established deficits to lower extremities. Results & Data ([facility]) Vital Signs (Past 12 Hours) Vital Signs Temp Pulse Resp BP Pulse Ox 08/06/20 07:58 36.4 C L 59 L 16 113/68 95 08/06/20 07:00 65 16 97 08/06/20 00:01 36.4 C L 70 17 121/63 97
--- NOTE | 2020-08-06 13:09 | Progress Notes ---
DATE: 08/06/2020 SUBJECTIVE: I am seeing the patient in followup. He carries a diagnosis of CMT and has urinary retention over the last 1 year. He was admitted for an increase in back pain with an MRI of the L-spine with and without contrast being noncontributory and weakness in the lower extremities with increased numbness. The patient's effort and strength has been variable. He indicates that he was able to transfer to take a shower today and in shower chair. He thinks the numbness is a little higher up on his legs. There is no shortness of breath or difficulty with swallowing or orthostatic lightheadedness. His MRI brain, cervical and thoracic spine, which I have reviewed the imaging of were all unremarkable or noncontributory in terms of any paraparesis or etiology for neurogenic bladder. PHYSICAL EXAMINATION: The patient is seated in his room. He has his po computer set up with a joystick playing a flight simulation game. He is in no distress. There is normal extraocular motility, there appears to be some mild blepharospasm on the right. Eye closure is intact. Normal facial symmetry. Speech is not dysarthric or nasal. No neck flexor or extensor weakness. Jaw is fully strong. Tongue is fully strong. The hands are about 4/5. Otherwise, strength in the uppers are full. Lower extremity, the patient is at least antigravity at the quads and probably then some. On manual motor testing, he could barely get his legs off the bed, but then when I asked him to do some vfad-of-bumq, he was clearly antigravity with both iliopsoas. Spontaneously, he will not extend at the knee, but once extend him, his quads are about 4, right hamstring is 4, left hamstring about 3. The TAs are at least 3+ to 4, gastrocs about 3. He is areflexic throughout. Although he does not feel abrasion on the knees, he feels it on the fingertips and he has at least in some intact proprioception at the toes, which seems unusual given the absence of vibration sense at the knees. He indicates cold is reduced below the level of the upper thigh. No sensory loss is noted in the upper. IMPRESSION: This is a patient who was diagnosed with Uhycrim-Qkjeo-Rxaoj at age 3. His neurogenic bladder is not explained by a central etiology. Neurogenic bladder can be seen with Eggkphu-Pfrpv-Gucfl although it is quite rare. The patient's increase in weakness and numbness of unclear etiology, making it furthermore difficult is the fact that his exam fluctuates. He was walking yesterday with a walker when he spontaneously is asked to move his legs he will do so with his hands. He is clearly stronger than he believes that he is. The plan is to monitor. He seems stronger than he had. I do not see any evidence of autonomic dysfunction. Dr. Owens was in touch with [facility] and they recommended doing a lumbar puncture on Saturday provided the patient was stable. They thought giving some time to allow the CSF to show any changes that might occur was reasonable. I encouraged the patient to continue to try to ambulate. I would recommend consideration of DVT prophylaxis provided he is no longer having hematuria. We will follow with you. ARMANDO
--- NOTE | 2020-08-06 15:50 | Hospitalist Progress Note ---
Date of Service August 06, 2020 Assessment & Plan (1) Acute urinary retention: Has chronic neurogenic bladder and takes Ditropan for overactive blader issues at night. Recently failed a TOV with replacement of Zavala and ditropan was held. Will repeat a TOV again tonight. If again retaining, will have patient followup in Uro office for TOV. . (2) Weakness: Uncertain etiology. Initial concern for acute neurologic process is passing as patient is walking more now and not progressing. Was especially concerned in light of recent covid vaccination prior to symptom onset. No indication for inpatient transfer at this time. 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 Patient doesn't remember of any specific treatment that was helpful. He is interested in seeing a CMT specialist regarding current issues. (4) Acute flank pain: Initially thought to be related to possible UTI/pyelo, however, UA/UCx is coming up negative. Abx discontinued. No back pain reported today. Transfer inpatient to [facility] has been declined. Dr Jackson is [facility] Neurologist specializing in neurophysiology and I discussed the case and he will follow Edward as outpatient. (5) Hematuria: This has resolved. No presence of infection. Defer to Urology for any need of further investigation into this, however, hematuria was clearly seen when patient was undergoing self-instrumentation possibly under the influence of marijuana which may have caused a traumatic catheterization. Will discuss plan with Urology further. 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 Sees outpatient ophthalmology regularly. (7) Posterior herniation of lumbar disc: Ortho spine consult placed but this is less likely the issue as he was able to walk today. No reports of radiculopathy with movement. (8) Tobacco use: strongly advised to quit vaping marijuana substances. Verbalized understanding of the hazards. (9) DVT prophylaxis: Lovenox Full Code Dispo-weakness must improve. PT currently recommending acute rehab program. Patient is declining this and working hard to get back home. Nevaeh Owens DO [facility] Hospitalist Admission and Anticipated Discharge Date Admission Date: August 02, 2020 Subjective 25 yo DMT patient with worsening weakness and difficulty ambulating he has been able to wlak with assistance and has had rock solid NIF vital capacities per respiratory in the past 24 hours Patient not sure he is improving much weakness in LE is the same he reports a goal of "walking by Wed" at least to the nurses station we discussed a TOV patient assisted with his last Zavala placement and was instructed this may contaminate an indwelling catheter. He verbalized understanding and vowed not to assist in the future Denies pain today Feels fatigued and reports not sleeping much had a BM eating well Review of Systems Review of Systems: All systems reviewed & are unremarkable except as noted in Subjective Physical Exam Physical Exam: CONSTITUTIONAL: WNWD, vitals as above, generally well- appearing EYES: normal conjunctivae, normal sclerae ENT: external ear and nose normal, MMM RESPIRATORY: clear to auscultation bilaterally, no crackles, rales or wheezes, normal respiratory effort CARDIOVASCULAR: regular rate and rhythm, S1 and 2 heard without murmurs, gallops or rubs, no JVD, no peripheral edema GASTROINTESTINAL: soft, nontender, nondistended, no guarding MUSCULOSKELETAL: decreased strength in lower extremities bilaterally, IMPROVED SINCE YESTERDAY-appears to be 5/5 bilaterally. 5/5 dorsi and plantarflexion bilaterally slightly worse on the left foot. Gait not assessed. head is normocephalic and atraumatic SKIN: warm and dry NEUROLOGIC: No facial palsy, no dysarthria. Some right eye lateral deviation at rest. +sensory deficits(numbness) in bilateral lower extremities to level of mid thighs-same as yesterday. Normal cognition, normal speech, no tremor PSYCHIATRIC: alert cooperative and oriented to person, place and time. Results & Data Results & Data ([facility]) Vital Signs (Past 12 Hours) Vital Signs Temp Pulse Resp BP Pulse Ox 08/06/20 15:18 74 16 97 08/06/20 07:58 36.4 C L 59 L 16 113/68 95 08/06/20 07:00 65 16 97 Medications Administered Current Inpatient Medications Acetaminophen (Acetaminophen 500 Mg Tab) 500 mg PO Q4HWA PRN PRN Reason: pain/fever Stop: 09/01/20 11:59 Last Admin: 08/06/20 07:41 Dose: 500 mg Documented by: Albuterol (Albuterol Hfa 8 Gm Inhaler) 2 puffs INH QID PRN PRN Reason: Shortness Of Breath Or Wheezing Stop: 09/01/20 03:33 Cyclobenzaprine HCl (Cyclobenzaprine Hcl 10 Mg Tab) 10 mg PO TID PRN PRN Reason: Muscle Spasm Stop: 09/01/20 03:56 Docusate Sodium (Docusate Sodium 100 Mg Cap) 100 mg PO BID PRN PRN Reason: Constipation Stop: 09/01/20 19:31 Last Admin: 08/05/20 07:49 Dose: 100 mg Documented by: Ergocalciferol (Ergocalciferol 50,000 Units 1250 Mcg Cap) 50,000 units PO Th@0900 [facility] Stop: 09/03/20 08:59 Last Admin: 08/04/20 08:05 Dose: 50,000 units Documented by: Glycerin (Glycerin Adult 12 Supp/Box Supp) 1 supp MO DAILY PRN PRN Reason: Constipation Stop: 09/04/20 10:14 Last Admin: 08/06/20 10:24 Dose: 1 supp Documented by: Promethazine HCl 12.5 mg/ (Sodium Chloride) 50.5 mls @ 202 mls/hr IV Q6H PRN PRN Reason: Nausea And Vomiting Stop: 09/02/20 20:19 Last Infusion: 08/03/20 21:14 Dose: Infused Documented by: Lorazepam (Lorazepam 0.5 Mg Tab) 0.5 mg PO Q8H PRN PRN Reason: Anxiety Stop: 09/01/20 03:33 Last Admin: 08/05/20 21:35 Dose: 0.5 mg Documented by: Miscellaneous (Remove Nicoderm Patch) 1 ea N/A DAILY@0859 [facility] Stop: 09/02/20 08:58 Last Admin: 08/06/20 07:30 Dose: 1 ea Documented by: Morphine Sulfate (Morphine Sulfate 4 Mg/Ml 1 Ml Carp\\Vial) 4 mg IV Q4H PRN PRN Reason: Severe Pain Stop: 08/16/20 12:24 Last Admin: 08/04/20 22:40 Dose: 4 mg Documented by: Nicotine (Nicotine 21 Mg/24 Hr Tdsy) 21 mg TD QAM [facility] Stop: 09/01/20 12:29 Last Admin: 08/06/20 07:33 Dose: 21 mg Documented by: Nystatin (Nystatin Powder 15gm Btl) 1 appln EXT BID [facility] Stop: 09/01/20 08:59 Last Admin: 08/06/20 07:28 Dose: Not Given Documented by: Ondansetron HCl (Ondansetron Inj 2 Mg/Ml 2 Ml Vial) 4 mg IV Q8H PRN PRN Reason: Nausea Stop: 09/02/20 11:58 Last Admin: 08/05/20 20:57 Dose: 4 mg Documented by: Oxybutynin Chloride (Oxybutynin Chloride Xl 5 Mg Tabcr) 15 mg PO DAILY YAKOV Stop: 09/01/20 08:59 Last Admin: 08/04/20 07:39 Dose: 15 mg Documented by: Oxycodone HCl (Oxycodone Hcl Ir 5 Mg Tab (Immediate Release)) 5 mg PO Q4H PRN PRN Reason: Pain Stop: 08/16/20 12:18 Last Admin: 08/04/20 12:53 Dose: 5 mg Documented by: Polyethylene Glycol (Polyethylene (Miralax) 17 Gm Pack) 17 gm PO DAILY PRN PRN Reason: Constipation Stop: 09/01/20 03:33 Last Admin: 08/05/20 14:38 Dose: 17 gm Documented by: Polyethylene Glycol (Polyethylene (Miralax) 17 Gm Pack) 17 gm PO DAILY YAKOV Stop: 09/02/20 08:59 Last Admin: 08/06/20 07:33 Dose: 17 gm Documented by: Sennosides (Senna 8.6 Mg Tab) 17.2 mg PO PM YAKOV Stop: 09/01/20 20:59 Last Admin: 08/05/20 21:37 Dose: 17.2 mg Documented by: Sertraline HCl (Sertraline Hcl 100 Mg Tablet) 100 mg PO DAILY YAKOV Stop: 09/01/20 08:59 Last Admin: 08/06/20 07:35 Dose: 100 mg Documented by: Trazodone HCl (Trazodone Hcl 50 Mg Tab) 150 mg PO HS YAKOV Stop: 09/01/20 20:59 Last Admin: 08/05/20 22:12 Dose: 150 mg Documented by:
[2020-08-06] MEDS: ENOXAPARIN INJ 40 MG/0.4 ML SYR SQ SCH (18:44)
[2020-08-06] MEDS: CYCLOBENZAPRINE HCL 10 MG TAB PO PRN (19:42)
[2020-08-06] MEDS: SENNA 8.6 MG TAB PO SCH (21:56)
[2020-08-06] MEDS: traZODone HCL 50 MG TAB PO SCH (21:57)
[2020-08-07] MEDS: NYSTATIN POWDER 15GM BTL EXT SCH (07:36)
[2020-08-07] MEDS: NICOTINE 21 MG/24 HR TDSY TD SCH (08:32)
[2020-08-07] MEDS: DOCUSATE SODIUM 100 MG CAP PO PRN (08:33)
[2020-08-07] MEDS: SERTRALINE HCL 100 MG TABLET PO SCH (08:33)
[2020-08-07] MEDS: ACETAMINOPHEN 500 MG TAB PO PRN ×2 (08:33→21:48)
[2020-08-07] MEDS: ALBUTEROL HFA 8 GM INHALER INH PRN ×2 (11:09→19:07)
[2020-08-07] MEDS ORDERED: MoRPHine SULFATE 2 MG/ML CARP IV STA (11:22)
[2020-08-07] MEDS ORDERED: NYSTATIN POWDER 15GM BTL EXT PRN (11:46)
--- NOTE | 2020-08-07 11:57 | Hospitalist Progress Note ---
Date of Service August 07, 2020 Assessment & Plan (1) Chest pain: Uncertain etiology, however, patient has been having unconnected aches and pains. Possibly related to CMT? No evidence of ACS. Onset was after wheeling in wheelchair. Concern for possible substance abuse brought in bag from home. Urine drug screen performed with marijuana as expected per patient report, opiate as expected per administration in hospital, and ecstasy positive, however other medications mimic this on a drug screen. No surprising findings. Continue supportive care and allow time for this to dissipate. Consider consultation with cardiology if not improved. Chest CT negative for blood clot and no evidence of dilation of the thoracic aorta. (2) Acute urinary retention: Has chronic neurogenic bladder and takes Ditropan for overactive blader issues at night. Recently failed a TOV with replacement of Zavala and ditropan was held. Failed a repeat trial of void off oxybutynin within approximately 2 to 3 hours. He will need to follow-up with urology in the office as outpatient. (3) Weakness: Uncertain etiology. Initial concern for acute neurologic process is passing as patient is walking more now and not progressing. Was especially concerned in light of recent covid vaccination prior to symptom onset. No indication for inpatient transfer at this time. 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 Patient doesn't remember of any specific treatment that was helpful. He is interested in seeing a CMT specialist regarding current issues. (5) Acute flank pain: Initially thought to be related to possible UTI/pyelo, however, UA/UCx is coming up negative. Abx discontinued. No back pain reported today. Transfer inpatient to [facility] has been declined. Dr Jackson is [facility] Neurologist specializing in neurophysiology and I discussed the case and he will follow Edward as outpatient. (6) Hematuria: This has resolved. No presence of infection. Defer to Urology for any need of further investigation into this, however, hematuria was clearly seen when patient was undergoing self-instrumentation possibly under the influence of marijuana which may have caused a traumatic catheterization. Will need to discuss plan with urology prior to discharge. 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 Sees outpatient ophthalmology regularly. (8) Posterior herniation of lumbar disc: Ortho spine consult placed but this is less likely the issue as he was able to walk today. No reports of radiculopathy with movement. Herniated disc is not connected to current symptomatology. Discussed case with neuro. (9) Tobacco use: strongly advised to quit vaping marijuana substances. Verbalized understanding of the hazards. (10) DVT prophylaxis: Lovenox Full Code Dispo-weakness must improve. PT currently recommending acute rehab program. Patient is declining this and working hard to get back home. Uncertain how this will change with onset of chest pain. Patient is especially interested in transferring to [facility], however transfer has been declined multiple times. A lumbar puncture is ordered for a.m. to rule out elevated protein in CSF which would support the possibility objectively of an autoimmune neuropathy such as Guillain-Harris syndrome. If protein is elevated in CSF, consider contacting [facility] for immediate transfer after discussion with neurology team. If not and patient is able to walk/ambulate well enough to go home, consider discharge to home so patient may follow-up as outpatient in the clinic with specialist Dr. Edward Jackson, an [facility] specialist in neurophysiology. Nevaeh Owens DO [place] Hospitalist Admission and Anticipated Discharge Date Admission Date: August 02, 2020 Subjective 25 yo CMT patient with worsening weakness and difficulty ambulating Today patient reports new onset chest pressure in the center of his chest without radiation that began while he was wheeling in his wheelchair up to the nurses station this morning. He had just eaten a full breakfast of oatmeal and coffee. After the chest pressure came on he still then pushed himself to [facility] to wheel himself back to his room. He was subsequently given morphine without relief and additional pain medications were given. He was given an albuterol treatment as he reported slight shortness of breath, however, he did not appear winded on bedside arrival despite recently transitioning from wheelchair to bed. He was not tachycardic. EKG was sinus rhythm without evidence of ischemia. Troponin was negative. When the morphine did not help ease the pain there was concern he had been hospitalized for several days without DVT prophylaxis and PE was considered although less likely. His CT chest with contrast was performed revealing no evidence of pulmonary embolism and further commented that no thoracic aortic dilation was present. There was also no evidence of focal pulmonary consolidation. Review of Systems Review of Systems: All systems reviewed & are unremarkable except as noted in Subjective Physical Exam Physical Exam: CONSTITUTIONAL: WNWD, vitals as above, generally well- appearing, no acute distress EYES: normal conjunctivae, normal sclerae ENT: external ear and nose normal, MMM RESPIRATORY: clear to auscultation bilaterally, no crackles, rales or wheezes, normal respiratory effort CARDIOVASCULAR: regular rate and rhythm, S1 and 2 heard without murmurs, gallops or rubs, no JVD, no peripheral edema GASTROINTESTINAL: soft, nontender, nondistended, no guarding MUSCULOSKELETAL: Appears to have minimum 4 out of 5 strength in both knee flexion and extension as well as hip flexion lying supine. Also 4 out of 5 strength in dorsi and plantar flexion bilaterally. Head is normocephalic and a traumatic SKIN: warm and dry NEUROLOGIC: No facial palsy, no dysarthria. Some right eye lateral deviation at rest. +sensory deficits(numbness) in bilateral lower extremities to level of mid thighs-same as yesterday without progression. Normal cognition, normal speech, no tremor PSYCHIATRIC: alert cooperative and oriented to person, place and time. Results & Data Results & Data ([facility]) Vital Signs (Past 12 Hours) Vital Signs Temp Pulse Pulse Resp BP BP Pulse Ox 08/07/20 11:09 74 16 98 08/07/20 11:01 36.5 C 89 17 117/79 95 08/07/20 07:03 36.4 C L 69 16 111/68 97 08/07/20 05:43 64 109/58 L Laboratory Results Short CBC 08/07/20 Range/Units 12:28 WBC 9.05 (4.8-10.8) K/uL Hgb 15.5 (14.0-18.0) g/dL Hct 44.9 (42-52) % Plt Count 184 (130-400) K/uL BMP 08/07/20 12:28 Sodium 140 Potassium 4.1 Chloride 107 Carbon Dioxide 28 BUN 20 H Creatinine 0.85 Glucose 101 H Calcium 9.1 Cardiac Enzymes 08/07/20 Range/Units 12:28 Troponin I < 0.015 (0-0.045) ng/ml Medications Administered Current Inpatient Medications Acetaminophen (Acetaminophen 500 Mg Tab) 500 mg PO Q4HWA PRN PRN Reason: pain/fever Stop: 09/01/20 11:59 Last Admin: 08/07/20 08:33 Dose: 500 mg Documented by: Albuterol (Albuterol Hfa 8 Gm Inhaler) 2 puffs INH QID PRN PRN Reason: Shortness Of Breath Or Wheezing Stop: 09/01/20 03:33 Last Admin: 08/07/20 11:09 Dose: 2 puffs Documented by: Cyclobenzaprine HCl (Cyclobenzaprine Hcl 10 Mg Tab) 10 mg PO TID PRN PRN Reason: Muscle Spasm Stop: 09/01/20 03:56 Last Admin: 08/06/20 19:42 Dose: 10 mg Documented by: Docusate Sodium (Docusate Sodium 100 Mg Cap) 100 mg PO BID PRN PRN Reason: Constipation Stop: 09/01/20 19:31 Last Admin: 08/07/20 08:33 Dose: 100 mg Documented by: Enoxaparin Sodium (Enoxaparin Inj 40 Mg/0.4 Ml Syr) 40 mg SQ Q24H [facility] Stop: 09/05/20 17:44 Last Admin: 08/06/20 18:44 Dose: 40 mg Documented by: Ergocalciferol (Ergocalciferol 50,000 Units 1250 Mcg Cap) 50,000 units PO Th@0900 [facility] Stop: 09/03/20 08:59 Last Admin: 08/04/20 08:05 Dose: 50,000 units Documented by: Glycerin (Glycerin Adult 12 Supp/Box Supp) 1 supp SD DAILY PRN PRN Reason: Constipation Stop: 09/04/20 10:14 Last Admin: 08/06/20 10:24 Dose: 1 supp Documented by: Lorazepam (Lorazepam 0.5 Mg Tab) 0.5 mg PO Q8H PRN PRN Reason: Anxiety Stop: 09/01/20 03:33 Last Admin: 08/05/20 21:35 Dose: 0.5 mg Documented by: Miscellaneous (Remove Nicoderm Patch) 1 ea N/A DAILY@0859 [facility] Stop: 09/02/20 08:58 Last Admin: 08/07/20 08:38 Dose: 1 ea Documented by: Nicotine (Nicotine 21 Mg/24 Hr Tdsy) 21 mg TD QAM [facility] Stop: 09/01/20 12:29 Last Admin: 08/07/20 08:32 Dose: 21 mg Documented by: Nystatin (Nystatin Powder 15gm Btl) 1 appln EXT BID PRN PRN Reason: itching/irritation groin Stop: 09/01/20 08:59 Ondansetron HCl (Ondansetron Inj 2 Mg/Ml 2 Ml Vial) 4 mg IV Q8H PRN PRN Reason: Nausea Stop: 09/05/20 17:16 Polyethylene Glycol (Polyethylene (Miralax) 17 Gm Pack) 17 gm PO DAILY PRN PRN Reason: Constipation Stop: 09/01/20 03:33 Last Admin: 08/05/20 14:38 Dose: 17 gm Documented by: Sennosides (Senna 8.6 Mg Tab) 17.2 mg PO PM YAKOV Stop: 09/01/20 20:59 Last Admin: 08/06/20 21:56 Dose: 17.2 mg Documented by: Sertraline HCl (Sertraline Hcl 100 Mg Tablet) 100 mg PO DAILY YAKOV Stop: 09/01/20 08:59 Last Admin: 08/07/20 08:33 Dose: 100 mg Documented by: Trazodone HCl (Trazodone Hcl 50 Mg Tab) 150 mg PO HS YAKOV Stop: 09/01/20 20:59 Last Admin: 08/06/20 21:57 Dose: 150 mg Documented by:
--- NOTE | 2020-08-07 12:06 | Progress Notes ---
DATE: 08/07/2020 SUBJECTIVE: I am seeing Mr. Donald in followup of CMT and a history of neurogenic bladder, weakness has increased, which was a part of the reason for admission including patient had not voided and had hematuria. The patient ambulated yesterday in the room with physical therapy and a walker. According to Dr. Owens, he was also able to take a shower yesterday, although I am assuming that was in a shower chair, but he was able to transfer. The patient has been wheeling himself around the floor. He indicates that he feels a pressure in his chest, perhaps mildly short of breath. He tells me that he felt weaker, although he indicates to Dr. Owens that he does not feel weaker that the chest is the issue. PHYSICAL EXAMINATION: A new set of vitals were performed; blood pressure 117/79, pulse was 74, respirations 16, temperature 36.5, 98% on room air. The patient was in no acute respiratory distress. He could count into the 20s on one breath. He appeared a little tired., but not neuromuscularly weak. Normal extraocular motility. Normal eye closure. No nasality of speech. No jaw weakness. No neck flexor weakness. His strength remained unchanged in the uppers. There is a component of give-way. He has mild weakness in the intrinsic hand muscles. Lower extremities are greater than antigravity. Iliopsoases are at best 3+. The quads are about 4, hamstrings about the same. The TAs at best are 4. Tone is unchanged. He is areflexic. There is a sensory level to the upper thigh. Lungs are clear. No calf swelling or tenderness is noted. IMPRESSION: This patient has [id number]-Pptss-Vmlxe and a neurogenic bladder. Admitted for increased urinary retention and hematuria. He noted increased LE weakness. He has a new complaint of a pressure in his chest. Vitals are stable. By report, the negative inspiratory force and forced vital capacity were normal. EKG is normal. The patient's strength appears to be unchanged. An acute inflammatory neuropathy is withing the differential, althouth the pt strength is better than described by Dr Navarro on admission which would be unusual. The pt reports a similar episode 5 years ago for which he was admitted to [facility] with a negative work-up. PLAN: The patient will be moved to a monitored bed with more frequent test of pulmonary parameters due to his complaint of chest pressure. . We will monitor for objective change in pulmonary function and strength. Dr. Owens and I discussed this at length. I still think the patient will need a lumbar puncture tomorrow. The lumbar puncture is looking for evidence of an inflammatory neuropathy such as AIDP. If the patient is objectively different or having progressive pulmonary dysfunction, he will need to be transferred to a tertiary care center. At present, I do not feel that that is necessary. We will follow with you. ARMANDO
[2020-08-07 12:51] LABS: Amphetamines+Metham, Urine Neg (Neg); Barbiturates, Urine Neg (Neg); Benzodiazepine, Urine Neg (Neg); Cocaine, Urine Neg (Neg); MDMA (Ecstacy), Urine Pos (Neg); Methadone, Urine Neg (Neg); Opiate, Urine Pos (Neg); Phencyclidine, Urine Neg (Neg)
[2020-08-07 12:53] LABS: Basophils # (auto) 0.04 K/uL (0-0.2); Basophils % (auto) 0.4 %; Eosinophils # (auto) 0.32 K/uL (0-0.5); Eosinophils % (auto) 3.5 %; Hematocrit (blood only) 44.9 % (42-52); Hemoglobin 15.5 g/dL (14.0-18.0); Immature Granulocytes # (auto) 0.02 K/uL (0.00-0.02); Immature Granulocytes % (auto) 0.2 %; Lymphocytes # (auto) 2.35 K/uL (1.2-3.4); Mean Corpuscular Hemoglobin 28.5 pg (25-34); Mean Corpuscular Hgb Conc 34.5 g/dL (32-36); Mean Corpuscular Volume 82.5 fL (80-100); Mean Platelet Volume 9.8 fL (7.4-10.4); Monocytes # (auto) 0.52 K/uL (0.11-0.59); Monocytes % (auto) 5.7 %; Neutrophils % (auto) 64.2 %; Platelet Count 184 K/uL (130-400); RDW Coefficient of Variation 13.3 % (11.5-14.5); RDW Standard Deviation 39.9 fL (36.4-46.3); Red Blood Count 5.44 M/uL (4.7-6.1); White Blood Count 9.05 K/uL (4.8-10.8)
[2020-08-07 12:55] LABS: BUN Creatinine Ratio 23.5 (10-20); Blood Urea Nitrogen 20 mg/dl (7-18); Calcium 9.1 mg/dl (8.5-10.1); Carbon Dioxide 28 mmol/L (21-32); Chloride 107 mmol/L (98-107); Creatinine Clr Calc Pharmacy 105.2 ml/min; Est GFR (African American) 140.4; Est GFR (Non-African American) 121.1; Glucose 101 mg/dl (70-99); Potassium 4.1 mmol/L (3.5-5.1); Sodium 140 mmol/L (136-145)
[2020-08-07 12:59] LABS: Troponin I < 0.015 ng/ml (0-0.045)
[2020-08-07] MEDS ORDERED: OPTIRAY 320 125ml IV ONE (14:01)
--- NOTE | 2020-08-07 14:34 | CT Scan Report ---
CT ANGIOGRAM OF THE CHEST CLINICAL HISTORY: Atypical chest pain. Possible pulmonary embolism COMPARISON STUDY: CT scan dated 05/24/2018 TECHNIQUE: Following the IV administration of 118 mL of Optiray-320, CT angiogram of the thorax was p erformed from the thoracic inlet to the lung bases utilizing the pulmonary embolus protocol. Images a re reviewed in the axial, sagittal, and coronal planes. IV contrast was administered without complica tion. MIP imaging was performed. A dose lowering technique was utilized adhering to the principles o f ALARA. CT DOSE: 254.61 mGy.cm FINDINGS: No pathologically enlarged axillary mediastinal or hilar lymph nodes were visualized. There was no evidence of thoracic aortic dilatation. There were no pulmonary artery filling defects to indicate acute pulmonary embolism. No pleural effusions are visualized. There was no evidence of focal pulmonary consolidation. There is a stable 4 mm left upper lobe pulmon letty nodule. This is felt to be benign. The study is compromised due to respiratory motion artifact particularly at the lung bases. There is a thoracic scoliosis. IMPRESSION: 1. Motion compromised study 2. No evidence of acute pulmonary embolism 2. No evidence of focal pulmonary consolidation ACT 112: Negative or not required by law. Electronically signed by: Fortino De La Rosa M.D. 08/07/2020 2:33 PM
[2020-08-07] MEDS: CYCLOBENZAPRINE HCL 10 MG TAB PO PRN (15:27)
[2020-08-07] MEDS: MoRPHine SULFATE 2 MG/ML CARP IV PRN (18:06)
[2020-08-07] MEDS: ENOXAPARIN INJ 40 MG/0.4 ML SYR SQ SCH (18:34)
[2020-08-07] MEDS: SENNA 8.6 MG TAB PO SCH (20:55)
[2020-08-07] MEDS: ONDANSETRON INJ 2 MG/ML 2 ML VIAL IV PRN (21:16)
[2020-08-07] MEDS: traZODone HCL 50 MG TAB PO SCH (22:29)
--- NOTE | 2020-08-07 22:39 | Communication Note ---
Date of Service: August 07, 2020 Notified by RN of patient request to talk to nighttime hospitalist. Patient requesting to transfer to [facility] tonight. Patient feels [facility] not able to provide level of care necessary for his worsening weakness/neuropathy. As per patient, he will request to be discharged in the morning from [facility] to go to [facility] ER on his own if hospital to hospital transfer not possible. After discussing case with morning provider and neurologist bonsai culturist, I called [facility] transfer center ([phone]) to coordinate transfer to [facility] Neurology service as per patient request. Case discussed with Dr. Hollingsworth ([facility] neurologist bonsai culturist). Provider familiar with patient case following earlier conversation with Dr. Owens (morning hospitalist) a few days ago when patient initially requested to be transferred to [facility]. [facility] transfer center stipulated need for insurance preauthorization prior to facility transfer as per patient request. In the meantime, Dr. Hollingsworth recommends proceeding with scheduled diagnostic LP in a.m. and morning provider to coordinate transfer with [facility] neurologist bonsai culturist once insurance preauthorization secured by [facility] case management. Patient updated of developments at bedside and agreeable with plan of care for now.
--- NOTE | 2020-08-08 05:43 | Electrocardiogram Report ---
Test Reason : Blood Pressure : / mmHG Vent. Rate : 068 BPM Atrial Rate : 068 BPM P-R Int : 126 ms QRS Dur : 078 ms QT Int : 386 ms P-R-T Axes : 044 096 075 degrees QTc Int : 410 ms Normal sinus rhythm Rightward axis Borderline ECG When compared with ECG of 01-AUG-2020 21:49, Nonspecific T wave abnormality no longer evident in Inferior leads T wave inversion no longer evident in Anterior leads Confirmed by Ra Pablo ([id number]) on 08/08/2020 5:42:48 AM Referred By: REFERRED SELF Confirmed By:Ra Pablo
[2020-08-08] MEDS: LORazepam 0.5 MG TAB PO PRN (08:08)
[2020-08-08] MEDS ORDERED: ACETAMINOPHEN 500 MG TAB PO PRN (08:49)
[2020-08-08] MEDS: CYCLOBENZAPRINE HCL 10 MG TAB PO PRN (09:08)
[2020-08-08] MEDS: NICOTINE 21 MG/24 HR TDSY TD SCH (09:09)
[2020-08-08] MEDS: SERTRALINE HCL 100 MG TABLET PO SCH (09:09)
[2020-08-08 09:15] LABS: CSF Chemistry Tube # 1
--- NOTE | 2020-08-08 09:26 | Fluoroscopy Report ---
FLUOROSCOPICALLY GUIDED LUMBAR PUNCTURE CLINICAL HISTORY: concern for acute LE weakness, ?autoimmune neuropathy. FLUOROSCOPY TIME: 0.3 minutes NUMBER OF FLUOROSCOPIC IMAGES: 1 PROCEDURE: The procedure, risks and benefits were discussed with the patient including the risk of s lakeisha headache, bleeding and infection. The patient agreed to the procedure and informed written cons ent was obtained. The procedure was performed by Dr. Knapp following a timeout. The right L4-L5 i nterlaminar space was targeted. Skin overlying the space was prepped and draped in sterile fashion an d local anesthesia was achieved with 1% lidocaine. Under intermittent fluoroscopic guidance, a 3 1/2 inch, 22-gauge spinal needle was directed into the thecal sac with immediate return of clear CSF. A t otal of 8 cc of cerebrospinal fluid was collected in 4 vials and sent to laboratory for analysis as o rdered. The needle was removed. The patient tolerated the procedure well and no immediate complicatio ns were evident. IMPRESSION: Successful fluoroscopically guided lumbar puncture with collection of 8 cc of clear cerebrospinal flu id which was sent to the laboratory for analysis as ordered. ACT 112: Negative or not required by law. Electronically signed by: Russell Knapp M.D. 08/08/2020 9:25 AM
[2020-08-08 09:37] LABS: CSF Glucose 58 mg/dl (40-70); Total Protein CSF 154.8 mg/dl (15-45)
[2020-08-08 10:56] LABS: CSF Count Tube # 3
[2020-08-08 10:57] LABS: Appearance CSF CLEAR; CSF Xanthrochromic NO; Color CSF COLORLESS; Red Blood Cell CSF (A) 1 /uL (0-); White Blood Cell CSF (A) 2 /uL (0-5)
--- NOTE | 2020-08-08 16:47 | Hospitalist Progress Note ---
Date of Service August 08, 2020 Assessment & Plan (1) Chest pain: Patient have had episode of chest tightness. EKG has been nonischemic. Cardiac enzymes have been negative. Urine tox was positive for marijuana/opiates and ecstasy. We will continue supportive management. CT PE study was negative for any pulmonary embolism or aneurysm. (2) Acute urinary retention: Patient has history of chronic neurogenic bladder and does straight cath at home at bedtime. Reports his primary reason for coming to the hospital was because he was having urinary retention usually his baseline is he would have urinary incontinent and before going to bed he would cath himself to void any wet briefs overnight. Ditropan is being held. He failed voiding trial being off oxybutynin. Zavala catheter was placed. Patient will need to follow-up with urology as an outpatient. (3) Weakness: Patient presented with bilateral lower extremity weakness that has been progressively getting worse to the patient. He states that he has had similar episode roughly 5 years ago when he was seen at [facility] in [place]. He does not know what he was diagnosed with but symptoms resolved after 5 days. He also spoke with the mother today states that he was diagnosed with conversion disorder by psychiatrist at that time. Patient and the mother reports that recently for the past 3 weeks he has been under a lot of stress due to various reasons with his job and contributing that this is possibly another episode which was previously observed 5 years ago. Patient has requested multiple times to be transferred to [facility]. Prior to me to physicians have spoken with [facility] neurologist Dr. Hollingsworth. Due to no acute indication, patient would need preinsurance authorization prior to being transferred to [facility]. He is awaiting insurance authorization. Neurology is also on board. Patient wants to go for lumbar puncture today. MRI of the brain, cervical/thoracic/lumbar spine MRI have been negative for any acute findings. Of note, patient has been accepted by [facility]. Currently awaiting placement. I discussed the LP findings with Dr. 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 (5) Acute flank pain: Initially thought to be related to possible UTI/pyelo, however, UA/UCx is coming up negative. (6) Hematuria: This has resolved. No presence of infection. Defer to Urology for any need of further investigation into this, however, hematuria was clearly seen when patient was undergoing self-instrumentation possibly under the influence of marijuana which may have caused a traumatic catheterization. Patient will need to follow-up with urology as an outpatient. 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 Sees outpatient ophthalmology regularly. (8) Posterior herniation of lumbar disc: Appreciate orthospine input. No indication for any intervention. Plan to continue with neurological work-up. (9) Tobacco use: Counseled (10) DVT prophylaxis: Lovenox Full Code Patient discussed the possibility of getting discharged and himself going to [facility] however I advised the patient that I cannot charge him given his ongoing medical issues. I explained him the risks of leaving AGAINST MEDICAL ADVICE. Patient and the mother understood. Admission and Anticipated Discharge Date Admission Date: August 02, 2020 Subjective Patient is doing okay overall. However he appears upset at the overall situation and being at [facility] not being able to get transferred to [facility]. Reports he is feeling worse than he came in with. Reports his weakness is worse. Chest tightness is improved but have had intermittent episodes. Denies any chest pain or any cough. Denies any shortness of breath. Denies any abdominal pain, diarrhea or any dizziness. Reports headache. Review of Systems Review of Systems: All systems reviewed & are unremarkable except as noted in HPI & below Physical Exam Physical Exam: General: A&Ox3. Appears agitated HENT: NCAT, MMM, EOMI Eyes: PERRLA Neck: Supple, normal range of motion CVS: normal rate and rhythm Resp: b/l good breath sounds Abdomen: Soft, nondistended nontender Extremities: Bilateral lower extremities weakness appreciated, no sensation above bilateral ankles Skin: warm and dry MSK: normal ROM, no joint swelling/erythema Zavala catheter in place. Results & Data Results & Data ([facility]) Vital Signs (Past 12 Hours) Vital Signs Temp Pulse Pulse Resp BP Pulse Ox Pulse Ox 08/08/20 16:00 36.6 C 80 18 114/73 97 08/08/20 15:00 100 08/08/20 11:51 36.5 C 70 18 105/64 100 08/08/20 08:06 36.6 C 64 18 106/67 94 08/08/20 07:47 63 16 94 08/08/20 07:45 55 L
[2020-08-08] MEDS: ENOXAPARIN INJ 40 MG/0.4 ML SYR SQ SCH (18:04)
[2020-08-08] MEDS: MoRPHine SULFATE 2 MG/ML CARP IV PRN (19:04)
--- NOTE | 2020-08-08 19:09 | Progress Notes ---
DATE: 08/08/2020 SUBJECTIVE: I am seeing Mr. Donald in followup. He has a history of CMT and a neurogenic bladder. He has been in our hospital initially because of back pain and hematuria, but has developed weakness. The weakness has varied throughout the admission. Yesterday, he had some chest pressure, which resolved. His pulmonary parameters were normal as were an EKG and his vitals. That has resolved. He had a lumbar puncture today, which he tolerated well fortunately. He had been concerned that he would need conscious sedation. It showed 3 cells, glucose was 58, total protein was 158. Gram stain is negative. Culture is pending. PHYSICAL EXAMINATION: VITAL SIGNS: 114/73, 80, 18, 36.6, 97%. The patient is awake and alert. Speech and language are normal. Affect is as one would describe labile and . He is in no distress. Able to count past 40 on one breath. 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 Normal eye closure. No neck flexor or extensor fatigue or weakness. No jaw weakness. Tongue protrusion is full. There is minimal weakness in the intrinsic muscles of the hands. Lower extremities, the iliopsoases with coaching are about 3+. The quads are about 4 to 4-. The hamstrings about 4. The TAs, although there is a foot drop at rest, he can activate almost to a 4 and the gastrocs are probably best 3. He has a level to temperature in the upper thigh. His reflexes are absent throughout. There is no christopher dystaxia on rcqojp-di-zyee and on sjtu-fm-wbis. Considering his weakness, he does reasonably well. IMPRESSION AND RECOMMENDATIONS: This patient carries a diagnosis of Sucpfgc-Qavih-Pbfqh since age 3. At some point, genetic testing would be very appropriate to determine what type of Kwjmava-Hymla-Tqand and so that we may accurately have a sense of what are the associations. Neurogenic bladder is unusual in this setting. His peralta spine, brain, cervical, thoracic and lumbosacral spine revealed no reason for him to have a neurogenic bladder. Personally, I am not aware of the results of systemetrics, i.e. is their lower upper motor neuron dysfunction. This patient reports an increase in weakness once hospitalized. Making things difficult is a fluctuating exam with some give-way. The patient has been neurologically stable and in fact is probably stronger than my colleague initially described him when he saw him first in consult. Whether or not I am better at encouraging is unclear. The clinical question is does the patient have an acute neuropathy, possibly a Guillain-[place] syndrome type picture. His MRI of the lumbar spine did not show significant nerve root inflammation or enhancement. The lumbar puncture could certainly support that, although whether or not the patient would had elevated total protein from his neuropathic process is unknown. It is of note that the patient indicates that he had a similar hospitalization 5 years ago at [facility]. This included a lumbar puncture. The patient says that no etiology was found. At this point, I recommend an elective nonemergent transfer to [facility] or another tertiary care unit. I would not recommend that happen this evening because of icy road conditions and certainly the patient does not need to be flown via helicopter. He is stable from both a neuromuscular and respiratory perspective. I think the advantages of going to a tertiary care center such as [facility] is the availability of a neuromuscular specialist and the ability to do a nerve conduction EMG, which cannot be done at this hospital.
[2020-08-08] MEDS: traZODone HCL 50 MG TAB PO SCH (20:19)
[2020-08-08] MEDS: SENNA 8.6 MG TAB PO SCH (20:20)
[2020-08-08] MEDS: ONDANSETRON INJ 2 MG/ML 2 ML VIAL IV PRN (20:20)
[2020-08-08] MEDS: oxyCODONE/ACETAMINOPHEN 5mg/325mg TAB PO PRN (20:20)
--- NOTE | 2020-08-09 05:40 | Electrocardiogram Report ---
Test Reason : Blood Pressure : / mmHG Vent. Rate : 067 BPM Atrial Rate : 067 BPM P-R Int : 130 ms QRS Dur : 088 ms QT Int : 402 ms P-R-T Axes : 042 096 084 degrees QTc Int : 424 ms Normal sinus rhythm Rightward axis Borderline ECG When compared with ECG of 07-AUG-2020 11:30, No significant change was found Confirmed by Ra Pablo ([id number]) on 08/09/2020 5:39:57 AM Referred By: REFERRED SELF Confirmed By:Ra Pablo
[2020-08-09 07:00] LABS: Creatinine Clr Calc Pharmacy 112.8 ml/min; Est GFR (African American) 143.9; Est GFR (Non-African American) 124.2
[2020-08-09] MEDS: SERTRALINE HCL 100 MG TABLET PO SCH (08:15)
[2020-08-09] MEDS: NICOTINE 21 MG/24 HR TDSY TD SCH (08:19)
[2020-08-09] MEDS: oxyCODONE/ACETAMINOPHEN 5mg/325mg TAB PO PRN ×2 (08:32→19:13)
[2020-08-09] MEDS: DOCUSATE SODIUM 100 MG CAP PO PRN (08:32)
[2020-08-09] MEDS: POLYETHYLENE (MIRALAX) 17 GM PACK PO PRN (08:32)
[2020-08-09] MEDS: ONDANSETRON INJ 2 MG/ML 2 ML VIAL IV PRN ×2 (08:36→19:12)
--- NOTE | 2020-08-09 10:51 | Hospitalist Progress Note ---
Date of Service August 09, 2020 Assessment & Plan (1) Chest pain: Patient have had episode of chest tightness. EKG has been nonischemic. Cardiac enzymes have been negative. Urine tox was positive for marijuana/opiates and ecstasy. Patient was concerned about his tox screen and emphasized that he does not abuse. Was made aware of possible interactions with his CLERICAL ADVISER medications as well. CT PE study was negative for any pulmonary embolism or aneurysm. We will continue supportive management. (2) Acute urinary retention: Patient has history of chronic neurogenic bladder and does straight cath at home at bedtime. Reports his primary reason for coming to the hospital was because he was having urinary retention usually at home he would have urinary incontinent and before going to bed he would cath himself to void any wet briefs overnight. Ditropan is being held. He failed voiding trial being off oxybutynin. Zavala catheter was placed. Patient will need to follow-up with urology as an outpatient. (3) Weakness: Patient presented with bilateral lower extremity weakness that has been progressively getting worse for him. He states that he has had similar episode roughly 5 years ago when he was seen at [facility] in [place]. He does not know what he was diagnosed with but symptoms resolved after 5 days. I also spoke with the mother on 11/05 and she states that he was diagnosed with conversion disorder by psychiatrist at that time. Patient and the mother reports that recently for the past 3 weeks he has been under a lot of stress due to various reasons with his job and contributing that this is possibly another episode which was previously observed 5 years ago. Patient has requested multiple times to be transferred to [facility]. Prior to me to physicians have spoken with [facility] neurologist Dr. Hollingsworth. Due to no acute indication for transfer, [facility] requested. Insurance authorization since it was patient request. Today the authorization got denied. However on 06/07, patient underwent lumbar puncture and was found to have elevated CSF protein levels. I discussed with neurologist at [facility] and at [facility] (Dr. Millard). Patient was again accepted by her on 08/08. Since his preauthorization got denied today, I updated [facility]. Currently he is awaiting a bed. And now there is clinical indication for him to be at [facility] due to elevated CSF protein levels, will have care team coordinator scheduler resubmit the Auth. Patient will need repeat Covid test prior to discharge [facility]. MRI of the brain, cervical/thoracic/lumbar spine MRI have been negative for any acute findings. 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 (5) Acute flank pain: Initially thought to be related to possible UTI/pyelo, however, UA/UCx is coming up negative. (6) Hematuria: This has resolved. No presence of infection. Defer to Urology for any need of further investigation into this, however, hematuria was clearly seen when patient was undergoing self-instrumentation possibly under the influence of marijuana which may have caused a traumatic catheterization. Patient will need to follow-up with urology as an outpatient. 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 Sees outpatient ophthalmology regularly. (8) Posterior herniation of lumbar disc: Appreciate orthospine input. No indication for any intervention. Plan to continue with neurological work-up. (9) Tobacco use: Counseled (10) DVT prophylaxis: Lovenox Full Code Admission and Anticipated Discharge Date Admission Date: August 02, 2020 Subjective Currently having breakfast. Does not appear to be in any distress reports. His primary complaint today was lower back pain on a scale of 7 out of 10 that has been going on since his admission. Also reports diaphoresis. No improvement in the lower extremity weakness. Denies any chest tightness today. Denies any shortness of breath. Denies any abdominal pain. Rest of the review of system is negative. Review of Systems Review of Systems: All systems reviewed & are unremarkable except as noted in HPI & below Physical Exam Physical Exam: General: A&Ox3. Appears agitated HENT: NCAT, MMM, EOMI Eyes: PERRLA Neck: Supple, normal range of motion CVS: normal rate and rhythm Resp: b/l good breath sounds Abdomen: Soft, nondistended nontender Extremities: Bilateral lower extremities weakness appreciated 3/5, no sensation above bilateral ankles to the level of groin Skin: warm and dry MSK: no joint swelling/erythema Zavala catheter in place. Results & Data Results & Data ([facility]) Vital Signs (Past 12 Hours) Vital Signs Temp Pulse Pulse Resp BP Pulse Ox 08/09/20 08:00 59 L 08/09/20 07:14 36.5 C 69 18 110/65 97 08/09/20 05:38 93 08/09/20 04:03 36.6 C 59 L 18 102/61 96 08/08/20 23:23 36.3 C L 56 L 18 105/56 L 96
[2020-08-09] MEDS: MoRPHine SULFATE 2 MG/ML CARP IV PRN ×2 (13:50→18:31)
[2020-08-09] MEDS: ENOXAPARIN INJ 40 MG/0.4 ML SYR SQ SCH (15:16)
--- NOTE | 2020-08-09 16:18 | Neurology Progress Note ---
Date of Service August 09, 2020 Assessment & Plan (1) Weakness: 1. MRI L spine minor herniated disc not related to bilateral LE weakness 2. PT/OT discharge needs 3. primary team attempting to transfer to [facility] no clear reason for transfer but since the LP high protein he has now been accepted 4. neurology at [facility] if weakness progress will need a LP and possible steroids and IVIG? 5. secondary social studies teacher for rehab options 6. follow up with [facility] neurology at discharge- patient preference (2) Acute urinary retention: 1. Ditropan stopped should help with retention - urology has been consulted and recommendations made. 2. straight cath as needed Admission and Anticipated Discharge Date Admission Date: August 02, 2020 Supervising Physician Co-Signing Physician Notes I have seen and discussed above patient with Dr Taylor Alejandre, neurology patient seen and examined discussed with Taylor Pierre. Patient reports no new symptoms no shortness of breath difficulty with swallowing. No new weakness no new numbness he is anxiously awaiting transfer to [facility]. On exam he has occasional blepharospasm on the right eye closure is fully strong no neck flexor or extensor weakness no weakness of the jaw tongue. Speech is nonnasal. There is mild weakness of the intrinsic muscles of the hands otherwise upper extremity strength is full the lowers are at least for approximately the quads are about for the hamstrings about 4 the right TA is about 3+ left of L4 if the patient gives full effort gastrocs 3+. Areflexic throughout. A high thigh level to temperature. Normal temperature in the uppers. Patient able to count past 40 on 1 breath Patient with history of CMT with admission to the hospital for other reasons but increased weakness. Patient's exam is complicated by the fact that his effort is variable. He has not showed a progressive decline in strength. There are no bulbar symptoms. Lumbar puncture could support an acute inflammatory demyelinating neuropathy due to elevated protein although in theory he may have an elevated CSF protein related to his neuropathy. The patient has had a similar evaluation 5 years ago at [facility] which he indicates was nonrevealing and he improved spontaneously I agree with transfer to [facility] for nerve conduction EMG and neuromuscular evaluation will sign off Kaitlin Edward is a 25 year old male admitted to the hospital with hematuria and a urinary tract infection, noted to have increased weakness in both legs. He does have a history of Eciwifv-Pifbj-Qliwx disease as well as a neurogenic bladder. He has been seen by neurology in the past in our office but not since 2019. He has unknown family history as he is adopted. He was diagnosed with Keaaefj-Erqnc-Laoep disease at an early age around the age of 3-4. He states he was diagnosed at [facility]. He has had chronic weakness in both legs as well as bilateral foot drop and has chronic numbness in both legs. He also notes to me that he has had a longstanding history of urinary issues mainly incontinence and now his is having issues with retention. He was started on Ditropan but that has been stopped. According to the PT notes had did walk today but when questioned about it he states he was tripping all over the place with them. He had a flare-up about 5 years ago and this was in the setting of stress and was unable to walk for 2 weeks. It spontaneously resolved. he is not longer working at [employer] he was laid off because of low volume of customers in June. he wants to be transferred to [facility] to seek a second opinion. [facility] has accepted him in transfer and they are currently waiting on bed availablity denies CP, SOB, abdominal pain, leg pain. +weakness, numbness bilateral LE Physical Exam Physical Exam: Physical Exam: Constitutional: appearance nourished, healthy Ears, Nose, Mouth and Throat: mucous membranes moist, no injection and skin normal Cardiovascular: normal S-1 and S-2 and regular rate and rhythm Respiratory: clear to auscultation (CTA) and no rales, ronchi or wheeze Musculoskeletal: no peripheral edema Skin: no stigmata of neurocutaneous disease noted and normal and intact Eyes: extraocular muscles intact (EOMI) and pupils equal, round and reactive to light (PERRL), strabismus right eye NEUROLOGIC EXAMINATION: Mental status: Alert and interactive Oriented to full date and location Oriented to person Speech fluent with no evidence of aphasia Cranial Nerves smile eye brows symmetric Reflexes: Deep tendon reflexes absent bilaterally Sensory: absent light touch and pinch bilaterally thighs Coordination: finger to nose Gait/Stance: Posture sitting up in bed Motor: Negative for pronator drift of out stretched arms with eyes closed. Strength: hand triage clinician biceps triceps 5/5 bilaterally hip flex 4/5 bilaterally plantar flexion decreased. Results & Data ([facility]) Vital Signs (Past 12 Hours) Vital Signs Temp Pulse Pulse Resp BP Pulse Ox 08/09/20 15:12 77 08/09/20 11:12 36.5 C 61 18 121/72 97 08/09/20 08:00 59 L 08/09/20 07:14 36.5 C 69 18 110/65 97 08/09/20 05:38 93 08/09/20 04:03 36.6 C 59 L 18 102/61 96 Laboratory Results no further labs Diagnostic Findings no new imaging
--- NOTE | 2020-08-09 18:46 | Discharge Summary ---
Date of Service August 09, 2020 Admission HPI Per Admitting Provider A 25-year-old male with past medical history significant for Charcot-Elizabeth disease, history of neurogenic urinary incontinence, can pee by himself, but uses straight cath once everyday before going to sleep, history of vitamin deficiencies, pruritic intertrigo, history of tobacco use disorder, history of marijuana use episodic as per records. Comes here because the patient today when he tried to straight cath before going to bed, he noticed blood in the urine and decided to come to ER. He is having back pain since last 1 week and last couple of days is also having some lower abdominal discomfort. He was straight catheterized one more time in the ER, but at that time the hematuria got resolved and he also peed once in the ER, and there was no blood in the urine. Currently resting comfortably and hemodynamically stable. Denies any fever, chills. No nausea, no chest pain, no shortness of breath, no cough, no headache, no blurred visions, no earache, no runny nose, no sore throat. No COVID symptoms. Appetite is okay. No difficulty swallowing. He has some imbalance issues. He has Charcot-Elizabeth disease. Lives with his mom. Admission Exam Per Admitting Provider GENERAL: The patient is of moderate build, not in acute distress. VITAL SIGNS: Temperature 36.4, pulse 60, respiratory rate 17, blood pressure 110/77, oxygen 98% on room air. HEENT: Pupils equal, round, and reactive to light. Oral mucosa moist. NECK: No neck masses seen. CARDIOVASCULAR: S1, S2 heard. Regular rate and rhythm, no murmur, no gallop. RESPIRATORY SYSTEM: Normal AP diameter. No accessory muscle use. No wheezing, no crackles. ABDOMEN: Soft, bowel sounds present. Mild abdominal discomfort. Mild guarding present. No rigidity. No distention. CENTRAL NERVOUS SYSTEM: Cranial nerves II-XII grossly intact, nonfocal. EXTREMITIES: No edema, no erythema. Principal Diagnosis Lower extremity weakness urinary retention Discharge Exam General: A&Ox3. Appears agitated HENT: NCAT, MMM, EOMI Eyes: PERRLA Neck: Supple, normal range of motion CVS: normal rate and rhythm Resp: b/l good breath sounds Abdomen: Soft, nondistended nontender Extremities: Bilateral lower extremities weakness appreciated 3/5, no sensation above bilateral ankles to the level of groin Skin: warm and dry MSK: no joint swelling/erythema Zavala catheter in place. Discharge Data Allergies Allergy/AdvReac Type Severity Reaction Status Date / Time bee venom protein (honey bee) Allergy Unknown Difficulty Verified 08/01/20 22:38 Breathing peanut Allergy Unknown Skin Verified 08/01/20 22:38 reaction pollen extracts Allergy Unknown Unknown Verified 08/01/20 22:38 Consultations 08/02/20 00:11 ED Decision to Admit Stat 08/02/20 08:00 Consult Urology Routine 08/03/20 16:53 Consult Neurology Routine 08/05/20 12:10 Consult Orthopedic Surgery Routine 08/07/20 23:33 Consult Case Management - Discharge Planning Routine Ordered Studies 08/01/20 21:38 CT abd pelvis IV con only Urgent 08/04/20 10:53 MR lumbar spine wo/w con Routine 08/05/20 21:11 MR brain wo/w con Routine MR cervical spine wo/w con Routine MR thoracic spine wo/w con Routine 08/07/20 12:15 CT angio chest PE protocol Urgent 08/08/20 07:00 FL lumbar puncture diagnostic Routine Hospital Course (1) Chest pain: Patient have had episode of chest tightness. EKG has been nonischemic. Cardiac enzymes have been negative. Urine tox was positive for marijuana/opiates and ecstasy. Patient was concerned about his tox screen and emphasized that he does not abuse. 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 CT PE study was negative for any pulmonary embolism or aneurysm. Will continue supportive management. (2) Acute urinary retention: Patient has history of chronic neurogenic bladder and does straight cath at home at bedtime. Reports his primary reason for coming to the hospital was because he was having urinary retention usually at home he would have urinary incontinent and before going to bed he would cath himself to void any wet briefs overnight. Ditropan is being held. He failed voiding trial being off oxybutynin. Zavala catheter was placed. Patient will need to follow-up with urology as an outpatient. (3) Weakness: Patient presented with bilateral lower extremity weakness that has been progressively getting worse for him. He states that he has had similar episode roughly 5 years ago when he was seen at [facility] in [place]. He does not know what he was diagnosed with but symptoms resolved after 5 days. I also spoke with the mother on 11/05 and she states that he was diagnosed with conversion disorder by psychiatrist at that time. Patient and the mother reports that recently for the past 3 weeks he has been under a lot of stress due to various reasons with his job and contributing that this is possibly another episode which was previously observed 5 years ago. Patient has requested multiple times to be transferred to [facility]. Prior to me to physicians have spoken with [facility] neurologist Dr. Hollingsworth. Due to no acute indication for transfer, [facility] requested. Insurance authorization since it was patient request. Today the authorization got denied. However on 06/07, patient underwent lumbar puncture and was found to have elevated CSF protein levels. I discussed with neurologist at [facility] and at [facility] (Dr. Millard). Patient was again accepted by her on 08/08. Since his preauthorization got denied today, I updated [facility]. Currently he is awaiting a bed. And now there is clinical indication for him to be at [facility] due to elevated CSF protein levels, will have nurse wound care resubmit the Auth. Patient will need repeat Covid test prior to discharge [facility]. MRI of the brain, cervical/thoracic/lumbar spine MRI have been negative for any acute findings. (4) Vsrygcl-Pkydp-Egkfd disease: Has h/o CMT disease since childhood with flares in the past. (5) Acute flank pain: Initially thought to be related to possible UTI/pyelo, however, UA/UCx is coming up negative. (6) Hematuria: This has resolved. No presence of infection. Defer to Urology for any need of further investigation into this, however, hematuria was clearly seen when patient was undergoing self-instrumentation possibly under the influence of marijuana which may have caused a traumatic catheterization. Patient will need to follow-up with urology as an outpatient. 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 Sees outpatient ophthalmology regularly. (8) Posterior herniation of lumbar disc: Appreciate orthospine input. No indication for any intervention. Plan to continue with neurological work-up. (9) Tobacco use: Counseled Total Time Total Time Spent Total Time Spent (In Minutes): 35 Discharge Plan Discharge Items Patient Disposition: Transfer Acute Care Hospital Reason For Visit: HEMATURIA Discharge Diagnosis: Lower extremity weakness Urinary retention Condition on Discharge: Good Activity: Resume your previous activity Non-emergency contact: Primary Care Provider Call non-emergency contact if: your symptoms worsen Follow-up/Referrals: Everardo Lemons MD [Primary Care Provider] - Diet: Regular Addtl Attending Provider Instructions: None Pending Studies at Discharge: Yes Stand-Alone Forms: My [facility] Skilled Items Patient informed of condition?: Yes DNR: No Discharge Level of Care: Other Communicable Disease: No Discharge Prognosis: Stable Lines: Peripheral IV Urinary Catheter: Yes Medications and DC Order Prescriptions: Continued cyclobenzaprine 10 mg Tablet 10 mg PO TID PRN (Reason: Muscle Spasm) RF: 0 nystatin [Nystop] 100,000 unit/gram powder 1 applic TOPICAL BID RF: 0 albuterol sulfate 90 mcg/actuation HFA aerosol inhaler 2 puff INHALATION QID PRN (Reason: Shortness Of Breath Or Wheezing) RF: 0 Ensure High Protein Liquid 1 ea PO TID RF: 0 cholecalciferol (vitamin D3) 1,250 mcg (50,000 unit) Capsule 1,250 mcg PO WK RF: 0 sertraline 100 mg tablet 100 mg PO DAILY RF: 0 lorazepam 0.5 mg tablet 0.5 mg PO Q8H PRN (Reason: Anxiety) RF: 0 trazodone 150 mg tablet 150 mg PO HS RF: 0 polyethylene glycol 3350 [Miralax] 17 gram powder in packet 17 g PO DAILY PRN (Reason: Constipation) RF: 0 tramadol [Ultram] 50 mg tablet 50 mg PO Q6H PRN (Reason: Pain, Severe) RF: 0 Discontinued oxybutynin chloride 15 mg tablet extended release 24hr 15 mg PO DAILY RF: 0 Discharge Orders: Discharge Order (Routine); Ordered 08/09/20 Ordered By: Oral Joy Admission Data Admit Date/Time: 08/02/20 01:14 Attending Provider: Oral Joy Admit Provider: Logan Johnson Primary Care Provider: Everardo Lemons Other Providers: Logan Johnson ; Bradley Davies ; Phu Hamilton ; Ramiro Phipps ; Mady Moore ; Radha Vidal ; Naeem Tomas ; Lou Dacosta ; Susan Mulligan ; Pratima Wild ; Junito Otero ; Lita Landeros ; Sharon Foster ; Stephen Navarro ; Arik Louis
[2020-08-10 16:17] LABS: Codeine Urine NEGATIVE ng/mL (<50); Hydrocodone Urine NEGATIVE ng/mL (<50); Hydromor Urine NEGATIVE ng/mL (<50); MDA negative; MDEA negative; MDMA (Ecstasy) Urine, Confirm negative; Marijuana Quant, GCMS Urine 411 ng/mL (<5); Morphine Urine 374 ng/mL (<50); Norhydrocodone Conf Ur NEGATIVE ng/mL (<50); Noroxycodone Urine NEGATIVE ng/mL (<50); Oxycodone Urine NEGATIVE ng/mL (<50); Oxymorph Urine NEGATIVE ng/mL (<50)
== END 2020-08-09 19:39 | disposition short-term general hospital (02) | DRG 699 ==
LOC: ED 21:24 → SUATTDRO 08-02 01:14 → 3W 08-02 01:14 → 2N 08-07 14:17

== ENCOUNTER 2021-10-17 17:21 | Inpatient (IN) ==
[2021-10-17 18:06] LABS: Basophils # (auto) 0.04 K/uL (0-0.2); Basophils % (auto) 0.5 %; Eosinophils # (auto) 0.15 K/uL (0-0.5); Eosinophils % (auto) 1.7 %; Hematocrit (blood only) 48.3 % (42-52); Hemoglobin 17.1 g/dL (14.0-18.0); Immature Granulocytes # (auto) 0.01 K/uL (0.00-0.02); Immature Granulocytes % (auto) 0.1 %; Lymphocytes # (auto) 2.12 K/uL (1.2-3.4); Lymphocytes % (auto) 23.9 %; Mean Corpuscular Hemoglobin 29.9 pg (25-34); Mean Corpuscular Hgb Conc 35.4 g/dL (32-36); Mean Corpuscular Volume 84.6 fL (80-100); Mean Platelet Volume 10.4 fL (7.4-10.4); Monocytes # (auto) 0.46 K/uL (0.11-0.59); Monocytes % (auto) 5.2 %; Neutrophils # (auto) 6.08 K/uL (1.4-6.5); Neutrophils % (auto) 68.6 %; Platelet Count 231 K/uL (130-400); RDW Standard Deviation 40.3 fL (36.4-46.3); Red Blood Count 5.71 M/uL (4.7-6.1); White Blood Count 8.86 K/uL (4.8-10.8)
[2021-10-17] MEDS ORDERED: LORazepam 1 MG TAB SL STA ×2 (18:11→19:30)
[2021-10-17 18:38] LABS: Albumin Globulin Ratio 1.6 (0.9-2); Bilirubin,Total 0.7 mg/dl (0.2-1.0); Calcium 10.3 mg/dl (8.5-10.1); Creatinine Clr Calc Pharmacy 103.4 ml/min; Est GFR (African American) 142.2 ml/min; Est GFR (Non-African American) 122.7 ml/min; Globulin 3.1 gm/dl (2.5-4.0); Potassium 3.7 mmol/L (3.5-5.1); Total Protein 8.1 gm/dl (6.0-8.3)
[2021-10-17 18:39] LABS: Acetaminophen < 3 ug/ml (10-30); Salicylate < 3.0 mg/dl (3.0-30)
[2021-10-17 18:55] LABS: Thyroid Stimulating Hormone 0.226 uIu/ml (0.300-4.500)
[2021-10-17 19:34] LABS: T4 Free Thyroxine 1.12 ng/dl (0.61-1.60)
[2021-10-17 20:40] LABS: Appearance Urine Cloudy (Clear); Bacteria Urine Automated Negative (Negative); Bilirubin Urine Negative (Negative); Blood Urine Negative (Negative); Color Urine Yellow; Epithelial Cell Urine Auto >30 /lpf (0-5); Glucose Urine UA Negative (Negative); Ketones Urine Trace (Negative); Leukocyte Esterase Urine Negative (Negative); Nitrite Urine Negative (Negative); Protein Urine Negative (Negative); RBC Urine Automated 0-4 /hpf (0-4); Specific Gravity Urine 1.018 (1.000-1.030); Urobilinogen Urine Negative (Negative)
[2021-10-17 20:50] LABS: Renal Epithelial Cells Urine 0-5 /lpf (0-5)
[2021-10-17 21:39] LABS: Amphetamines+Metham, Urine Neg (Neg); Barbiturates, Urine Neg (Neg); Benzodiazepine, Urine Neg (Neg); Cocaine, Urine Neg (Neg); MDMA (Ecstacy), Urine Neg (Neg); Methadone, Urine Neg (Neg); Opiate, Urine Neg (Neg); Phencyclidine, Urine Neg (Neg)
--- NOTE | 2021-10-17 22:50 | Emergency Department Note ---
History of Present Illness General Chief complaint: Mental Health Evaluation Stated complaint: MENTAL EVALUATION Time Seen by Provider: 10/17/21 17:36 History of Present Illness Provider complaint: Mental health evaluation 26-year-old male presents emergency department for mental health evaluation. Patient reports he has been increasingly depressed and having thoughts of overdose on his trazodone. Patient states he has been under extreme stress in his life which has been exacerbated over the last week when he lost his job, lost custody of the child, and his brother started going through a divorce. Patient reports no access to any firearms. He does report using marijuana. Home Medications Medication Instructions Recorded Confirmed Type cyclobenzaprine 10 mg tablet 10 mg PO TID PRN 07/17/19 10/17/21 History albuterol sulfate 90 mcg/actuation 2 puff INHALATION QID PRN 03/06/20 10/17/21 History aerosol inhaler food supplemt, lactose-reduced 1 ea PO TID 03/06/20 10/17/21 History (Ensure High Protein) cholecalciferol (vitamin D3) 1,250 1,250 mcg PO WK 04/01/20 10/17/21 History mcg (50,000 unit) capsule lorazepam 0.5 mg tablet 0.5 mg PO Q8H PRN 08/01/20 10/17/21 History tramadol 50 mg tablet (Ultram) 50 mg PO Q6H PRN 08/01/20 10/17/21 History trazodone 150 mg tablet 200 mg PO HS 08/01/20 10/17/21 History Allergies Allergy/AdvReac Type Severity Reaction Status Date / Time bee venom protein (honey bee) Allergy Unknown Difficulty Verified 06/01/21 15:33 Breathing peanut Allergy Unknown Skin Verified 06/01/21 15:33 reaction pollen extracts Allergy Unknown Unknown Verified 06/01/21 15:33 Past Med/Surg History Medical History Abscess of groin, right ADHD Anxiety Autism Cellulitis of groin, right Toefhds-Jsvxc-Zbryx disease Glaucoma MDD (major depressive disorder) PTSD (post-traumatic stress disorder) Surgical History No pertinent past surgical history Family History Other No known problems Social History Smoking Status: Current every day smoker Tobacco Type: Cigarettes Cigarettes Per Day: 4; Second Hand Exposure: No; Hx Alcohol Use: Yes Alcohol type: beer Hx Substance Use: Yes Last Used Substance: Days (ago) Last Used Substance Other:: Daily Preferred Language: [place]serratian Communication Ability: Effective 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: No Beliefs That Will Affect Care: None marital status: single Current Living Situation: Family current occupational status: employed Feels Safe at Home: Yes Assistive Devices: Glasses and Walker Review of Systems A total of 10 systems reviewed and were otherwise negative Physical Exam Vital Signs Vital Signs - 24 hr 10/17/21 17:28 10/17/21 18:30 10/17/21 20:00 Temperature 36.6 C 36.8 C Temperature Source Temporal Artery Scan Oral Pulse Rate 96 H Pulse Rate [Right Radial] 67 84 Pulse Rhythm [Right Radial] Regular Respiratory Rate 18 16 18 Respiratory Effort / Characteristics Non-Labored Non-Labored Spontaneous Respiratory Depth Normal Normal Respiratory Pattern Regular Blood Pressure 123/90 Blood Pressure [Right Arm] 113/67 134/70 Blood Pressure Mean 101 Blood Pressure Mean [Right Arm] 82 91 Blood Pressure Position [Right Arm] Lying Pulse Oximetry 98 97 96 Oxygen Delivery Method Room Air Room Air Room Air Sepsis Recent Fever Within 48 Hours No Sepsis New/Unexplained Change in Mental Status No Sepsis Action Taken by Nursing No Action Required 10/17/21 22:00 10/17/21 23:42 Temperature 36.8 C Temperature Source Oral Pulse Rate 75 Pulse Rate [Right Radial] 74 Pulse Rhythm [Right Radial] Respiratory Rate 15 16 Respiratory Effort / Characteristics Non-Labored Respiratory Depth Respiratory Pattern Blood Pressure 132/76 Blood Pressure [Right Arm] 128/72 Blood Pressure Mean Blood Pressure Mean [Right Arm] 90 Blood Pressure Position [Right Arm] Pulse Oximetry 96 99 Oxygen Delivery Method Room Air Room Air Sepsis Recent Fever Within 48 Hours Sepsis New/Unexplained Change in Mental Status Sepsis Action Taken by Nursing Physical Exam GENERAL: He is oriented to person, place, and time. He appears well-developed and well-nourished. He does not appear distressed. HENT: Exam performed. - Head: Normocephalic and atraumatic. - Right Ear: External ear normal. No mastoid tenderness. - Left Ear: External ear normal. No mastoid tenderness. - Mouth/Throat: The oropharynx is clear and moist. No trismus in the jaw. No dental abscesses or uvula swelling. No oropharyngeal exudate or tonsillar abscesses. EYES: Conjunctivae and EOM are normal. Pupils are equal, round, and reactive to light. Right eye exhibits no discharge. Left eye exhibits no discharge. No scleral icterus. NECK: Normal range of motion. Neck supple. No JVD present. No spinous process tenderness present. No carotid bruit present. No rigidity. No tracheal deviation and normal range of motion present. No Brudzinski's sign and no Kernig's sign noted. CV: Normal rate, regular rhythm, normal heart sounds and intact distal pulses. There is no peripheral edema. Palpable radial pulses bue. PULM/CHEST: Effort normal and breath sounds normal. No respiratory distress. No stridor. He has no wheezes. He has no rales. - Chest Wall: He exhibits no tenderness. ABD: The abdomen is soft. Bowel sounds are normal. He has no distension. No mass is present. There is no tenderness. There is no rebound, no guarding, no Singh's sign and no tenderness at McBurney's point. Rovsig negative. MUSC/SKEL: Normal range of motion. There is no peripheral edema, tenderness or deformity. LYMPH: No cervical adenopathy. NEURO: He is alert and oriented to person, place, and time. He has normal strength. No cranial nerve deficit or sensory deficit. Coordination and gait normal. GCS eye subscore is 4. GCS verbal subscore is 5. GCS motor subscore is 6. Cerebellar tests wnl. SKIN: Skin is warm and dry. He is not diaphoretic. PSYCH: Patient appears depressed and and is tearful. + Suicidal ideation. Course Course 173: The patient was evaluated in room A8. A complete history and physical exam was performed 2030: Patient medically cleared. Patient will be evaluated for inpatient psychiatric treatment patient placed on observation at this time. 2345: Patient accepted to 3 S Administered Medications Discontinued Medications Lorazepam (Lorazepam 1 Mg Tab) 1 mg SL NOW STA Stop: 10/17/21 18:12 Last Admin: 10/17/21 18:22 Dose: 1 mg Documented by: [id number] Lorazepam (Lorazepam 1 Mg Tab) 1 mg SL NOW STA Stop: 10/17/21 19:31 Last Admin: 10/17/21 19:38 Dose: 1 mg Documented by: [id number] Medical Decision Making Laboratory Data Result diagrams: 10/17/21 17:50 10/17/21 17:50 Lab Results 10/17/21 10/17/21 10/17/21 Range/Units 17:50 17:50 17:50 WBC 8.86 (4.8-10.8) K/uL RBC 5.71 (4.7-6.1) M/uL Hgb 17.1 (14.0-18.0) g/dL Hct 48.3 (42-52) % MCV 84.6 (80-100) fL MCH 29.9 (25-34) pg MCHC 35.4 (32-36) g/dL RDW Std Deviation 40.3 (36.4-46.3) fL RDW Coeff of Ashok 13.0 (11.5-14.5) % Plt Count 231 (130-400) K/uL MPV 10.4 (7.4-10.4) fL Immature Gran % (Auto) 0.1 % Neut % (Auto) 68.6 % Lymph % (Auto) 23.9 % Brooks % (Auto) 5.2 % Eos % (Auto) 1.7 % Baso % (Auto) 0.5 % Neut # (Auto) 6.08 (1.4-6.5) K/uL Lymph # (Auto) 2.12 (1.2-3.4) K/uL Brooks # (Auto) 0.46 (0.11-0.59) K/uL Eos # (Auto) 0.15 (0-0.5) K/uL Baso # (Auto) 0.04 (0-0.2) K/uL Immature Gran # (Auto) 0.01 (0.00-0.02) K/uL Sodium 140 (136-145) mmol/L Potassium 3.7 (3.5-5.1) mmol/L Chloride 105 (98-107) mmol/L Carbon Dioxide 26 (21-32) mmol/L Anion Gap 9 (3-11) BUN 13 (6-23) mg/dl Creatinine 0.81 (0.6-1.4) mg/dl Est Cr Clr Drug Dosing 103.4 ml/min Est GFR ( Amer) 142.2 ml/min Est GFR (Non-Af Amer) 122.7 ml/min BUN/Creatinine Ratio 16.0 (10-20) Glucose 95 (70-99(Fasting)) mg/dl Calcium 10.3 H (8.5-10.1) mg/dl Total Bilirubin 0.7 (0.2-1.0) mg/dl AST 19 (13-39) U/L ALT 15 (7-52) U/L Alkaline Phosphatase 64 (34-104) U/L Total Protein 8.1 (6.0-8.3) gm/dl Albumin 5.0 (3.4-5.0) gm/dl Globulin 3.1 (2.5-4.0) gm/dl Albumin/Globulin Ratio 1.6 (0.9-2) TSH 0.226 L (0.300-4.500) uIu/ml Free T4 1.12 (0.61-1.60) ng/dl Urine Color Urine Appearance (Clear) Urine pH (4.5-7.5) Ur Specific [place] (1.000-1.030) Urine Protein (Negative) Urine Glucose (UA) (Negative) Urine Ketones (Negative) Urine Blood (Negative) Urine Nitrite (Negative) Urine Bilirubin (Negative) Urine Urobilinogen (Negative) Ur Leukocyte Esterase (Negative) Urine WBC (Auto) (0-5) /hpf Urine RBC (Auto) (0-4) /hpf U Hyaline Cast (Auto) (0-5) /lpf U Epithel Cells (Auto) (0-5) /lpf Urine Bacteria (Auto) (Negative) Ur Renal Epithelial Cell (0-5) /lpf Salicylates (3.0-30) mg/dl Urine Opiates Screen (Neg) Ur Methadone, Qual (Neg) Acetaminophen (10-30) ug/ml Urine Barbiturates (Neg) Ur Phencyclidine (PCP) (Neg) U Amphetamin/Meth Scrn (Neg) MDMA (Ecstasy) Screen (Neg) U Benzodiazepines Scrn (Neg) Ur Cocaine Metabolite (Neg) U Marijuana (THC) Screen (Neg) Ethyl Alcohol mg/dL (<10.0) mg/dl SARS-CoV-2, RNA, NAAT (NEGATIVE) 10/17/21 10/17/2122 Range/Units 17:50 17:50 17:50 WBC (4.8-10.8) K/uL RBC (4.7-6.1) M/uL Hgb (14.0-18.0) g/dL Hct (42-52) % MCV (80-100) fL MCH (25-34) pg MCHC (32-36) g/dL RDW Std Deviation (36.4-46.3) fL RDW Coeff of Ashok (11.5-14.5) % Plt Count (130-400) K/uL MPV (7.4-10.4) fL Immature Gran % (Auto) % Neut % (Auto) % Lymph % (Auto) % Brooks % (Auto) % Eos % (Auto) % Baso % (Auto) % Neut # (Auto) (1.4-6.5) K/uL Lymph # (Auto) (1.2-3.4) K/uL Brooks # (Auto) (0.11-0.59) K/uL Eos # (Auto) (0-0.5) K/uL Baso # (Auto) (0-0.2) K/uL Immature Gran # (Auto) (0.00-0.02) K/uL Sodium (136-145) mmol/L Potassium (3.5-5.1) mmol/L Chloride (98-107) mmol/L Carbon Dioxide (21-32) mmol/L Anion Gap (3-11) BUN (6-23) mg/dl Creatinine (0.6-1.4) mg/dl Est Cr Clr Drug Dosing ml/min Est GFR ( Amer) ml/min Est GFR (Non-Af Amer) ml/min BUN/Creatinine Ratio (10-20) Glucose (70-99(Fasting)) mg/dl Calcium (8.5-10.1) mg/dl Total Bilirubin (0.2-1.0) mg/dl AST (13-39) U/L ALT (7-52) U/L Alkaline Phosphatase (34-104) U/L Total Protein (6.0-8.3) gm/dl Albumin (3.4-5.0) gm/dl Globulin (2.5-4.0) gm/dl Albumin/Globulin Ratio (0.9-2) TSH (0.300-4.500) uIu/ml Free T4 (0.61-1.60) ng/dl Urine Color Urine Appearance (Clear) Urine pH (4.5-7.5) Ur Specific [place] (1.000-1.030) Urine Protein (Negative) Urine Glucose (UA) (Negative) Urine Ketones (Negative) Urine Blood (Negative) Urine Nitrite (Negative) Urine Bilirubin (Negative) Urine Urobilinogen (Negative) Ur Leukocyte Esterase (Negative) Urine WBC (Auto) (0-5) /hpf Urine RBC (Auto) (0-4) /hpf U Hyaline Cast (Auto) (0-5) /lpf U Epithel Cells (Auto) (0-5) /lpf Urine Bacteria (Auto) (Negative) Ur Renal Epithelial Cell (0-5) /lpf Salicylates < 3.0 L (3.0-30) mg/dl Urine Opiates Screen (Neg) Ur Methadone, Qual (Neg) Acetaminophen < 3 L (10-30) ug/ml Urine Barbiturates (Neg) Ur Phencyclidine (PCP) (Neg) U Amphetamin/Meth Scrn (Neg) MDMA (Ecstasy) Screen (Neg) U Benzodiazepines Scrn (Neg) Ur Cocaine Metabolite (Neg) U Marijuana (THC) Screen (Neg) Ethyl Alcohol mg/dL < 10.0 (<10.0) mg/dl SARS-CoV-2, RNA, NAAT NEGATIVE (NEGATIVE) 10/17/21 10/17/21 Range/Units 20:20 20:20 WBC (4.8-10.8) K/uL RBC (4.7-6.1) M/uL Hgb (14.0-18.0) g/dL Hct (42-52) % MCV (80-100) fL MCH (25-34) pg MCHC (32-36) g/dL RDW Std Deviation (36.4-46.3) fL RDW Coeff of Ashok (11.5-14.5) % Plt Count (130-400) K/uL MPV (7.4-10.4) fL Immature Gran % (Auto) % Neut % (Auto) % Lymph % (Auto) % Brooks % (Auto) % Eos % (Auto) % Baso % (Auto) % Neut # (Auto) (1.4-6.5) K/uL Lymph # (Auto) (1.2-3.4) K/uL Brooks # (Auto) (0.11-0.59) K/uL Eos # (Auto) (0-0.5) K/uL Baso # (Auto) (0-0.2) K/uL Immature Gran # (Auto) (0.00-0.02) K/uL Sodium (136-145) mmol/L Potassium (3.5-5.1) mmol/L Chloride (98-107) mmol/L Carbon Dioxide (21-32) mmol/L Anion Gap (3-11) BUN (6-23) mg/dl Creatinine (0.6-1.4) mg/dl Est Cr Clr Drug Dosing ml/min Est GFR ( Amer) ml/min Est GFR (Non-Af Amer) ml/min BUN/Creatinine Ratio (10-20) Glucose (70-99(Fasting)) mg/dl Calcium (8.5-10.1) mg/dl Total Bilirubin (0.2-1.0) mg/dl AST (13-39) U/L ALT (7-52) U/L Alkaline Phosphatase (34-104) U/L Total Protein (6.0-8.3) gm/dl Albumin (3.4-5.0) gm/dl Globulin (2.5-4.0) gm/dl Albumin/Globulin Ratio (0.9-2) TSH (0.300-4.500) uIu/ml Free T4 (0.61-1.60) ng/dl Urine Color Yellow Urine Appearance Cloudy A (Clear) Urine pH 7.0 (4.5-7.5) Ur Specific [place] 1.018 (1.000-1.030) Urine Protein Negative (Negative) Urine Glucose (UA) Negative (Negative) Urine Ketones Trace H (Negative) Urine Blood Negative (Negative) Urine Nitrite Negative (Negative) Urine Bilirubin Negative (Negative) Urine Urobilinogen Negative (Negative) Ur Leukocyte Esterase Negative (Negative) Urine WBC (Auto) 1-5 (0-5) /hpf Urine RBC (Auto) 0-4 (0-4) /hpf U Hyaline Cast (Auto) 1-5 (0-5) /lpf U Epithel Cells (Auto) >30 H (0-5) /lpf Urine Bacteria (Auto) Negative (Negative) Ur Renal Epithelial Cell 0-5 (0-5) /lpf Salicylates (3.0-30) mg/dl Urine Opiates Screen Neg (Neg) Ur Methadone, Qual Neg (Neg) Acetaminophen (10-30) ug/ml Urine Barbiturates Neg (Neg) Ur Phencyclidine (PCP) Neg (Neg) U Amphetamin/Meth Scrn Neg (Neg) MDMA (Ecstasy) Screen Neg (Neg) U Benzodiazepines Scrn Neg (Neg) Ur Cocaine Metabolite Neg (Neg) U Marijuana (THC) Screen Pos H (Neg) Ethyl Alcohol mg/dL (<10.0) mg/dl SARS-CoV-2, RNA, NAAT (NEGATIVE) MDM Narrative Observation note Indication: Psych eval/placement Patient, with ASD, MDD, anxiety, ADHD was first seen at 1736 hrs and the observation time began at 2030 hrs and was necessary in order to have psych evaluation completed . Upon re-evaluation, 3 hours and 15 minutes of observation revealed that the patient should be admitted to inpatient psychiatry Disposition date and time October 17, 2021 7625. Impression & Plan Depression with suicidal ideation Discharge Plan Visit Data Chief Complaint: Mental Health Evaluation Stated Complaint: MENTAL EVALUATION ED Provider: Serjio Stone Discharge Problem: Depression with suicidal ideation Patient Disposition: Admitted As Inpatient Discharge Instructions Interventions: ED Discharge Assessment Last Done: 10/17/21 23:42 Forms Stand Alone Forms: [facility], Suicide Prevention Resources Prescriptions Prescriptions: No Action cyclobenzaprine 10 mg Tablet 10 mg PO TID PRN (Reason: Muscle Spasm) RF: 0 albuterol sulfate 90 mcg/actuation HFA aerosol inhaler 2 puff INHALATION QID PRN (Reason: Shortness Of Breath Or Wheezing) RF: 0 Ensure High Protein Liquid 1 ea PO TID RF: 0 cholecalciferol (vitamin D3) 1,250 mcg (50,000 unit) Capsule 1,250 mcg PO WK RF: 0 lorazepam 0.5 mg tablet 0.5 mg PO Q8H PRN (Reason: Anxiety) RF: 0 trazodone 150 mg tablet 200 mg PO HS RF: 0 tramadol [Ultram] 50 mg tablet 50 mg PO Q6H PRN (Reason: Pain, Severe) RF: 0 Referrals Referrals: Everardo Lemons MD [Primary Care Provider] -
[2021-10-17] MEDS ORDERED: BISMUTH SUBSALICYLATE LIQD 236 ML PO PRN (23:05)
[2021-10-17] MEDS ORDERED: ALUMINUM/MAGNESIUM SUSP 30 ML UDC PO PRN (23:05)
[2021-10-17] MEDS ORDERED: SODIUM CHLORIDE 0.65% NA SOLN 45 ML (OCEAN) PRN (23:05)
[2021-10-17] MEDS ORDERED: MAGNESIUM HYDROXIDE SUSP 30 ML UDC PO PRN (23:05)
[2021-10-17] MEDS ORDERED: hydrOXYzine HCl 25 MG TAB PO PRN (23:05)
[2021-10-17] MEDS ORDERED: ACETAMINOPHEN 325 MG TAB PO PRN (23:05)
[2021-10-18] MEDS: hydrOXYzine HCl 25 MG TAB PO PRN ×3 (08:05→20:37)
[2021-10-18] MEDS ORDERED: NICOTINE POLACRILEX 2 MG GUM MT PRN (08:27)
[2021-10-18] MEDS: NICOTINE 21 MG/24 HR TDSY TD SCH (09:35)
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
[2021-10-18] MEDS ORDERED: MIRTAZAPINE TAB 15 MG TAB PO SCH (22:00)
[2021-10-19] MEDS: NICOTINE 21 MG/24 HR TDSY TD SCH (09:05)
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
[2021-10-19 21:52] LABS: Marijuana Quant, GCMS Urine >5000 ng/mL (<5)
== END 2021-10-19 17:03 | disposition home or self-care (01) | DRG 881 ==
LOC: ED 17:21 → 3S 23:05